=== PATIENT | male | born 1965 | race Caucasian/White ===

== ENCOUNTER 2017-11-21 13:17 | Emergency (ER) | payer MEDICAID ==
[~2017-11-21] VITALS: Ht 172.7 cm; Wt 70.0 kg
[2017-11-21] MEDS ORDERED: LEVE500T53 PO (13:32)
[2017-11-21 14:00] LABS: BASOPHILS # (AUTO) 0.04 x10^3/uL (0-0.1); BASOPHILS % (AUTO) 1 % (0-1); EOSINOPHILS # (AUTO) 0.15 x10^3/uL (0-0.4); EOSINOPHILS % (AUTO) 2 % (1-7); LYMPHOCYTES # (AUTO) 2.03 x10^3/uL (1-3.4); LYMPHOCYTES % (AUTO) 28 % (22-44); MD NO; MEAN CORPUSCULAR HEMOGLOBIN 29.8 pg (27.5-34.5); MEAN CORPUSCULAR HGB CONC 33.5 g/dL (33.2-36.2); MEAN CORPUSCULAR VOLUME 88.8 fL (81-97); MEAN PLATELET VOLUME 8.2 fL (7.4-10.4); MONOCYTES # (AUTO) 0.66 x10^3/uL (0.2-0.8); MONOCYTES % (AUTO) 9 % (2-9); NEUTROPHILS # (AUTO) 4.38 x10^3/uL (1.8-6.8); NEUTROPHILS % (AUTO) 60 % (42-75); PLATELET COUNT 237 x10^3/uL (130-400); RED BLOOD COUNT 5.08 x10^6/uL (4.38-5.82); RED CELL DISTRIBUTION WIDTH 14.9 % (9.4-14.8)
[2017-11-21 14:09] LABS: ALANINE AMINOTRANSFERASE 29 U/L (12-78); ALBUMIN 3.9 g/dL (3.4-5.0); ANION GAP 7 mmol/L (5-15); CHLORIDE 105 mmol/L (98-107)
[2017-11-21 14:12] LABS: ALKALINE PHOSPHATASE 79 U/L (45-117); BILIRUBIN,TOTAL 0.5 mg/dL (0.2-1.0); CREATININE 0.76 mg/dL (0.7-1.3)
[2017-11-21 15:12] VITALS: BP 113/60
[2017-11-21 16:01] LABS: AMPHETAMINE SCREEN, URINE Negative (Negative); BARBITURATE SCREEN, URINE Negative (Negative); BENZODIAZEPINE SCREEN, URINE Negative (Negative); CANNABINOID SCREEN, URINE Positive (Negative); COCAINE SCREEN, URINE Negative (Negative); METHADONE SCREEN, URINE Negative (Negative); OPIATE SCREEN, URINE Negative (Negative)
== END 2017-11-21 15:33 | disposition home or self-care (01) ==
LOC: ED 15:30
DX: R55 Syncope and collapse (principal); F17.200 Nicotine dependence, unspecified, uncomplicated; Z79.899 Other long term (current) drug therapy
CPT/HCPCS: 36415; 80053; 80307; 85025; 93005; 99285

== ENCOUNTER 2017-11-29 22:26 | Emergency (ER) | payer MEDICAID ==
[~2017-11-29] VITALS: Ht 170.2 cm; Wt 80.0 kg
[~2017-11-29 22:26] MED LIST: LEVE500T53 PO
[2017-11-29] MEDS ORDERED: AZITHROMYCIN 500 MG TABLET ONE (22:39)
[2017-11-29] MEDS ORDERED: KETOROLAC 30 MG/1 ML ONE (22:39)
[2017-11-29] MEDS ORDERED: methylPREDNISolone SOD SUCC 125 MG/2 ML ONE (22:40)
[2017-11-29] MEDS ORDERED: ALBU1.25 NEB (22:47)
[2017-11-29] MEDS ORDERED: methylPREDNISolone SOD SUCC 125 MG/2 ML IVP ONE (23:00)
[2017-11-29] MEDS ORDERED: SODIUM CHLORIDE 0.9% 1,000ML IVBOLUS ONE (23:00)
[2017-11-29] MEDS ORDERED: AZITHROMYCIN 500 MG TABLET PO ONE (23:00)
[2017-11-29] MEDS ORDERED: KETOROLAC 30 MG/1 ML IVPush ONE (23:00)
[2017-11-29 23:15] LABS: BASOPHILS # (AUTO) 0.05 x10^3/uL (0-0.1); BASOPHILS % (AUTO) 1 % (0-1); EOSINOPHILS # (AUTO) 0.12 x10^3/uL (0-0.4); EOSINOPHILS % (AUTO) 1 % (1-7); LYMPHOCYTES # (AUTO) 2.38 x10^3/uL (1-3.4); LYMPHOCYTES % (AUTO) 29 % (22-44); MD NO; MEAN CORPUSCULAR HEMOGLOBIN 29.8 pg (27.5-34.5); MEAN CORPUSCULAR HGB CONC 33.6 g/dL (33.2-36.2); MEAN CORPUSCULAR VOLUME 88.8 fL (81-97); MEAN PLATELET VOLUME 7.9 fL (7.4-10.4); MONOCYTES # (AUTO) 0.81 x10^3/uL (0.2-0.8); MONOCYTES % (AUTO) 10 % (2-9); NEUTROPHILS # (AUTO) 4.85 x10^3/uL (1.8-6.8); NEUTROPHILS % (AUTO) 59 % (42-75); PLATELET COUNT 206 x10^3/uL (130-400); RED BLOOD COUNT 4.62 x10^6/uL (4.38-5.82); RED CELL DISTRIBUTION WIDTH 15.4 % (9.4-14.8)
[2017-11-29 23:26] LABS: ALANINE AMINOTRANSFERASE 29 U/L (12-78); ALBUMIN 3.3 g/dL (3.4-5.0); ANION GAP 12 mmol/L (5-15); CALCIUM 8.4 mg/dL (8.5-10.1); CHLORIDE 108 mmol/L (98-107); CREATININE 0.75 mg/dL (0.7-1.3)
[2017-11-29 23:28] LABS: ALKALINE PHOSPHATASE 74 U/L (45-117); BILIRUBIN,TOTAL 0.3 mg/dL (0.2-1.0); TOTAL PROTEIN 6.9 g/dL (6.4-8.2)
[2017-11-29 23:43] VITALS: BP 114/70
== END 2017-11-29 23:53 | disposition home or self-care (01) ==
LOC: ED 23:47
DX: J06.9 Acute upper respiratory infection, unspecified (principal); J44.9 Chronic obstructive pulmonary disease, unspecified; E86.0 Dehydration; G40.909 Epilepsy, unspecified, not intractable, without status epilepticus
CPT/HCPCS: 36415; 71045; 80053; 85025; 96361; 96374; 96375; 99285; J1885; J2930; J7030

== ENCOUNTER 2018-01-02 13:57 | Emergency (ER) | payer MEDICAID ==
[~2018-01-02] VITALS: Ht 167.6 cm; Wt 82.0 kg
[~2018-01-02 13:57] MED LIST changes: +ALBU1.25 NEB
[2018-01-02] MEDS ORDERED: ASPIRIN 81 MG TABLET CHEW PO ONE (14:30)
[2018-01-02 14:55] LABS: BASOPHILS # (AUTO) 0.03 x10^3/uL (0-0.1); BASOPHILS % (AUTO) 0 % (0-1); EOSINOPHILS # (AUTO) 0.14 x10^3/uL (0-0.4); EOSINOPHILS % (AUTO) 2 % (1-7); LYMPHOCYTES # (AUTO) 1.84 x10^3/uL (1-3.4); LYMPHOCYTES % (AUTO) 20 % (22-44); MD NO; MEAN CORPUSCULAR HEMOGLOBIN 31.1 pg (27.5-34.5); MEAN CORPUSCULAR HGB CONC 33.6 g/dL (33.2-36.2); MEAN CORPUSCULAR VOLUME 92.6 fL (81-97); MONOCYTES # (AUTO) 0.67 x10^3/uL (0.2-0.8); MONOCYTES % (AUTO) 7 % (2-9); NEUTROPHILS # (AUTO) 6.47 x10^3/uL (1.8-6.8); NEUTROPHILS % (AUTO) 71 % (42-75); PLATELET COUNT 204 x10^3/uL (130-400); RED BLOOD COUNT 4.97 x10^6/uL (4.38-5.82); RED CELL DISTRIBUTION WIDTH 16.5 % (9.4-14.8)
[2018-01-02 15:05] LABS: ALBUMIN 3.9 g/dL (3.4-5.0); ANION GAP 5 mmol/L (5-15); CALCIUM 8.7 mg/dL (8.5-10.1); CHLORIDE 108 mmol/L (98-107); CREATININE 0.92 mg/dL (0.7-1.3)
[2018-01-02 15:09] LABS: TROPONIN I < 0.015 ng/mL (0.000-0.045)
[2018-01-02] MEDS ORDERED: ASPIRIN 81 MG TABLET EC ONE (15:55)
[2018-01-02 15:56] VITALS: BP 125/65
[2018-01-02] MEDS ORDERED: ASPIRIN 81 MG TABLET CHEW ONE (15:59)
== END 2018-01-02 16:30 | disposition home or self-care (01) ==
LOC: ED 16:25
DX: R07.89 Other chest pain (principal); F17.200 Nicotine dependence, unspecified, uncomplicated
CPT/HCPCS: 36415; 71046; 80048; 82040; 84484; 85025; 93005; 99285

== ENCOUNTER 2018-01-25 18:44 | Emergency (ER) | payer MEDICAID ==
[~2018-01-25] VITALS: Ht 170.2 cm; Wt 77.2 kg
[2018-01-25] MEDS ORDERED: FAMOTIDINE 20 MG/2 ML IVP ONE (19:00)
[2018-01-25] MEDS ORDERED: SODIUM CHLORIDE 0.9% 1,000ML IVBOLUS ONE (19:00)
[2018-01-25] MEDS ORDERED: SODIUM CHLORIDE FLUSH 10ML SYR IVF ONE (19:00)
[2018-01-25] MEDS ORDERED: ONDANSETRON ODT 4 MG PO ONE (19:00)
[2018-01-25] MEDS ORDERED: PANTOPRAZOLE 80 MG in SODIUM CHLORIDE 0.9% 50 ML IVPB ONE (19:26)
[2018-01-25] MEDS ORDERED: MORPHINE SULFATE 4 MG/ML, 1ML IVPush PRN (19:30)
[2018-01-25] MEDS ORDERED: OCTREOTIDE 100MCG/ML, 1ML (0.1MG/ML) IV ONE (19:30)
[2018-01-25 19:49] LABS: ALANINE AMINOTRANSFERASE 30 U/L (12-78); ALBUMIN 3.9 g/dL (3.4-5.0); ANION GAP 8 mmol/L (5-15); CALCIUM 9.9 mg/dL (8.5-10.1); CHLORIDE 106 mmol/L (98-107); CREATININE 0.82 mg/dL (0.7-1.3)
[2018-01-25] MEDS ORDERED: ONDANSETRON ODT 4 MG ONE (19:50)
[2018-01-25 19:51] LABS: ALKALINE PHOSPHATASE 84 U/L (45-117); BILIRUBIN,TOTAL 0.5 mg/dL (0.2-1.0); TOTAL PROTEIN 8.1 g/dL (6.4-8.2)
[2018-01-25 20:33] LABS: BASOPHILS # (AUTO) 0.09 x10^3/uL (0-0.1); BASOPHILS % (AUTO) 1 % (0-1); EOSINOPHILS # (AUTO) 0.14 x10^3/uL (0-0.4); EOSINOPHILS % (AUTO) 1 % (1-7); LYMPHOCYTES # (AUTO) 1.75 x10^3/uL (1-3.4); LYMPHOCYTES % (AUTO) 13 % (22-44); MD NO; MEAN CORPUSCULAR HEMOGLOBIN 30.9 pg (27.5-34.5); MEAN CORPUSCULAR HGB CONC 33.4 g/dL (33.2-36.2); MEAN CORPUSCULAR VOLUME 92.5 fL (81-97); MEAN PLATELET VOLUME 7.9 fL (7.4-10.4); MONOCYTES % (AUTO) 8 % (2-9); NEUTROPHILS # (AUTO) 10.34 x10^3/uL (1.8-6.8); NEUTROPHILS % (AUTO) 77 % (42-75); PLATELET COUNT 280 x10^3/uL (130-400); RED BLOOD COUNT 5.55 x10^6/uL (4.38-5.82); RED CELL DISTRIBUTION WIDTH 15.5 % (9.4-14.8)
[2018-01-25 20:41] LABS: INTERNATIONAL NORMALIZED RATIO 1.06 (0.93-1.1); PROTHROMBIN TIME 10.9 Seconds (9.6-11.5)
[2018-01-25 21:30] VITALS: BP 133/85
== END 2018-01-25 21:33 | disposition home or self-care (01) ==
LOC: ED 21:27
DX: R11.2 Nausea with vomiting, unspecified (principal); J44.9 Chronic obstructive pulmonary disease, unspecified
CPT/HCPCS: 36415; 74021; 80053; 83690; 85025; 85610; 85730; 86677; 86850; 86900; 96365; 99285; C9113; Q0162

== ENCOUNTER 2018-02-09 08:07 | Emergency (ER) | payer MEDICAID ==
[~2018-02-09] VITALS: Ht 167.6 cm; Wt 76.8 kg
[2018-02-09] MEDS ORDERED: CEFAZOLIN 1,000 MG ONE (08:54)
[2018-02-09] MEDS ORDERED: SULFAMETH./TRIMETHOPRIM DS 800MG/160MG TABLET ONE (08:54)
[2018-02-09] MEDS ORDERED: CEFAZOLIN 1,000 MG IM ONE (09:00)
[2018-02-09] MEDS ORDERED: SULFAMETH./TRIMETHOPRIM DS 800MG/160MG TABLET PO ONE (09:00)
[2018-02-09 09:37] VITALS: BP 111/69
== END 2018-02-09 09:50 | disposition home or self-care (01) ==
LOC: ED 08:45
DX: L03.90 Cellulitis, unspecified (principal); T63.301A Toxic effect of unspecified spider venom, accidental (unintentional), initial encounter; J44.9 Chronic obstructive pulmonary disease, unspecified; Y99.8 Other external cause status; Y93.89 Activity, other specified; Y92.89 Other specified places as the place of occurrence of the external cause
CPT/HCPCS: 96372; 99283; J0690

== ENCOUNTER 2018-02-10 08:48 | Emergency (ER) | payer MEDICAID ==
[~2018-02-10] VITALS: Ht 170.2 cm; Wt 78.2 kg
[2018-02-10 08:50] VITALS: BP 117/76
[2018-02-10] MEDS ORDERED: FLUCONAZOLE 100 MG TABLET ONE (09:25)
[2018-02-10] MEDS ORDERED: FLUCONAZOLE 100 MG TABLET PO ONE (09:30)
== END 2018-02-10 09:53 | disposition home or self-care (01) ==
LOC: ED 09:20
DX: B35.6 Tinea cruris (principal); J44.9 Chronic obstructive pulmonary disease, unspecified
CPT/HCPCS: 99283

== ENCOUNTER 2018-02-11 11:53 | Emergency (ER) | payer MEDICAID ==
[~2018-02-11] VITALS: Ht 170.2 cm; Wt 76.6 kg
[2018-02-11] MEDS ORDERED: BACITRACIN ZINC OINT 500U/GM, 0.9 GM ONE (12:37)
[2018-02-11 13:09] VITALS: BP 105/58
== END 2018-02-11 13:41 | disposition home or self-care (01) ==
LOC: ED 12:10
DX: L03.116 Cellulitis of left lower limb (principal); B35.6 Tinea cruris; Z76.0 Encounter for issue of repeat prescription
CPT/HCPCS: 99283

== ENCOUNTER 2018-02-22 19:17 | Emergency (ER) | payer MEDICAID ==
[2018-02-22 19:34] VITALS: BP 117/85
[2018-02-22] MEDS ORDERED: IBUPROFEN 200 MG TABLET ONE (19:53)
[2018-02-22] MEDS ORDERED: IBUPROFEN 200 MG TABLET PO ONE (20:00)
== END 2018-02-22 20:27 | disposition home or self-care (01) ==
LOC: ED 20:11
DX: M79.672 Pain in left foot (principal); M79.671 Pain in right foot; F17.200 Nicotine dependence, unspecified, uncomplicated; Z59.0 Homelessness; Z72.89 Other problems related to lifestyle; Z91.14 Patient's other noncompliance with medication regimen
CPT/HCPCS: 99282

== ENCOUNTER 2018-02-27 06:12 | Emergency (ER) | payer MEDICAID ==
[~2018-02-27] VITALS: Ht 170.2 cm; Wt 71.4 kg
[2018-02-27 06:16] VITALS: BP 136/85
[2018-02-27] MEDS ORDERED: LEVE100020 PO (06:45)
[2018-02-27 06:58] LABS: BASOPHILS # (AUTO) 0.02 x10^3/uL (0-0.1); BASOPHILS % (AUTO) 0 % (0-1); EOSINOPHILS # (AUTO) 0.08 x10^3/uL (0-0.4); EOSINOPHILS % (AUTO) 1 % (1-7); LYMPHOCYTES # (AUTO) 1.33 x10^3/uL (1-3.4); LYMPHOCYTES % (AUTO) 18 % (22-44); MD NO; MEAN CORPUSCULAR HEMOGLOBIN 31.3 pg (27.5-34.5); MEAN CORPUSCULAR HGB CONC 33.5 g/dL (33.2-36.2); MEAN CORPUSCULAR VOLUME 93.5 fL (81-97); MEAN PLATELET VOLUME 8.1 fL (7.4-10.4); MONOCYTES # (AUTO) 0.57 x10^3/uL (0.2-0.8); MONOCYTES % (AUTO) 8 % (2-9); NEUTROPHILS # (AUTO) 5.34 x10^3/uL (1.8-6.8); NEUTROPHILS % (AUTO) 73 % (42-75); PLATELET COUNT 196 x10^3/uL (130-400); RED BLOOD COUNT 4.82 x10^6/uL (4.38-5.82); RED CELL DISTRIBUTION WIDTH 14.8 % (9.4-14.8)
[2018-02-27] MEDS ORDERED: ACETAMINOPHEN 500 MG TABLET PO ONE (07:00)
[2018-02-27 07:11] LABS: ALANINE AMINOTRANSFERASE 23 U/L (12-78); ALBUMIN 3.2 g/dL (3.4-5.0); ANION GAP 9 mmol/L (5-15); CALCIUM 8.3 mg/dL (8.5-10.1); CHLORIDE 109 mmol/L (98-107); CREATININE 0.69 mg/dL (0.7-1.3)
[2018-02-27 07:13] LABS: ALKALINE PHOSPHATASE 73 U/L (45-117); BILIRUBIN,TOTAL 0.4 mg/dL (0.2-1.0); TOTAL PROTEIN 6.9 g/dL (6.4-8.2)
[2018-02-27] MEDS ORDERED: COLCHICINE 0.6 MG TABLET ONE (08:30)
[2018-02-27] MEDS ORDERED: COLCHICINE 0.6 MG TABLET PO ONE ×2 (08:30)
== END 2018-02-27 08:37 | disposition home or self-care (01) ==
LOC: ED 07:49
DX: G40.409 Other generalized epilepsy and epileptic syndromes, not intractable, without status epilepticus (principal); M10.071 Idiopathic gout, right ankle and foot; J44.9 Chronic obstructive pulmonary disease, unspecified; F17.200 Nicotine dependence, unspecified, uncomplicated; Z59.0 Homelessness
CPT/HCPCS: 36415; 70450; 80053; 85025; 99285

== ENCOUNTER 2018-03-26 15:16 | Emergency (ER) | payer MEDICAID ==
[~2018-03-26] VITALS: Ht 170.2 cm; Wt 76.0 kg
[~2018-03-26 15:16] MED LIST changes: +LEVE100020 PO
[2018-03-26 15:26] VITALS: BP 132/79
== END 2018-03-26 16:47 | disposition home or self-care (01) ==
LOC: ED 16:30
DX: F10.129 Alcohol abuse with intoxication, unspecified (principal); F32.9 Major depressive disorder, single episode, unspecified; Z72.9 Problem related to lifestyle, unspecified; M10.9 Gout, unspecified; J44.9 Chronic obstructive pulmonary disease, unspecified; F17.200 Nicotine dependence, unspecified, uncomplicated
CPT/HCPCS: 99284

== ENCOUNTER 2018-04-17 17:31 | Emergency (ER) | payer MEDICAID ==
[~2018-04-17] VITALS: Ht 172.7 cm; Wt 81.8 kg
[~2018-04-17 17:31] MED LIST changes: +ACID REFLUX MED; +LEVE750T37 PO; +OLAN10TA9 PO
[2018-04-17 17:39] VITALS: BP 100/67
[2018-04-17] MEDS ORDERED: BACITRACIN ZINC OINT 500U/GM, 0.9 GM ONE (18:47)
== END 2018-04-17 19:40 | disposition left against medical advice (07) ==
LOC: ED 19:34
DX: S00.81XA Abrasion of other part of head, initial encounter (principal); S09.90XA Unspecified injury of head, initial encounter; J44.9 Chronic obstructive pulmonary disease, unspecified; W22.8XXA Striking against or struck by other objects, initial encounter; Y93.89 Activity, other specified; Y92.098 Other place in other non-institutional residence as the place of occurrence of the external cause; Y99.8 Other external cause status; G40.909 Epilepsy, unspecified, not intractable, without status epilepticus
CPT/HCPCS: 93005; 99283

== ENCOUNTER 2018-04-23 19:34 | Emergency (ER) | payer MEDICAID ==
[~2018-04-23] VITALS: Ht 167.6 cm; Wt 60.0 kg
[2018-04-23] MEDS ORDERED: BACITRACIN ZINC OINT 500U/GM, 0.9 GM ONE (20:29)
[2018-04-23 20:46] LABS: BASOPHILS # (AUTO) 0.06 x10^3/uL (0-0.1); BASOPHILS % (AUTO) 1 % (0-1); EOSINOPHILS # (AUTO) 0.14 x10^3/uL (0-0.4); EOSINOPHILS % (AUTO) 2 % (1-7); LYMPHOCYTES # (AUTO) 1.92 x10^3/uL (1-3.4); LYMPHOCYTES % (AUTO) 23 % (22-44); MD NO; MEAN CORPUSCULAR HEMOGLOBIN 30.1 pg (27.5-34.5); MEAN CORPUSCULAR HGB CONC 33.1 g/dL (33.2-36.2); MEAN PLATELET VOLUME 7.6 fL (7.4-10.4); MONOCYTES # (AUTO) 0.67 x10^3/uL (0.2-0.8); MONOCYTES % (AUTO) 8 % (2-9); NEUTROPHILS # (AUTO) 5.44 x10^3/uL (1.8-6.8); NEUTROPHILS % (AUTO) 66 % (42-75); PLATELET COUNT 278 x10^3/uL (130-400); RED BLOOD COUNT 4.65 x10^6/uL (4.38-5.82); RED CELL DISTRIBUTION WIDTH 14.8 % (9.4-14.8)
[2018-04-23 20:57] LABS: ALBUMIN 3.2 g/dL (3.4-5.0); ANION GAP 9 mmol/L (5-15); CALCIUM 8.3 mg/dL (8.5-10.1); CHLORIDE 110 mmol/L (98-107); CREATININE 0.88 mg/dL (0.7-1.3)
[2018-04-23 21:52] VITALS: BP 119/60
== END 2018-04-23 22:16 | disposition home or self-care (01) ==
LOC: ED 22:10
DX: G43.C0 Periodic headache syndromes in child or adult, not intractable (principal); R05 Cough; F10.20 Alcohol dependence, uncomplicated; Z72.9 Problem related to lifestyle, unspecified; F17.200 Nicotine dependence, unspecified, uncomplicated; J44.9 Chronic obstructive pulmonary disease, unspecified
CPT/HCPCS: 36415; 70450; 71045; 80048; 80307; 82040; 85025; 93005; 99285

== ENCOUNTER 2018-04-25 08:11 | Emergency (ER) | payer MEDICAID ==
[~2018-04-25] VITALS: Ht 170.2 cm; Wt 83.0 kg
[2018-04-25 08:33] VITALS: BP 138/79
== END 2018-04-25 09:58 | disposition home or self-care (01) ==
LOC: ED 09:50
DX: S00.81XD Abrasion of other part of head, subsequent encounter (principal); J44.9 Chronic obstructive pulmonary disease, unspecified; M10.9 Gout, unspecified; X58.XXXD Exposure to other specified factors, subsequent encounter; Z59.0 Homelessness
CPT/HCPCS: 99281

== ENCOUNTER 2018-05-01 13:30 | Emergency (ER) | payer MEDICAID ==
[~2018-05-01] VITALS: Ht 170.2 cm; Wt 80.8 kg
[2018-05-01 13:46] VITALS: BP 121/86
== END 2018-05-01 13:55 | disposition home or self-care (01) ==
LOC: ED 13:45
DX: B86 Scabies (principal); Z72.9 Problem related to lifestyle, unspecified; Z59.0 Homelessness; J44.9 Chronic obstructive pulmonary disease, unspecified; F41.1 Generalized anxiety disorder
CPT/HCPCS: 99283

== ENCOUNTER 2018-05-16 13:38 | Emergency (ER) | payer MEDICAID ==
[~2018-05-16] VITALS: Ht 172.7 cm; Wt 79.0 kg
[2018-05-16 13:47] VITALS: BP 111/74
== END 2018-05-16 14:57 | disposition home or self-care (01) ==
LOC: ED 14:50
DX: B86 Scabies (principal); J20.8 Acute bronchitis due to other specified organisms; B87.89 Myiasis of other sites; F41.1 Generalized anxiety disorder; J44.9 Chronic obstructive pulmonary disease, unspecified
CPT/HCPCS: 99283

== ENCOUNTER 2018-05-21 08:01 | Inpatient (IN) | payer MEDICAID ==
[~2018-05-21] VITALS: Ht 172.7 cm; Wt 70.2 kg
[2018-05-21] MEDS ORDERED: CLINDAMYCIN PMX 900MG/50ML 50 ML IVPB ONE (08:30)
[2018-05-21] MEDS ORDERED: MORPHINE SULFATE 4 MG/ML, 1ML IV PRN (08:30)
[2018-05-21] MEDS ORDERED: SODIUM CHLORIDE FLUSH 10ML SYR IVF ONE (08:30)
[2018-05-21] MEDS ORDERED: LIDOCAINE-MPF 1%, 5ML INFIL ONE (08:30)
[2018-05-21] MEDS ORDERED: SODIUM CHLORIDE 0.9% 1,000ML IVBOLUS ONE (08:30)
[2018-05-21] MEDS ORDERED: ONDANSETRON 2MG/ML, 2ML IVPush ONE (08:30)
[2018-05-21] MEDS ORDERED: LIDOCAINE-MPF 1%, 5ML ONE (08:52)
[2018-05-21] MEDS ORDERED: ONDANSETRON 2MG/ML, 2ML ONE (08:52)
[2018-05-21] MEDS ORDERED: CLINDAMYCIN PMX 900MG/50ML 50 ML ONE (08:53)
[2018-05-21] MEDS ORDERED: MORPHINE SULFATE 4 MG/ML, 1ML ONE (08:53)
[2018-05-21 09:14] LABS: HCT (SEDRATE) 43.7 % (39.2-51.8)
[2018-05-21 09:15] LABS: MEAN CORPUSCULAR HEMOGLOBIN 30.4 pg (27.5-34.5); MEAN CORPUSCULAR HGB CONC 33.8 g/dL (33.2-36.2); MEAN CORPUSCULAR VOLUME 89.9 fL (81-97); PLATELET COUNT 187 x10^3/uL (130-400); RED BLOOD COUNT 4.88 x10^6/uL (4.38-5.82); RED CELL DISTRIBUTION WIDTH 15.3 % (9.4-14.8)
[2018-05-21 09:25] LABS: ANION GAP 8 mmol/L (5-15); CALCIUM 7.9 mg/dL (8.5-10.1); CHLORIDE 99 mmol/L (98-107); CREATININE 0.67 mg/dL (0.7-1.3)
[2018-05-21 09:26] LABS: ALBUMIN 3.2 g/dL (3.4-5.0)
[2018-05-21 09:42] LABS: BASOPHILS # (AUTO) 0.04 x10^3/uL (0-0.1); BASOPHILS % (AUTO) 0 % (0-1); EOSINOPHILS % (AUTO) 0 % (1-7); LYMPHOCYTES # (AUTO) 1.76 x10^3/uL (1-3.4); LYMPHOCYTES % (AUTO) 12 % (22-44); MD SCAN; MONOCYTES # (AUTO) 1.99 x10^3/uL (0.2-0.8); MONOCYTES % (AUTO) 14 % (2-9); NEUTROPHILS # (AUTO) 10.99 x10^3/uL (1.8-6.8); NEUTROPHILS % (AUTO) 74 % (42-75)
[2018-05-21] MEDS ORDERED: AMPICILLIN/SULBACTAM 3 GM in SODIUM CHLORIDE 0.9% 100 ML IV ONE (10:30)
[2018-05-21] MEDS ORDERED: VANCOMYCIN PER PHARMACY MC PRN ×2 (10:30→12:00)
[2018-05-21] MEDS ORDERED: PHARMACOKINETIC CONSULTATION MC ONE ×2 (11:00→13:30)
[2018-05-21] MEDS ORDERED: VANCOMYCIN 1,500 MG in SODIUM CHLORIDE 0.9% 250 ML IV ONE (11:00)
[2018-05-21] MEDS ORDERED: morphine SULFATE 10 MG/ML, 1ML IVPush PRN (12:00)
[2018-05-21] MEDS ORDERED: ONDANSETRON ODT 4 MG PO PRN (12:00)
[2018-05-21] MEDS ORDERED: BISACODYL 10 MG SUPP PR PRN (12:00)
[2018-05-21] MEDS ORDERED: LABETALOL 5MG/ML, 20ML IVPush PRN (12:00)
[2018-05-21] MEDS ORDERED: ENALAPRILAT 1.25 MG/ML, 2ML IVPush PRN (12:00)
[2018-05-21] MEDS ORDERED: ONDANSETRON 2MG/ML, 2ML IVPush PRN (12:00)
[2018-05-21] MEDS ORDERED: PHARMACOKINETIC MONITORING MC PRN (13:30)
[2018-05-21] MEDS: NICOTINE 21 MG/24 HR PATCH.TD24 TD SCH (13:45)
[2018-05-21] MEDS: SODIUM CHLORIDE 0.9% 1,000 ML IV SCH ×2 (13:45→22:17)
[2018-05-21 15:24] LABS: MICROSCOPIC NOT IND
[2018-05-21 15:32] LABS: AMPHETAMINE SCREEN, URINE Positive (Negative); BARBITURATE SCREEN, URINE Negative (Negative); BENZODIAZEPINE SCREEN, URINE Negative (Negative); CANNABINOID SCREEN, URINE Positive (Negative); COCAINE SCREEN, URINE Negative (Negative); METHADONE SCREEN, URINE Negative (Negative); OPIATE SCREEN, URINE Positive (Negative)
[2018-05-21 15:35] LABS: CULTURE INDICATED? NO
[2018-05-21] MEDS: AMPICILLIN/SULBACTAM 3 GM in SODIUM CHLORIDE 0.9% 100 ML IV SCH (18:30)
[2018-05-21] MEDS: ACETAMINOPHEN 325 MG TABLET PO PRN (18:30)
[2018-05-21 19:08] VITALS: BP 127/77
[2018-05-21] MEDS ORDERED: LEVETIRACETAM 100 MG/ML ORAL SOL PO SCH (21:00)
[2018-05-21] MEDS: DOCUSATE 100 MG CAPSULE PO SCH (22:17)
[2018-05-21] MEDS: VANCOMYCIN 1,500 MG in SODIUM CHLORIDE 0.9% 250 ML IV SCH (22:53)
[2018-05-21] MEDS ORDERED: PIPERONYL BUTOXIDE/PYRETHRINS SHAMPOO TP SCH (23:30)
[2018-05-22 01:38] VITALS: BP 112/72
[2018-05-22] MEDS: SODIUM CHLORIDE 0.9% 1,000 ML IV SCH ×2 (02:42→11:53)
[2018-05-22] MEDS: AMPICILLIN/SULBACTAM 3 GM in SODIUM CHLORIDE 0.9% 100 ML IV SCH ×4 (02:42→20:27)
[2018-05-22 06:05] LABS: BASOPHILS # (AUTO) 0.08 x10^3/uL (0-0.1); BASOPHILS % (AUTO) 1 % (0-1); EOSINOPHILS # (AUTO) 0.11 x10^3/uL (0-0.4); EOSINOPHILS % (AUTO) 1 % (1-7); LYMPHOCYTES # (AUTO) 1.66 x10^3/uL (1-3.4); LYMPHOCYTES % (AUTO) 15 % (22-44); MD NO; MEAN CORPUSCULAR HEMOGLOBIN 30.7 pg (27.5-34.5); MEAN CORPUSCULAR HGB CONC 34.1 g/dL (33.2-36.2); MEAN CORPUSCULAR VOLUME 90.1 fL (81-97); MEAN PLATELET VOLUME 8.2 fL (7.4-10.4); MONOCYTES # (AUTO) 1.36 x10^3/uL (0.2-0.8); MONOCYTES % (AUTO) 12 % (2-9); NEUTROPHILS # (AUTO) 7.85 x10^3/uL (1.8-6.8); NEUTROPHILS % (AUTO) 71 % (42-75); PLATELET COUNT 166 x10^3/uL (130-400); RED BLOOD COUNT 4.18 x10^6/uL (4.38-5.82)
[2018-05-22 06:16] LABS: ALBUMIN 2.6 g/dL (3.4-5.0); ANION GAP 6 mmol/L (5-15); CALCIUM 7.7 mg/dL (8.5-10.1); CHLORIDE 104 mmol/L (98-107)
[2018-05-22 06:19] LABS: ALANINE AMINOTRANSFERASE 143 U/L (12-78); ALKALINE PHOSPHATASE 115 U/L (45-117); BILIRUBIN,TOTAL 0.8 mg/dL (0.2-1.0); TOTAL PROTEIN 6.6 g/dL (6.4-8.2)
[2018-05-22 08:15] VITALS: BP 114/75
[2018-05-22] MEDS: POLYETHYLENE GLYCOL 17 GM PACKET PO SCH (08:59)
[2018-05-22] MEDS: ACETAMINOPHEN 325 MG TABLET PO PRN ×3 (08:59→19:09)
[2018-05-22] MEDS: LEVETIRACETAM 500 MG TABLET PO SCH ×2 (08:59→20:26)
[2018-05-22] MEDS: DOCUSATE 100 MG CAPSULE PO SCH ×2 (08:59→20:27)
[2018-05-22] MEDS: VANCOMYCIN 1,500 MG in SODIUM CHLORIDE 0.9% 250 ML IV SCH ×2 (11:13→22:37)
[2018-05-22] MEDS: NICOTINE 21 MG/24 HR PATCH.TD24 TD SCH (12:13)
[2018-05-22 13:46] VITALS: BP 113/70
[2018-05-22 20:06] VITALS: BP 118/75
[2018-05-22] MEDS: ENOXAPARIN 40 MG/0.4 ML SQ SCH (20:26)
[2018-05-22] MEDS: HYDROcodone/APAP 5/325 TABLET PO PRN (20:36)
[2018-05-23] MEDS: SODIUM CHLORIDE 0.9% 1,000 ML IV SCH (01:34)
[2018-05-23] MEDS: HYDROcodone/APAP 5/325 TABLET PO PRN ×4 (01:40→20:11)
[2018-05-23 01:45] VITALS: BP 104/64
[2018-05-23] MEDS: AMPICILLIN/SULBACTAM 3 GM in SODIUM CHLORIDE 0.9% 100 ML IV SCH ×4 (02:47→20:11)
[2018-05-23 05:41] LABS: ALANINE AMINOTRANSFERASE 135 U/L (12-78); ALBUMIN 2.6 g/dL (3.4-5.0); ANION GAP 5 mmol/L (5-15); CALCIUM 7.7 mg/dL (8.5-10.1); CHLORIDE 109 mmol/L (98-107); CREATININE 0.52 mg/dL (0.7-1.3)
[2018-05-23 05:41] LABS: BASOPHILS # (AUTO) 0.04 x10^3/uL (0-0.1); BASOPHILS % (AUTO) 1 % (0-1); EOSINOPHILS # (AUTO) 0.16 x10^3/uL (0-0.4); EOSINOPHILS % (AUTO) 2 % (1-7); LYMPHOCYTES # (AUTO) 1.59 x10^3/uL (1-3.4); LYMPHOCYTES % (AUTO) 21 % (22-44); MD NO; MEAN CORPUSCULAR HEMOGLOBIN 30.6 pg (27.5-34.5); MEAN CORPUSCULAR HGB CONC 33.4 g/dL (33.2-36.2); MEAN CORPUSCULAR VOLUME 91.6 fL (81-97); MEAN PLATELET VOLUME 8.7 fL (7.4-10.4); MONOCYTES # (AUTO) 0.79 x10^3/uL (0.2-0.8); MONOCYTES % (AUTO) 11 % (2-9); NEUTROPHILS # (AUTO) 4.94 x10^3/uL (1.8-6.8); NEUTROPHILS % (AUTO) 66 % (42-75); PLATELET COUNT 186 x10^3/uL (130-400); RED BLOOD COUNT 4.19 x10^6/uL (4.38-5.82); RED CELL DISTRIBUTION WIDTH 15.9 % (9.4-14.8)
[2018-05-23 05:43] LABS: ALKALINE PHOSPHATASE 121 U/L (45-117); BILIRUBIN,TOTAL 0.4 mg/dL (0.2-1.0); TOTAL PROTEIN 6.8 g/dL (6.4-8.2)
[2018-05-23 08:09] VITALS: BP 124/75
[2018-05-23] MEDS: LEVETIRACETAM 500 MG TABLET PO SCH ×2 (08:11→20:59)
[2018-05-23] MEDS: DOCUSATE 100 MG CAPSULE PO SCH ×2 (08:11→20:59)
[2018-05-23] MEDS: POLYETHYLENE GLYCOL 17 GM PACKET PO SCH (08:11)
[2018-05-23] MEDS: VANCOMYCIN 1,500 MG in SODIUM CHLORIDE 0.9% 250 ML IV SCH ×2 (11:12→22:51)
[2018-05-23] MEDS: NICOTINE 21 MG/24 HR PATCH.TD24 TD SCH (11:12)
[2018-05-23 13:40] LABS: ALBUMIN 2.6 g/dL (3.4-5.0); ANION GAP 5 mmol/L (5-15); CALCIUM 8.5 mg/dL (8.5-10.1); CHLORIDE 106 mmol/L (98-107)
[2018-05-23 13:42] VITALS: BP 106/63
[2018-05-23 13:45] LABS: ALANINE AMINOTRANSFERASE 136 U/L (12-78); ALKALINE PHOSPHATASE 122 U/L (45-117); BILIRUBIN,TOTAL 0.5 mg/dL (0.2-1.0); CREATININE 0.58 mg/dL (0.7-1.3); TOTAL PROTEIN 6.9 g/dL (6.4-8.2)
[2018-05-23 19:03] VITALS: BP 133/76
[2018-05-23] MEDS: ENOXAPARIN 40 MG/0.4 ML SQ SCH (20:59)
[2018-05-24] MEDS: AMPICILLIN/SULBACTAM 3 GM in SODIUM CHLORIDE 0.9% 100 ML IV SCH ×2 (02:19→08:01)
[2018-05-24 02:36] VITALS: BP 112/68
[2018-05-24 07:22] VITALS: BP 121/78
[2018-05-24] MEDS: DOCUSATE 100 MG CAPSULE PO SCH ×2 (08:01→21:10)
[2018-05-24] MEDS: LEVETIRACETAM 500 MG TABLET PO SCH ×2 (08:01→21:10)
[2018-05-24] MEDS: POLYETHYLENE GLYCOL 17 GM PACKET PO SCH (08:01)
[2018-05-24] MEDS: NICOTINE 21 MG/24 HR PATCH.TD24 TD SCH (12:36)
[2018-05-24] MEDS: VANCOMYCIN 1,500 MG in SODIUM CHLORIDE 0.9% 250 ML IV SCH ×2 (12:36→22:53)
[2018-05-24 13:29] VITALS: BP 114/77
[2018-05-24 20:02] VITALS: BP 117/74
[2018-05-24] MEDS: HYDROcodone/APAP 5/325 TABLET PO PRN (21:09)
[2018-05-24] MEDS: AMOXICILLIN/CLAV 875-125MG TABLET PO SCH (21:10)
[2018-05-24] MEDS: ENOXAPARIN 40 MG/0.4 ML SQ SCH (21:11)
[2018-05-25 01:43] VITALS: BP 104/65
[2018-05-25 06:44] VITALS: BP 102/70
[2018-05-25] MEDS: HYDROcodone/APAP 5/325 TABLET PO PRN ×4 (08:48→21:51)
[2018-05-25] MEDS: DOCUSATE 100 MG CAPSULE PO SCH ×2 (08:48→21:53)
[2018-05-25] MEDS: AMOXICILLIN/CLAV 875-125MG TABLET PO SCH ×2 (08:48→21:52)
[2018-05-25] MEDS: LEVETIRACETAM 500 MG TABLET PO SCH ×2 (08:48→21:52)
[2018-05-25] MEDS: POLYETHYLENE GLYCOL 17 GM PACKET PO SCH (08:49)
[2018-05-25] MEDS: NICOTINE 21 MG/24 HR PATCH.TD24 TD SCH (11:43)
[2018-05-25] MEDS: VANCOMYCIN 1,500 MG in SODIUM CHLORIDE 0.9% 250 ML IV SCH ×2 (11:43→23:04)
[2018-05-25 12:23] VITALS: BP 100/61
[2018-05-25 18:59] VITALS: BP 120/74
[2018-05-25] MEDS: ENOXAPARIN 40 MG/0.4 ML SQ SCH (21:53)
[2018-05-26 01:18] VITALS: BP 123/77
[2018-05-26] MEDS: HYDROcodone/APAP 5/325 TABLET PO PRN ×2 (02:03→15:29)
[2018-05-26] MEDS ORDERED: ACET325T14 PO (07:38)
[2018-05-26] MEDS ORDERED: AMOX1TAB12 PO (07:38)
[2018-05-26] MEDS ORDERED: SULF-169 PO (07:38)
[2018-05-26] MEDS: POLYETHYLENE GLYCOL 17 GM PACKET PO SCH (09:00)
[2018-05-26] MEDS: DOCUSATE 100 MG CAPSULE PO SCH (09:00)
[2018-05-26] MEDS: AMOXICILLIN/CLAV 875-125MG TABLET PO SCH (09:00)
[2018-05-26 09:40] VITALS: BP 115/73
[2018-05-26] MEDS: LEVETIRACETAM 500 MG TABLET PO SCH (10:07)
[2018-05-26] MEDS: VANCOMYCIN 1,500 MG in SODIUM CHLORIDE 0.9% 250 ML IV SCH (11:00)
[2018-05-26] MEDS: NICOTINE 21 MG/24 HR PATCH.TD24 TD SCH (12:00)
== END 2018-05-26 16:00 | disposition home or self-care (01) | DRG 872 ==
LOC: ED 08:46 → EDIP 10:55 → 3NE 11:49 → 4NOR 05-22 01:52
PROVIDERS: ADMIT Hospitalist; ATTEND Hospitalist
DX: A41.9 Sepsis, unspecified organism (principal); L03.114 Cellulitis of left upper limb; S62.391B Other fracture of second metacarpal bone, left hand, initial encounter for open fracture; E87.1 Hypo-osmolality and hyponatremia; W20.8XXA Other cause of strike by thrown, projected or falling object, initial encounter; Y93.89 Activity, other specified; Y92.89 Other specified places as the place of occurrence of the external cause; Y99.8 Other external cause status; F12.10 Cannabis abuse, uncomplicated; F15.10 Other stimulant abuse, uncomplicated; F17.210 Nicotine dependence, cigarettes, uncomplicated; G40.909 Epilepsy, unspecified, not intractable, without status epilepticus; G89.29 Other chronic pain; Z59.0 Homelessness; Z91.19 Patient's noncompliance with other medical treatment and regimen; Z87.820 Personal history of traumatic brain injury; J44.9 Chronic obstructive pulmonary disease, unspecified; B95.0 Streptococcus, group A, as the cause of diseases classified elsewhere; Z79.899 Other long term (current) drug therapy
CPT/HCPCS: 36415; 80048; 80053; 80202; 80307; 81003; 82040; 83605; 85025; 85651; 86140; 87040; 87070; 87077; 87147; 87186; 87205; 96365; 96368; 96375; 99285; G0378; J0295; J1650; J2405; J3370; J2270; J7030; J7050

== ENCOUNTER 2018-05-28 12:23 | Emergency (ER) | payer MEDICAID ==
[~2018-05-28] VITALS: Ht 172.7 cm; Wt 81.0 kg
[~2018-05-28 12:23] MED LIST changes: +ACET325T14 PO; +AMOX1TAB12 PO; +SULF-169 PO
[2018-05-28 12:36] VITALS: BP 133/87
== END 2018-05-28 13:17 | disposition home or self-care (01) ==
LOC: ED 12:56
DX: L03.114 Cellulitis of left upper limb (principal); J44.9 Chronic obstructive pulmonary disease, unspecified; G40.909 Epilepsy, unspecified, not intractable, without status epilepticus; M10.9 Gout, unspecified
CPT/HCPCS: 99283

== ENCOUNTER 2018-06-14 13:45 | Emergency (ER) | payer MEDICAID ==
[~2018-06-14] VITALS: Ht 172.7 cm; Wt 79.3 kg
[2018-06-14 13:46] VITALS: BP 113/76
[2018-06-14] MEDS ORDERED: LEVE500T53 PO (14:40)
== END 2018-06-14 15:43 | disposition home or self-care (01) ==
LOC: ED 15:20
DX: S62.311A Displaced fracture of base of second metacarpal bone, left hand, initial encounter for closed fracture (principal); F12.10 Cannabis abuse, uncomplicated; W31.89XA Contact with other specified machinery, initial encounter; Y93.89 Activity, other specified; Y92.89 Other specified places as the place of occurrence of the external cause; Y99.8 Other external cause status
CPT/HCPCS: 29125; 99284

== ENCOUNTER 2018-06-16 07:40 | Emergency (ER) | payer MEDICAID ==
[~2018-06-16] VITALS: Ht 172.7 cm; Wt 77.4 kg
[2018-06-16 07:43] VITALS: BP 135/82
[2018-06-16] MEDS ORDERED: ACETAMINOPHEN 500 MG TABLET ONE (08:09)
[2018-06-16] MEDS ORDERED: NAPR-685 PO (08:23)
[2018-06-16] MEDS ORDERED: ACETAMINOPHEN 500 MG TABLET PO ONE (09:00)
== END 2018-06-16 08:38 | disposition home or self-care (01) ==
LOC: ED 08:07
DX: S62.311A Displaced fracture of base of second metacarpal bone, left hand, initial encounter for closed fracture (principal); J44.9 Chronic obstructive pulmonary disease, unspecified; G40.909 Epilepsy, unspecified, not intractable, without status epilepticus; X58.XXXA Exposure to other specified factors, initial encounter; Y93.89 Activity, other specified; Y92.89 Other specified places as the place of occurrence of the external cause; Y99.8 Other external cause status
CPT/HCPCS: 29260; 99283

== ENCOUNTER 2018-06-22 15:26 | Emergency (ER) | payer MEDICAID ==
[~2018-06-22] VITALS: Ht 172.7 cm; Wt 75.0 kg
[~2018-06-22 15:26] MED LIST changes: +NAPR-685 PO
[2018-06-22 15:30] VITALS: BP 118/68
[2018-06-22 16:04] LABS: BASOPHILS # (AUTO) 0.04 x10^3/uL (0-0.1); BASOPHILS % (AUTO) 1 % (0-1); EOSINOPHILS # (AUTO) 0.12 x10^3/uL (0-0.4); EOSINOPHILS % (AUTO) 2 % (1-7); LYMPHOCYTES # (AUTO) 1.25 x10^3/uL (1-3.4); LYMPHOCYTES % (AUTO) 18 % (22-44); MD NO; MEAN CORPUSCULAR HEMOGLOBIN 30.6 pg (27.5-34.5); MEAN CORPUSCULAR HGB CONC 34.2 g/dL (33.2-36.2); MEAN CORPUSCULAR VOLUME 89.6 fL (81-97); MONOCYTES # (AUTO) 0.73 x10^3/uL (0.2-0.8); MONOCYTES % (AUTO) 11 % (2-9); NEUTROPHILS # (AUTO) 4.71 x10^3/uL (1.8-6.8); NEUTROPHILS % (AUTO) 69 % (42-75); PLATELET COUNT 248 x10^3/uL (130-400); RED CELL DISTRIBUTION WIDTH 16.1 % (9.4-14.8)
[2018-06-22 16:15] LABS: ALBUMIN 3.4 g/dL (3.4-5.0); ANION GAP 5 mmol/L (5-15); CHLORIDE 105 mmol/L (98-107); CREATININE 0.72 mg/dL (0.7-1.3)
[2018-06-22] MEDS ORDERED: LEVETIRACETAM 500 MG TABLET ONE (16:39)
[2018-06-22] MEDS ORDERED: LEVETIRACETAM 500 MG TABLET PO ONE (17:00)
== END 2018-06-22 17:25 | disposition home or self-care (01) ==
LOC: ED 17:06
DX: G40.319 Generalized idiopathic epilepsy and epileptic syndromes, intractable, without status epilepticus (principal); J44.9 Chronic obstructive pulmonary disease, unspecified; F10.10 Alcohol abuse, uncomplicated
CPT/HCPCS: 36415; 80048; 82040; 85025; 99284

== ENCOUNTER 2018-06-28 08:15 | Emergency (ER) | payer MEDICAID ==
[~2018-06-28] VITALS: Ht 172.7 cm; Wt 79.4 kg
[2018-06-28 09:08] LABS: BASOPHILS # (AUTO) 0.01 x10^3/uL (0-0.1); BASOPHILS % (AUTO) 0 % (0-1); EOSINOPHILS % (AUTO) 1 % (1-7); LYMPHOCYTES # (AUTO) 1.13 x10^3/uL (1-3.4); LYMPHOCYTES % (AUTO) 13 % (22-44); MD NO; MEAN CORPUSCULAR HGB CONC 33.6 g/dL (33.2-36.2); MEAN CORPUSCULAR VOLUME 89.2 fL (81-97); MEAN PLATELET VOLUME 7.8 fL (7.4-10.4); MONOCYTES # (AUTO) 0.83 x10^3/uL (0.2-0.8); MONOCYTES % (AUTO) 10 % (2-9); NEUTROPHILS # (AUTO) 6.43 x10^3/uL (1.8-6.8); NEUTROPHILS % (AUTO) 76 % (42-75); PLATELET COUNT 222 x10^3/uL (130-400); RED BLOOD COUNT 4.44 x10^6/uL (4.38-5.82); RED CELL DISTRIBUTION WIDTH 16.3 % (9.4-14.8)
[2018-06-28 09:16] LABS: ALANINE AMINOTRANSFERASE 21 U/L (12-78); ALBUMIN 3.3 g/dL (3.4-5.0); ANION GAP 4 mmol/L (5-15); CALCIUM 8.7 mg/dL (8.5-10.1); CHLORIDE 106 mmol/L (98-107); CREATININE 0.64 mg/dL (0.7-1.3)
[2018-06-28 09:18] LABS: ALKALINE PHOSPHATASE 78 U/L (45-117); BILIRUBIN,TOTAL 0.2 mg/dL (0.2-1.0); TOTAL PROTEIN 7.3 g/dL (6.4-8.2)
[2018-06-28 10:07] VITALS: BP 104/56
[2018-06-28] MEDS ORDERED: IBUPROFEN 200 MG TABLET ONE (10:13)
[2018-06-28] MEDS ORDERED: IBUPROFEN 200 MG TABLET PO ONE (10:30)
== END 2018-06-28 10:28 | disposition home or self-care (01) ==
LOC: ED 10:13
DX: F10.239 Alcohol dependence with withdrawal, unspecified (principal); M79.642 Pain in left hand; G40.909 Epilepsy, unspecified, not intractable, without status epilepticus; F41.1 Generalized anxiety disorder; J44.9 Chronic obstructive pulmonary disease, unspecified; M10.9 Gout, unspecified
CPT/HCPCS: 36415; 80053; 80307; 85025; 99283

== ENCOUNTER 2018-06-28 17:38 | Emergency (ER) | payer MEDICAID ==
[~2018-06-28] VITALS: Ht 172.7 cm; Wt 81.3 kg
[2018-06-28] MEDS ORDERED: ALBUTEROL/IPRATROPIUM 2.5MG/0.5MG, 3 ML NPPB ONE (18:30)
[2018-06-28] MEDS ORDERED: ALBUTEROL/IPRATROPIUM 2.5MG/0.5MG, 3 ML ONE (18:35)
[2018-06-28 18:47] VITALS: BP 90/50
== END 2018-06-28 19:00 | disposition home or self-care (01) ==
LOC: ED 17:48
DX: J44.1 Chronic obstructive pulmonary disease with (acute) exacerbation (principal); Z72.9 Problem related to lifestyle, unspecified; F17.200 Nicotine dependence, unspecified, uncomplicated; F20.9 Schizophrenia, unspecified; F41.1 Generalized anxiety disorder; G40.909 Epilepsy, unspecified, not intractable, without status epilepticus; J44.9 Chronic obstructive pulmonary disease, unspecified; M10.9 Gout, unspecified
CPT/HCPCS: 71046; 93005; 94640; 99283; J7512; J7620

== ENCOUNTER 2018-07-03 06:06 | Emergency (ER) | payer MEDICAID ==
[~2018-07-03] VITALS: Ht 172.7 cm; Wt 81.1 kg
[2018-07-03 06:09] VITALS: BP 115/71
[2018-07-03] MEDS ORDERED: IBUPROFEN 200 MG TABLET PO ONE (06:30)
[2018-07-03] MEDS ORDERED: IBUPROFEN 600 MG TABLET ONE (06:37)
== END 2018-07-03 06:51 | disposition home or self-care (01) ==
LOC: ED 06:45
DX: M79.642 Pain in left hand (principal); B85.1 Pediculosis due to Pediculus humanus corporis; F17.200 Nicotine dependence, unspecified, uncomplicated
CPT/HCPCS: 29125; 99283

== ENCOUNTER 2018-07-03 13:04 | Emergency (ER) | payer MEDICAID ==
[~2018-07-03] VITALS: Ht 172.7 cm; Wt 81.7 kg
[2018-07-03 14:10] LABS: BASOPHILS # (AUTO) 0.06 x10^3/uL (0-0.1); BASOPHILS % (AUTO) 1 % (0-1); EOSINOPHILS # (AUTO) 0.14 x10^3/uL (0-0.4); EOSINOPHILS % (AUTO) 2 % (1-7); LYMPHOCYTES # (AUTO) 1.39 x10^3/uL (1-3.4); LYMPHOCYTES % (AUTO) 14 % (22-44); MD NO; MEAN CORPUSCULAR HEMOGLOBIN 29.4 pg (27.5-34.5); MEAN CORPUSCULAR HGB CONC 32.8 g/dL (33.2-36.2); MEAN CORPUSCULAR VOLUME 89.8 fL (81-97); MEAN PLATELET VOLUME 7.9 fL (7.4-10.4); MONOCYTES # (AUTO) 0.65 x10^3/uL (0.2-0.8); MONOCYTES % (AUTO) 7 % (2-9); NEUTROPHILS # (AUTO) 7.62 x10^3/uL (1.8-6.8); NEUTROPHILS % (AUTO) 77 % (42-75); PLATELET COUNT 243 x10^3/uL (130-400); RED BLOOD COUNT 4.51 x10^6/uL (4.38-5.82); RED CELL DISTRIBUTION WIDTH 16.3 % (9.4-14.8)
[2018-07-03 14:21] LABS: ALBUMIN 3.1 g/dL (3.4-5.0); ANION GAP 9 mmol/L (5-15); CALCIUM 8.5 mg/dL (8.5-10.1); CHLORIDE 105 mmol/L (98-107)
[2018-07-03 14:25] LABS: ALANINE AMINOTRANSFERASE 23 U/L (12-78); ALKALINE PHOSPHATASE 95 U/L (45-117); BILIRUBIN,TOTAL 0.3 mg/dL (0.2-1.0); CREATININE 0.81 mg/dL (0.7-1.3); TOTAL PROTEIN 7.3 g/dL (6.4-8.2)
[2018-07-03 17:09] VITALS: BP 127/77
== END 2018-07-03 18:42 ==
LOC: ED 18:39
DX: B85.1 Pediculosis due to Pediculus humanus corporis (principal); B85.3 Phthiriasis; R10.84 Generalized abdominal pain; F41.1 Generalized anxiety disorder; J44.9 Chronic obstructive pulmonary disease, unspecified; G40.909 Epilepsy, unspecified, not intractable, without status epilepticus; Z72.9 Problem related to lifestyle, unspecified; Z75.9 Unspecified problem related to medical facilities and other health care; Z91.14 Patient's other noncompliance with medication regimen; Z63.8 Other specified problems related to primary support group; Z87.820 Personal history of traumatic brain injury
CPT/HCPCS: 36415; 80053; 85025; 99283

== ENCOUNTER 2018-07-05 00:31 | Emergency (ER) | payer MEDICAID ==
[~2018-07-05] VITALS: Ht 172.7 cm; Wt 78.0 kg
[2018-07-05 00:33] VITALS: BP 141/85
[2018-07-05 00:56] LABS: BASOPHILS % (AUTO) 1 % (0-1); EOSINOPHILS # (AUTO) 0.14 x10^3/uL (0-0.4); EOSINOPHILS % (AUTO) 1 % (1-7); LYMPHOCYTES # (AUTO) 2.01 x10^3/uL (1-3.4); LYMPHOCYTES % (AUTO) 19 % (22-44); MD NO; MEAN CORPUSCULAR HEMOGLOBIN 30.1 pg (27.5-34.5); MEAN CORPUSCULAR HGB CONC 33.7 g/dL (33.2-36.2); MEAN CORPUSCULAR VOLUME 89.3 fL (81-97); MEAN PLATELET VOLUME 7.5 fL (7.4-10.4); MONOCYTES % (AUTO) 9 % (2-9); NEUTROPHILS # (AUTO) 7.54 x10^3/uL (1.8-6.8); NEUTROPHILS % (AUTO) 70 % (42-75); PLATELET COUNT 318 x10^3/uL (130-400); RED BLOOD COUNT 4.95 x10^6/uL (4.38-5.82); RED CELL DISTRIBUTION WIDTH 16.1 % (9.4-14.8)
[2018-07-05 01:08] LABS: ALANINE AMINOTRANSFERASE 30 U/L (12-78); ALBUMIN 3.5 g/dL (3.4-5.0); ANION GAP 7 mmol/L (5-15); CALCIUM 8.7 mg/dL (8.5-10.1); CHLORIDE 103 mmol/L (98-107)
[2018-07-05 01:10] LABS: ALKALINE PHOSPHATASE 104 U/L (45-117); BILIRUBIN,TOTAL 0.2 mg/dL (0.2-1.0); TOTAL PROTEIN 8.2 g/dL (6.4-8.2)
== END 2018-07-05 01:47 | disposition home or self-care (01) ==
LOC: ED 00:40
DX: F10.20 Alcohol dependence, uncomplicated (principal); Z72.9 Problem related to lifestyle, unspecified; J44.9 Chronic obstructive pulmonary disease, unspecified; F17.210 Nicotine dependence, cigarettes, uncomplicated; G40.909 Epilepsy, unspecified, not intractable, without status epilepticus
CPT/HCPCS: 36415; 80053; 80307; 85025; 99283

== ENCOUNTER 2018-07-08 00:37 | Emergency (ER) | payer MEDICAID ==
[~2018-07-08] VITALS: Ht 172.7 cm; Wt 74.0 kg
[2018-07-08 00:39] VITALS: BP 130/80
== END 2018-07-08 01:33 | disposition home or self-care (01) ==
LOC: ED 01:13
DX: F99 Mental disorder, not otherwise specified (principal); Z00.00 Encounter for general adult medical examination without abnormal findings; G40.909 Epilepsy, unspecified, not intractable, without status epilepticus; F41.1 Generalized anxiety disorder; J44.9 Chronic obstructive pulmonary disease, unspecified
CPT/HCPCS: 99281

== ENCOUNTER 2018-08-14 16:53 | Emergency (ER) | payer MEDICAID ==
[~2018-08-14] VITALS: Ht 172.7 cm; Wt 78.4 kg
[2018-08-14 16:56] VITALS: BP 127/81
== END 2018-08-14 18:23 | disposition home or self-care (01) ==
LOC: ED 17:21
DX: S83.91XA Sprain of unspecified site of right knee, initial encounter (principal); J44.9 Chronic obstructive pulmonary disease, unspecified; G40.909 Epilepsy, unspecified, not intractable, without status epilepticus; F17.200 Nicotine dependence, unspecified, uncomplicated; V09.9XXA Pedestrian injured in unspecified transport accident, initial encounter; Y93.01 Activity, walking, marching and hiking; Y92.89 Other specified places as the place of occurrence of the external cause; Y99.8 Other external cause status
CPT/HCPCS: 99283

== ENCOUNTER 2018-09-07 17:48 | Emergency (ER) | payer MEDICAID ==
[~2018-09-07] VITALS: Ht 172.7 cm; Wt 79.9 kg
[2018-09-07 17:58] VITALS: BP 99/64
[2018-09-07 18:28] LABS: BASOPHILS # (AUTO) 0.06 x10^3/uL (0-0.1); BASOPHILS % (AUTO) 1 % (0-1); EOSINOPHILS # (AUTO) 0.23 x10^3/uL (0-0.4); EOSINOPHILS % (AUTO) 2 % (1-7); LYMPHOCYTES # (AUTO) 3.37 x10^3/uL (1-3.4); LYMPHOCYTES % (AUTO) 34 % (22-44); MD NO; MEAN CORPUSCULAR HEMOGLOBIN 31.2 pg (27.5-34.5); MEAN CORPUSCULAR VOLUME 89.1 fL (81-97); MEAN PLATELET VOLUME 7.4 fL (7.4-10.4); MONOCYTES # (AUTO) 0.57 x10^3/uL (0.2-0.8); MONOCYTES % (AUTO) 6 % (2-9); NEUTROPHILS # (AUTO) 5.72 x10^3/uL (1.8-6.8); NEUTROPHILS % (AUTO) 58 % (42-75); PLATELET COUNT 300 x10^3/uL (130-400); RED CELL DISTRIBUTION WIDTH 14.3 % (9.4-14.8)
--- NOTE | 2018-09-07 18:29 | NUR ---
PT TO XRAY AT THIS TIME.
[2018-09-07 18:38] LABS: MICROSCOPIC NOT IND
[2018-09-07 18:40] LABS: ALBUMIN 3.6 g/dL (3.4-5.0); ANION GAP 10 mmol/L (5-15); CALCIUM 8.5 mg/dL (8.5-10.1); CHLORIDE 107 mmol/L (98-107); CREATININE 0.73 mg/dL (0.7-1.3)
[2018-09-07 18:44] LABS: ALKALINE PHOSPHATASE 83 U/L (45-117); BILIRUBIN,TOTAL 0.3 mg/dL (0.2-1.0)
[2018-09-07 18:50] LABS: CULTURE INDICATED? NO
[2018-09-07 18:51] LABS: AMPHETAMINE SCREEN, URINE Negative (Negative); BARBITURATE SCREEN, URINE Negative (Negative); BENZODIAZEPINE SCREEN, URINE Negative (Negative); CANNABINOID SCREEN, URINE Negative (Negative); COCAINE SCREEN, URINE Negative (Negative); METHADONE SCREEN, URINE Negative (Negative); OPIATE SCREEN, URINE Negative (Negative)
--- NOTE | 2018-09-07 18:54 | NUR ---
SBAR HAND-OFF REPORT TO TAMIE WONG.
[2018-09-07] MEDS ORDERED: NICOTINE 14MG/24 HR PATCH.TD24 ONE (18:56)
[2018-09-07] MEDS ORDERED: NICOTINE 14MG/24 HR PATCH.TD24 TD ONE (19:00)
--- NOTE | 2018-09-07 19:02 | NUR ---
PT DEMANDING TO GO OUTSIDE TO SMOKE. POC DISCUSSED. PT INFORMED HE CANNOT LEAVE TO HAVE A SMOKE AT THIS TIME AND IF HE DOES HE WILL NEED TO SIGN OUT AMA. PT WAS AGREEABLE TO NICOTINE PATCH INSTEAD. PA CONSULTED. PT MEDICATED WITH NICOTINE PATCH. SZ PRECAUTIONS IN PLACE. BED RAILS UPX2. CALL LIGHT ON LAP.
--- NOTE | 2018-09-07 19:49 | NUR ---
PT IN ROOM AND HAS REMOVED ALL OF HIS MONITORING. PT ASSISTED WITH URINAL. PT NOW SCREAMING DUE TO WAIT TIME. PT WAS EXPLAINED AWAITING LAB RESULTS. PT BEGAN THROWING OBJECTS AROUND ROOM. CALMING MEASURES UNSUCCESSFUL. PT REQUESTING TO SPEAK TO MD. MENDIETA TO BE INFORMED.
[2018-09-07 20:31] LABS: ALANINE AMINOTRANSFERASE 42 U/L (12-78)
== END 2018-09-07 20:50 | disposition home or self-care (01) ==
LOC: ED 19:07
DX: M25.561 Pain in right knee (principal); Z72.9 Problem related to lifestyle, unspecified; F10.10 Alcohol abuse, uncomplicated; J44.9 Chronic obstructive pulmonary disease, unspecified
CPT/HCPCS: 36415; 80053; 80307; 81003; 85025; 93005; 99284

== ENCOUNTER 2018-09-30 20:25 | Emergency (ER) | payer MEDICAID ==
[~2018-09-30] VITALS: Ht 172.7 cm; Wt 76.6 kg
[2018-09-30 20:37] VITALS: BP 113/70
--- NOTE | 2018-09-30 21:19 | NUR ---
PT HERE FOR NECK PAIN, PT WAS WALKING THEN TURNED HIS NECK AND IT CAUSED A SPRAIN PER PT.
== END 2018-09-30 21:40 | disposition home or self-care (01) ==
LOC: ED 20:44
DX: G40.909 Epilepsy, unspecified, not intractable, without status epilepticus (principal); J44.9 Chronic obstructive pulmonary disease, unspecified; F17.200 Nicotine dependence, unspecified, uncomplicated; Z72.9 Problem related to lifestyle, unspecified; Z76.0 Encounter for issue of repeat prescription
CPT/HCPCS: 99283

== ENCOUNTER 2018-10-13 18:24 | Emergency (ER) | payer MEDICAID ==
[~2018-10-13] VITALS: Ht 167.6 cm; Wt 65.9 kg
[2018-10-13 18:49] VITALS: BP 93/52
[2018-10-13 18:54] LABS: BASOPHILS # (AUTO) 0.04 x10^3/uL (0-0.1); BASOPHILS % (AUTO) 0 % (0-1); EOSINOPHILS # (AUTO) 0.22 x10^3/uL (0-0.4); EOSINOPHILS % (AUTO) 2 % (1-7); LYMPHOCYTES # (AUTO) 2.35 x10^3/uL (1-3.4); LYMPHOCYTES % (AUTO) 24 % (22-44); MD NO; MEAN CORPUSCULAR HEMOGLOBIN 30.9 pg (27.5-34.5); MEAN CORPUSCULAR HGB CONC 34.5 g/dL (33.2-36.2); MEAN CORPUSCULAR VOLUME 89.5 fL (81-97); MEAN PLATELET VOLUME 7.7 fL (7.4-10.4); MONOCYTES # (AUTO) 0.53 x10^3/uL (0.2-0.8); MONOCYTES % (AUTO) 6 % (2-9); NEUTROPHILS # (AUTO) 6.49 x10^3/uL (1.8-6.8); NEUTROPHILS % (AUTO) 67 % (42-75); PLATELET COUNT 284 x10^3/uL (130-400); RED CELL DISTRIBUTION WIDTH 14.1 % (9.4-14.8)
--- NOTE | 2018-10-13 18:59 | NUR ---
Pt brought in by EMS with c/o sob beginning 45 min ago. NADN. Pt resting on gurney connected to all monitors. EKG done at bedside by ED RN. All safety measures in place. Call light within reach. No needs expressed at this time.
[2018-10-13] MEDS ORDERED: ASPIRIN 81 MG TABLET CHEW PO ONE (19:00)
--- NOTE | 2018-10-13 19:00 | NUR ---
Provided report to TAMIE Sharma. All questions answered.
[2018-10-13 19:01] LABS: ALANINE AMINOTRANSFERASE 65 U/L (12-78); ALBUMIN 3.8 g/dL (3.4-5.0); ANION GAP 8 mmol/L (5-15); CALCIUM 8.7 mg/dL (8.5-10.1); CHLORIDE 108 mmol/L (98-107); CREATININE 0.76 mg/dL (0.7-1.3)
[2018-10-13 19:06] LABS: ALKALINE PHOSPHATASE 96 U/L (45-117); BILIRUBIN,TOTAL 0.4 mg/dL (0.2-1.0); TOTAL PROTEIN 7.9 g/dL (6.4-8.2); TROPONIN I < 0.015 ng/mL (0.000-0.045)
[2018-10-13] MEDS ORDERED: ASPIRIN 81 MG TABLET CHEW ONE (19:10)
== END 2018-10-13 19:38 | disposition home or self-care (01) ==
LOC: ED 19:18
DX: R07.2 Precordial pain (principal); G40.909 Epilepsy, unspecified, not intractable, without status epilepticus; J44.9 Chronic obstructive pulmonary disease, unspecified; Z72.9 Problem related to lifestyle, unspecified; F17.200 Nicotine dependence, unspecified, uncomplicated
CPT/HCPCS: 36415; 71046; 80053; 83690; 84484; 85025; 93005; 99284

== ENCOUNTER 2018-10-15 15:20 | Emergency (ER) | payer MEDICAID ==
[~2018-10-15] VITALS: Ht 170.2 cm; Wt 82.0 kg
--- NOTE | 2018-10-15 15:20 | NUR ---
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
[2018-10-15] MEDS ORDERED: depression med (15:53)
--- NOTE | 2018-10-15 16:01 | NUR ---
pt upright on gurney awake, calm & cooperative, responds approp to staff, NAD, comfort measures provided, sitter in view. seen by ERP.
[2018-10-15 16:09] LABS: BASOPHILS # (AUTO) 0.06 x10^3/uL (0-0.1); BASOPHILS % (AUTO) 1 % (0-1); EOSINOPHILS # (AUTO) 0.19 x10^3/uL (0-0.4); EOSINOPHILS % (AUTO) 3 % (1-7); LYMPHOCYTES # (AUTO) 1.87 x10^3/uL (1-3.4); LYMPHOCYTES % (AUTO) 26 % (22-44); MD NO; MEAN CORPUSCULAR HEMOGLOBIN 30.5 pg (27.5-34.5); MEAN CORPUSCULAR HGB CONC 33.9 g/dL (33.2-36.2); MEAN CORPUSCULAR VOLUME 89.8 fL (81-97); MONOCYTES # (AUTO) 0.59 x10^3/uL (0.2-0.8); MONOCYTES % (AUTO) 8 % (2-9); NEUTROPHILS # (AUTO) 4.37 x10^3/uL (1.8-6.8); NEUTROPHILS % (AUTO) 62 % (42-75); PLATELET COUNT 239 x10^3/uL (130-400); RED BLOOD COUNT 4.82 x10^6/uL (4.38-5.82); RED CELL DISTRIBUTION WIDTH 14.3 % (9.4-14.8)
[2018-10-15 16:15] LABS: ALBUMIN 3.7 g/dL (3.4-5.0); ANION GAP 5 mmol/L (5-15); CALCIUM 8.6 mg/dL (8.5-10.1); CHLORIDE 107 mmol/L (98-107); CREATININE 0.88 mg/dL (0.7-1.3)
[2018-10-15 16:17] LABS: ACETAMINOPHEN < 2 mcg/mL (10-30); SALICYLATE LEVEL < 1.7 mg/dL (2.8-20.0)
[2018-10-15 16:27] LABS: AMPHETAMINE SCREEN, URINE Positive (Negative); BARBITURATE SCREEN, URINE Negative (Negative); BENZODIAZEPINE SCREEN, URINE Negative (Negative); CANNABINOID SCREEN, URINE Positive (Negative); COCAINE SCREEN, URINE Negative (Negative); METHADONE SCREEN, URINE Negative (Negative); OPIATE SCREEN, URINE Negative (Negative)
--- NOTE | 2018-10-15 17:02 | NUR ---
pt upright on gurney with eyes closed, calm & cooperative, responds approp to staff, NAD, comfort measures provided, dinner tray given, sitter in view.
--- NOTE | 2018-10-15 18:14 | NUR ---
pt remains upright on gurney with eyes closed, calm & cooperative, responds approp to staff, NAD, comfort measures provided, awaiting 2nd dinner tray per pt request, sitter in view.
--- NOTE | 2018-10-15 18:52 | NUR ---
SOC given report- pt awaiting telepsych consult.
--- NOTE | 2018-10-15 19:01 | NUR ---
report given to Nahomy WILLETT
--- NOTE | 2018-10-15 19:02 | NUR ---
RECEIVED BS REPORT FROM TAMIE GARCIA TO ASSUME PT. CARE. TELEPSYCH EVAL IN PROCESS NOW.
--- NOTE | 2018-10-15 19:46 | NUR ---
PT. WAS PROVIDED WITH SANDWICH FROM [employer]EE [employer]ART AND MILK PER REQUEST. SITTER IS IN [place] FOR PT. SAFETY. PT. TO BE LEGAL HOLD PER TELEPSYCH.
--- NOTE | 2018-10-15 20:39 | NUR ---
PT. RESTING ON GURNEY WITH EYES CLOSED. NADN. AWAITING [facility] EVAL FOR ADMISSION. SAFETY MEASURES OBSERVED. SITTER IN [place].
--- NOTE | 2018-10-15 21:46 | NUR ---
assumed care of pt, received report from Mo WILLETT, martine, sitter in [facility], precautions observed, will continue to monitor.
--- NOTE | 2018-10-15 22:30 | NUR ---
patient sleeping in gurney, no other needs at this time, nad, sitter in hallway, SI precautions observed, will continue to monitor.
--- NOTE | 2018-10-15 22:44 | NUR ---
Homar quigley in ED - 10/15/18 at 2245 by RADHA patient now awake, asking when will he get his bed, explained that the whole hospital is full and it may take awhile for him to get a bed
--- NOTE | 2018-10-15 22:45 | NUR ---
patient now awake, asking when will he get his bed, explained that the whole hospital is full and it may take awhile for him to get a bed. Provided with snacks and fluids, no oter needs, sitter in hallway, SI precautions observed, will continue to monitor.
--- NOTE | 2018-10-15 22:52 | NUR ---
REPORT TO SMITHA AT [facility]
--- NOTE | 2018-10-15 23:06 | NUR ---
still waiting [facility] eval for admission
--- NOTE | 2018-10-15 23:10 | NUR ---
Darwin from [facility] said the pt didn't meet the criteria and will need reevaluation tomorrow
[2018-10-15] MEDS ORDERED: LEVETIRACETAM 500 MG TABLET ONE (23:24)
[2018-10-15] MEDS ORDERED: ACETAMINOPHEN 325 MG TABLET ONE (23:24)
[2018-10-15] MEDS ORDERED: ACETAMINOPHEN 325 MG TABLET PO PRN (23:30)
[2018-10-15] MEDS ORDERED: ENOXAPARIN 40 MG/0.4 ML SQ SCH (23:30)
--- NOTE | 2018-10-15 23:54 | NUR ---
Patient sleeping in [facility], given snacks and fluids earlier, sitter in the hallway, SI precautions observed, will continue to monitor.
--- NOTE | 2018-10-16 00:45 | NUR ---
patient sleeping in gurney, respirations even and unlabored, nad, sitter in view, SI precautions observed, will continue to monitor.
--- NOTE | 2018-10-16 02:35 | NUR ---
patien asleep in gurney, respirations even and unlabored, NAD, sitter in view, SI precautions observed, will continue to monitor.
--- NOTE | 2018-10-16 03:52 | NUR ---
patien asleep in gurney, respirations even and unlabored, NAD, sitter in view, SI precautions observed, will continue to monitor.
--- NOTE | 2018-10-16 05:21 | NUR ---
patient sleeping comfortably in gurney, respirations even and unlabored, NADN sitter in view, SI precautions observed, will continue to monitor.
--- NOTE | 2018-10-16 06:24 | NUR ---
patient asleep in gurney, respirations even and unlabored, NADN sitter in view, SI precautions observed, will continue to monitor.
--- NOTE | 2018-10-16 07:01 | NUR ---
Report given to Elsa WILLETT and Dutch WILLETT
--- NOTE | 2018-10-16 07:09 | NUR ---
BEDSIDE REPORT FROM ESTELA WILLETT, PT SLEEPING IN [facility], EQUAL CHEST RISE AND FALL, SITTER AT BEDSIDE.
--- NOTE | 2018-10-16 08:33 | NUR ---
SPOKE WITH ARPAN RN @ [facility] WHO IS DISCUSSING PT ADMISSION W/ DHARA MENDIETA. PT SHOULD BE ACCEPTED TO FASCILITY THIS AM. PT IN BED, BREAKFAST TRAY DELIVERED, NAD, NO NEEDS AT THIS TIME.
--- NOTE | 2018-10-16 08:43 | NUR ---
DR MOROCHO FROM [facility] ACCEPTING PT, SCHEDULED FOR 11AM.
[2018-10-16] MEDS ORDERED: LEVETIRACETAM 500 MG TABLET PO SCH (09:00)
[2018-10-16 09:13] VITALS: BP 113/73
--- NOTE | 2018-10-16 09:13 | NUR ---
PT PROVIDED SNACKS, REQUESTED NICOTINE PATCH, MD NOTIFIED, WILL ORDER.
--- NOTE | 2018-10-16 10:14 | NUR ---
SPOKE WITH MAI AT [facility]
--- NOTE | 2018-10-16 10:32 | NUR ---
SPOKE WITH REGARDING CIWA SCORE OF 7 AND NICOTINE PATCH, TO LOOK AT EKG AND PUT IN ORDER. PT TO GO TO [facility] AT 11AM
[2018-10-16] MEDS ORDERED: NICOTINE 21 MG/24 HR PATCH.TD24 ONE (10:46)
[2018-10-16] MEDS ORDERED: NICOTINE 21 MG/24 HR PATCH.TD24 TD ONE (11:00)
[2018-10-16] MEDS ORDERED: LORazepam 2 MG/ML, 1ML IVPush PRN (11:00)
--- NOTE | 2018-10-16 11:05 | NUR ---
NICOTINE PATCH PROVIDED, PT STATES HE "NEEDS A DRINK", INSTRUCTED PT WE CANNOT GIVE HIM ALCHOL BUT HAVE ATIVAN IF NEEDED. PT DECLINES AT THIS TIME. PT SCHEDULED TO GO TO [facility] AT 11AM WITH ALTHEA
== END 2018-10-16 12:05 ==
LOC: ED 16:40 → UNDOADMOB 19:58 → EDIP 19:58 → ED 10-16 12:05
DX: R45.851 Suicidal ideations (principal); G40.909 Epilepsy, unspecified, not intractable, without status epilepticus; J44.9 Chronic obstructive pulmonary disease, unspecified; F17.200 Nicotine dependence, unspecified, uncomplicated; Z72.9 Problem related to lifestyle, unspecified
CPT/HCPCS: 36415; 80048; 80177; 80307; 80329; 82040; 85025; 99285; G0480

== ENCOUNTER 2018-10-23 16:52 | Emergency (ER) | payer MEDICAID ==
[~2018-10-23] VITALS: Ht 172.7 cm; Wt 80.1 kg
[~2018-10-23 16:52] MED LIST changes: +depression med
--- NOTE | 2018-10-23 17:22 | NUR ---
CHASE RN: THIS IS A 53 YO MALE WHO PRESENTS TO THE ER C/O LLQ PAIN X WEEKS. PT HAS BEEN SEEN FOR SAME AT [facility]. PT AO X 4. SKIN PWD. RESP EVEN AND EQAUL. NAD NOTED. REPORT TO PRIMARY RN KARLO WHO ASSUMED CARE OF PT.
[2018-10-23 17:24] VITALS: BP 95/63
[2018-10-23] MEDS ORDERED: MAALOX/HYOSCYAMINE/LIDOCAINE 45 ML BTL ONE (17:30)
[2018-10-23] MEDS ORDERED: MAALOX/HYOSCYAMINE/LIDOCAINE 45 ML BTL PO ONE (17:30)
== END 2018-10-23 17:47 | disposition home or self-care (01) ==
LOC: ED 17:41
DX: K29.70 Gastritis, unspecified, without bleeding (principal); M79.672 Pain in left foot; M79.671 Pain in right foot; M25.562 Pain in left knee; M25.561 Pain in right knee; J44.9 Chronic obstructive pulmonary disease, unspecified; Z72.9 Problem related to lifestyle, unspecified
CPT/HCPCS: 99282

== ENCOUNTER 2018-10-24 05:12 | Emergency (ER) | payer MEDICAID ==
[~2018-10-24] VITALS: Ht 172.7 cm; Wt 80.5 kg
[2018-10-24] MEDS ORDERED: ACETAMINOPHEN 325 MG TABLET ONE (05:41)
--- NOTE | 2018-10-24 05:42 | NUR ---
COMPLAINTS OF PAIN TO LEFT HAND THAT IS NOT IMPROVING. PREVIOUS HISTORY TO LEFT HAND, PATIENT DID NOT FOLLOW UP WITH ORTHOPEDIC PHYSCIAN. UPDATED ON POC. VSS.
[2018-10-24] MEDS ORDERED: ACETAMINOPHEN 325 MG TABLET PO ONE (06:00)
[2018-10-24 06:44] VITALS: BP 146/80
== END 2018-10-24 06:46 | disposition home or self-care (01) ==
LOC: ED 06:43
DX: S60.222A Contusion of left hand, initial encounter (principal); J44.9 Chronic obstructive pulmonary disease, unspecified; G40.909 Epilepsy, unspecified, not intractable, without status epilepticus; W19.XXXA Unspecified fall, initial encounter; Y93.89 Activity, other specified; Y92.410 Unspecified street and highway as the place of occurrence of the external cause; Y99.8 Other external cause status
CPT/HCPCS: 99283

== ENCOUNTER 2018-10-25 03:57 | Emergency (ER) | payer MEDICAID ==
--- NOTE | 2018-10-25 04:03 | NUR ---
PT CALLED BACK FOR TRIAGE. BEING TAKEN TO PENITENTIARY VIA [facility], ACCORDING TO [facility] SECURITY.
== END 2018-10-25 04:05 | disposition left against medical advice (07) ==
LOC: ED 03:59
DX: J00 Acute nasopharyngitis [common cold] (principal); Z53.21 Procedure and treatment not carried out due to patient leaving prior to being seen by health care provider

== ENCOUNTER 2018-11-02 05:10 | Emergency (ER) | payer MEDICAID ==
[2018-11-02] MEDS ORDERED: LEVETIRACETAM 500 MG TABLET ONE (05:46)
== END 2018-11-03 08:22 ==
LOC: ED 05:10
DX: F10.129 Alcohol abuse with intoxication, unspecified (principal); Z53.21 Procedure and treatment not carried out due to patient leaving prior to being seen by health care provider

== ENCOUNTER 2018-11-03 08:22 | Emergency (ER) | payer MEDICAID ==
[~2018-11-03] VITALS: Ht 172.7 cm; Wt 76.9 kg
[2018-11-03 08:32] VITALS: BP 124/75
--- NOTE | 2018-11-03 10:28 | NUR ---
INPATIENT CODER: CALLED FOR ROOM, NO ANSWER
--- NOTE | 2018-11-03 11:17 | NUR ---
MANAGER STYLIST: PT TO ROOM FROM BRIAN KING
--- NOTE | 2018-11-03 11:31 | NUR ---
ASSUMED CARE OF PT FROM LOBBY AT THIS TIME.
--- NOTE | 2018-11-03 11:41 | NUR ---
PT DENIES ANY SEIZURES TODAY. PT REPORTS HAVING COUGH REASON FOR COMING TO ER. PT DENIES ANY OTHER SYMPTOMS.
== END 2018-11-03 11:58 | disposition home or self-care (01) ==
LOC: ED 11:25
DX: J00 Acute nasopharyngitis [common cold] (principal); F10.20 Alcohol dependence, uncomplicated; Z72.9 Problem related to lifestyle, unspecified; F17.200 Nicotine dependence, unspecified, uncomplicated; J44.9 Chronic obstructive pulmonary disease, unspecified
CPT/HCPCS: 99281

== ENCOUNTER 2018-11-09 01:07 | Emergency (ER) | payer MEDICAID ==
[~2018-11-09] VITALS: Ht 172.7 cm; Wt 85.0 kg
[2018-11-09 01:09] VITALS: BP 136/88
[2018-11-09] MEDS ORDERED: LEVETIRACETAM 500 MG TABLET ONE (01:15)
--- NOTE | 2018-11-09 01:25 | NUR ---
TASK RN: PT MEDICATED PER EMAR W/ HOME DOSE OF KEPPRA. DC EDUCATION PROVIDED, PT DEMONSTRATES UNDERSTANDING. PT AMBULATED STEADILY TO ROOM 36 WHERE FRIEND IS BEING TREATED.
[2018-11-09] MEDS ORDERED: LEVETIRACETAM 500 MG TABLET PO ONE (01:30)
== END 2018-11-09 01:27 | disposition home or self-care (01) ==
LOC: ED 01:15
DX: G40.909 Epilepsy, unspecified, not intractable, without status epilepticus (principal); Z76.0 Encounter for issue of repeat prescription; Z72.9 Problem related to lifestyle, unspecified; J44.9 Chronic obstructive pulmonary disease, unspecified
CPT/HCPCS: 99283

== ENCOUNTER 2018-12-08 07:44 | Emergency (ER) | payer MEDICAID ==
[~2018-12-08] VITALS: Ht 172.7 cm; Wt 80.0 kg
[2018-12-08 07:50] VITALS: BP 123/79
--- NOTE | 2018-12-08 08:05 | NUR ---
SARAH HAJI ASSESSED PT, PT STATES THAT HE IS HERE FOR A CAB VOUCHER TO GO GET HIS BELONGINGS. PA TO REFILL PT'S KEPPRA PRESCRIPTION & PTTO BE DISCHARGED
== END 2018-12-08 08:16 | disposition home or self-care (01) ==
LOC: ED 08:10
DX: G40.909 Epilepsy, unspecified, not intractable, without status epilepticus (principal); Z76.0 Encounter for issue of repeat prescription; J44.9 Chronic obstructive pulmonary disease, unspecified; Z72.9 Problem related to lifestyle, unspecified; Z59.0 Homelessness; F17.200 Nicotine dependence, unspecified, uncomplicated
CPT/HCPCS: 99283

== ENCOUNTER 2018-12-19 10:37 | Emergency (ER) | payer MEDICAID ==
[~2018-12-19] VITALS: Ht 172.7 cm; Wt 79.9 kg
[2018-12-19 10:42] VITALS: BP 127/80
--- NOTE | 2018-12-19 11:55 | NUR ---
FROM LOBBY TO ROOM AT THIS TIME
--- NOTE | 2018-12-19 12:08 | NUR ---
DR LENTZ AT BEDSIDE TO MEL[facility] PT
[2018-12-19] MEDS ORDERED: IBUPROFEN 600 MG TABLET PO ONE (12:30)
[2018-12-19] MEDS ORDERED: IBUPROFEN 600 MG TABLET ONE (12:35)
--- NOTE | 2018-12-19 12:51 | NUR ---
TASK RN: FIRST CONTACT WITH PT. Provided pt medication per EMAR. Pt connected to NIBP and continous pulse ox. NADN. Both bedrails up for safety measures. Call light within reach. No needs expressed at this time.
--- NOTE | 2018-12-19 14:29 | NUR ---
NO CHANGE IN PT CONDITION NOTED. PT IN BR, THEN TO BE DC'D.
--- NOTE | 2018-12-19 14:40 | NUR ---
NO IV TO DC. REVIEWED DC INSTRUCTIONS WITH PT, UNDERSTANDING VERBALIZED. PT LEFT AMB, GAIT STEADY.
== END 2018-12-19 14:42 | disposition home or self-care (01) ==
LOC: ED 12:55
DX: R51 Headache (principal); J44.9 Chronic obstructive pulmonary disease, unspecified
CPT/HCPCS: 71045; 99283

== ENCOUNTER 2018-12-27 15:00 | Emergency (ER) | payer MEDICAID ==
[~2018-12-27] VITALS: Ht 172.7 cm; Wt 78.2 kg
[2018-12-27 15:23] VITALS: BP 103/70
--- NOTE | 2018-12-27 17:06 | NUR ---
pt given dc instructions and script, educated regarding dc rx for naproxen. pt's ankle kimmie wrapped by edt per edpa's order, pt given socks and cane. pt a&o, resps even and unlabored, nadn. pt amb to dc desk with steady gait.
== END 2018-12-27 17:05 | disposition home or self-care (01) ==
LOC: ED 16:59
DX: S90.01XA Contusion of right ankle, initial encounter (principal); S90.31XA Contusion of right foot, initial encounter; G40.909 Epilepsy, unspecified, not intractable, without status epilepticus; F41.1 Generalized anxiety disorder; F17.200 Nicotine dependence, unspecified, uncomplicated; M10.9 Gout, unspecified; W04.XXXA Fall while being carried or supported by other persons, initial encounter; Y93.89 Activity, other specified; Y92.69 Other specified industrial and construction area as the place of occurrence of the external cause; Y99.0 Civilian activity done for income or pay
CPT/HCPCS: 99283

== ENCOUNTER 2019-01-16 14:15 | Emergency (ER) | payer MEDICAID ==
[~2019-01-16] VITALS: Ht 172.7 cm; Wt 81.1 kg
[2019-01-16 14:17] VITALS: BP 147/85
== END 2019-01-16 14:39 | disposition home or self-care (01) ==
LOC: ED 14:34
DX: G40.909 Epilepsy, unspecified, not intractable, without status epilepticus (principal); Z76.0 Encounter for issue of repeat prescription; Z72.9 Problem related to lifestyle, unspecified
CPT/HCPCS: 99283

== ENCOUNTER 2019-07-26 15:49 | Emergency (ER) | payer SELFPAY ==
[~2019-07-26] VITALS: Ht 172.7 cm; Wt 80.0 kg
--- NOTE | 2019-07-26 16:05 | NUR ---
THIS IS A 53 YO M W/ C/O COUGHX1 WEEK AND COUGHING UP BLOOD X2 DAYS AND INTERMITTEND CHEST PAIN WITH HISTORY OF DAILY SMOKING. PATIENT STATES THAT HE HAD A SEIZURE YESTERDAY AND FELL THIS MORNING. PATIENTS RESPIRATIONS ARE EVEN AND UNLABORED. PATIENT IS IN NO ACUTE DISTRESS. PATIENT IS HOOKED UP TO MONITORS AND RESTING ON GURNEY WITH CALL LIGHT IN REACH. WILL CONTINUE TO MONITOR.
[2019-07-26 16:35] LABS: BASOPHILS # (AUTO) 0.08 x10^3/uL (0-0.1); BASOPHILS % (AUTO) 1 % (0-1); EOSINOPHILS % (AUTO) 3 % (1-7); LYMPHOCYTES # (AUTO) 2.44 x10^3/uL (1-3.4); LYMPHOCYTES % (AUTO) 30 % (22-44); MD NO; MEAN CORPUSCULAR HEMOGLOBIN 32.6 pg (27.5-34.5); MEAN CORPUSCULAR HGB CONC 33.4 g/dL (33.2-36.2); MEAN CORPUSCULAR VOLUME 97.5 fL (81-97); MEAN PLATELET VOLUME 7.6 fL (7.4-10.4); MONOCYTES % (AUTO) 8 % (2-9); NEUTROPHILS # (AUTO) 4.73 x10^3/uL (1.8-6.8); NEUTROPHILS % (AUTO) 59 % (42-75); PLATELET COUNT 228 x10^3/uL (130-400); RED BLOOD COUNT 4.53 x10^6/uL (4.38-5.82); RED CELL DISTRIBUTION WIDTH 13.3 % (9.4-14.8)
--- NOTE | 2019-07-26 16:46 | NUR ---
PIV STARTED 2ND SET OF BLOOD CULTURES DRAWN.
[2019-07-26 16:47] LABS: ALANINE AMINOTRANSFERASE 64 U/L (12-78); ANION GAP 9 mmol/L (5-15); CHLORIDE 108 mmol/L (98-107); CREATININE 0.74 mg/dL (0.7-1.3)
[2019-07-26 16:48] LABS: D-DIMER 0.3 ug/mlFEU (0.00-0.52); INTERNATIONAL NORMALIZED RATIO 1.07 (0.93-1.1); PROTHROMBIN TIME 11.2 Seconds (9.6-11.5)
[2019-07-26 16:51] LABS: ALKALINE PHOSPHATASE 73 U/L (45-117); BILIRUBIN,TOTAL 0.9 mg/dL (0.2-1.0); TROPONIN I < 0.015 ng/mL (0.000-0.045)
[2019-07-26] MEDS ORDERED: OMNIPAQUE 350 MG/ML, 100ML BOTTLE ONE (17:29)
[2019-07-26 17:44] VITALS: BP 95/61
--- NOTE | 2019-07-26 17:44 | NUR ---
PATIENT SLEEPING ON GURNEY. CHEST RISE AND FALL NOTED.
--- NOTE | 2019-07-26 19:01 | NUR ---
report received from nel/jesús phillips.
--- NOTE | 2019-07-26 19:12 | NUR ---
Patient given discharge instructions and they have confirmed that they understand the instructions.
== END 2019-07-26 19:14 | disposition home or self-care (01) ==
LOC: ED 19:03
DX: J44.1 Chronic obstructive pulmonary disease with (acute) exacerbation (principal)
CPT/HCPCS: 36415; 71275; 80053; 83605; 84484; 85025; 85379; 85610; 85730; 87040; 93005; 99284; Q9967

== ENCOUNTER 2019-07-28 13:04 | Emergency (ER) | payer OTHER ==
[~2019-07-28] VITALS: Ht 167.6 cm; Wt 70.0 kg
--- NOTE | 2019-07-28 13:07 | NUR ---
PATIENT BROUGHT IN BY ALTHEA WITH CHIEF COMPLAINT OF SEIZURE AT 1100 THIS MORNING. PER PATIENT HE LOST HIS KEPPRA MEDICATION. THE PATIENT IS ALERT, ORIENTED, WARM & DRY.
[2019-07-28] MEDS ORDERED: LEVETIRACETAM 500 MG TABLET ONE ×2 (13:47→16:11)
[2019-07-28] MEDS ORDERED: SODIUM CHLORIDE FLUSH 10ML SYR IVF ONE (14:00)
--- NOTE | 2019-07-28 14:01 | NUR ---
ERMD AT BEDSIDE FOR EVALUATION
[2019-07-28 14:14] LABS: BASOPHILS # (AUTO) 0.06 x10^3/uL (0-0.1); BASOPHILS % (AUTO) 1 % (0-1); EOSINOPHILS # (AUTO) 0.07 x10^3/uL (0-0.4); EOSINOPHILS % (AUTO) 1 % (1-7); LYMPHOCYTES # (AUTO) 1.83 x10^3/uL (1-3.4); LYMPHOCYTES % (AUTO) 21 % (22-44); MD NO; MEAN CORPUSCULAR HEMOGLOBIN 32.5 pg (27.5-34.5); MEAN CORPUSCULAR HGB CONC 33.8 g/dL (33.2-36.2); MEAN CORPUSCULAR VOLUME 96.1 fL (81-97); MEAN PLATELET VOLUME 7.6 fL (7.4-10.4); MONOCYTES # (AUTO) 0.52 x10^3/uL (0.2-0.8); MONOCYTES % (AUTO) 6 % (2-9); NEUTROPHILS # (AUTO) 6.42 x10^3/uL (1.8-6.8); NEUTROPHILS % (AUTO) 72 % (42-75); PLATELET COUNT 231 x10^3/uL (130-400); RED BLOOD COUNT 4.66 x10^6/uL (4.38-5.82); RED CELL DISTRIBUTION WIDTH 13.6 % (9.4-14.8)
[2019-07-28 14:19] LABS: ALANINE AMINOTRANSFERASE 54 U/L (12-78); ALBUMIN 3.8 g/dL (3.4-5.0); ANION GAP 7 mmol/L (5-15); CALCIUM 8.8 mg/dL (8.5-10.1); CHLORIDE 109 mmol/L (98-107); CREATININE 0.74 mg/dL (0.7-1.3)
[2019-07-28 14:21] LABS: ALKALINE PHOSPHATASE 64 U/L (45-117); BILIRUBIN,TOTAL 0.6 mg/dL (0.2-1.0); TOTAL PROTEIN 8.1 g/dL (6.4-8.2)
[2019-07-28 14:26] VITALS: BP 118/74
--- NOTE | 2019-07-28 14:29 | NUR ---
PIV EST. PLACED ON MONITOR, NSR 70S. CALL MCDONALD IN REACH. GIVEN BLANKET AND WATER.
--- NOTE | 2019-07-28 14:53 | NUR ---
SNACK PROVIDED, PT RESTING IN BED.
--- NOTE | 2019-07-28 15:51 | NUR ---
PT RESTING IN BED.
--- NOTE | 2019-07-28 16:06 | NUR ---
ANNE ANGEL AT BEDSIDE TO DISCUSS POC
[2019-07-28] MEDS: LEVETIRACETAM 500 MG TABLET PO SCH (16:17)
== END 2019-07-28 16:41 | disposition home or self-care (01) ==
LOC: ED 15:15
DX: G40.319 Generalized idiopathic epilepsy and epileptic syndromes, intractable, without status epilepticus (principal); J44.9 Chronic obstructive pulmonary disease, unspecified
CPT/HCPCS: 36415; 80053; 80177; 85025; 99283

== ENCOUNTER 2019-08-21 16:27 | Emergency (ER) | payer MEDICAID, OTHER ==
[~2019-08-21] VITALS: Ht 172.7 cm; Wt 80.2 kg
[2019-08-21 17:07] VITALS: BP 147/81
--- NOTE | 2019-08-21 19:25 | NUR ---
NO ANSWER WHEN PT CALLED FOR REPEAT VITALS @ 1925.
--- NOTE | 2019-08-21 19:53 | NUR ---
NO ANSWER WHEN PT CALLED FOR REPEAT VITALS @ 1952.
--- NOTE | 2019-08-21 20:17 | NUR ---
NO ANSWER WHEN PT CALLED FOR REPEAT VITALS @ 2017.
== END 2019-08-21 20:36 | disposition left against medical advice (07) ==
LOC: ED 19:00
DX: R56.9 Unspecified convulsions (principal); Z53.21 Procedure and treatment not carried out due to patient leaving prior to being seen by health care provider
CPT/HCPCS: 93005

== ENCOUNTER 2019-08-22 10:18 | Emergency (ER) | payer OTHER ==
[~2019-08-22] VITALS: Ht 172.7 cm; Wt 77.0 kg
--- NOTE | 2019-08-22 10:52 | NUR ---
Pt to 41 from second triage room.
--- NOTE | 2019-08-22 11:00 | NUR ---
PT PLACED ON ROOM MONITORING. CALL LIGHT WITHIN REACH. PT WITHOUT ANY PHYSICAL TRAUMA D/T REPORTED SEIZURE. PT C/O MILD HIGHTOWER, URINARY INCONTINENCE, NO INJURY. PT A/O X 3. AMBULATES WITH STEADY GAIT.
[2019-08-22] MEDS ORDERED: LEVETIRACETAM 500 MG TABLET ONE (11:24)
[2019-08-22] MEDS ORDERED: LEVETIRACETAM 500 MG TABLET PO ONE (11:30)
[2019-08-22] MEDS ORDERED: LEVETIRACETAM 500 MG TABLET PO SCH (11:30)
[2019-08-22 11:39] VITALS: BP 124/86
== END 2019-08-22 12:00 | disposition home or self-care (01) ==
LOC: ED 11:58
DX: G40.909 Epilepsy, unspecified, not intractable, without status epilepticus (principal); J44.9 Chronic obstructive pulmonary disease, unspecified; K21.9 Gastro-esophageal reflux disease without esophagitis; Z76.0 Encounter for issue of repeat prescription
CPT/HCPCS: 93005; 99283

== ENCOUNTER 2019-08-25 14:32 | Emergency (ER) | payer SELFPAY ==
[~2019-08-25] VITALS: Ht 172.7 cm; Wt 81.1 kg
--- NOTE | 2019-08-25 15:18 | NUR ---
PATIENT IN WITH [facility] COMPLAINT OF Right foot pain "after walking" PATIENT ALSO States he had a seizure this morning, history of seizures, noncompliant with medication. CURRENTLY A&OX4, WARM AND DRY. STATES "HES HUNGRY"
--- NOTE | 2019-08-25 16:15 | NUR ---
PT RESTING IN BED. CALL LIGHT IN REACH
[2019-08-25 16:16] VITALS: BP 106/54
--- NOTE | 2019-08-25 16:59 | NUR ---
ANNE CARTER AT BEDSIDE TO DISCUSS POC
--- NOTE | 2019-08-25 17:06 | NUR ---
PT REFUSED SPLINT
== END 2019-08-25 17:08 | disposition home or self-care (01) ==
LOC: ED 17:05
DX: S93.491A Sprain of other ligament of right ankle, initial encounter (principal); I10 Essential (primary) hypertension; J44.0 Chronic obstructive pulmonary disease with (acute) lower respiratory infection; G40.909 Epilepsy, unspecified, not intractable, without status epilepticus; X58.XXXA Exposure to other specified factors, initial encounter; Y93.89 Activity, other specified; Y92.89 Other specified places as the place of occurrence of the external cause; Y99.8 Other external cause status
CPT/HCPCS: 99283

== ENCOUNTER 2019-09-28 12:35 | Emergency (ER) | payer MEDICAID, OTHER ==
[~2019-09-28] VITALS: Ht 172.7 cm; Wt 81.3 kg
--- NOTE | 2019-09-28 13:04 | NUR ---
Pt to room from lobby in wheelchair.
[2019-09-28 13:13] VITALS: BP 112/69
--- NOTE | 2019-09-28 13:26 | NUR ---
LATE NOTE ENTRY FOR 1310: SEIZURE PRECAUTIONS IN PLACE. PT CONNECTED TO NIBP CUFF, CONTINOUS PULSE OX MONITOR, AND DIRECTOR OF MATERNITY SERVICES. CALL LIGHT WITHIN REACH. BEDRAILS UP X 2 FOR SAFETY MEASURES. EKG DONE BY PLANT ETIOLOGIST AT BEDSIDE. ED MD AT BEDSIDE. STASN. NO NEEDS EXPRESSED AT THIS TIME.
[2019-09-28] MEDS ORDERED: LEVETIRACETAM 500 MG TABLET ONE (13:28)
[2019-09-28] MEDS ORDERED: LEVETIRACETAM 500 MG TABLET PO ONE (13:30)
[2019-09-28 13:32] LABS: BASOPHILS # (AUTO) 0.04 x10^3/uL (0-0.1); BASOPHILS % (AUTO) 0 % (0-1); EOSINOPHILS # (AUTO) 0.22 x10^3/uL (0-0.4); EOSINOPHILS % (AUTO) 2 % (1-7); LYMPHOCYTES % (AUTO) 20 % (22-44); MD NO; MEAN CORPUSCULAR HEMOGLOBIN 31.6 pg (27.5-34.5); MEAN CORPUSCULAR HGB CONC 33.9 g/dL (33.2-36.2); MEAN PLATELET VOLUME 7.7 fL (7.4-10.4); MONOCYTES # (AUTO) 1.11 x10^3/uL (0.2-0.8); MONOCYTES % (AUTO) 11 % (2-9); NEUTROPHILS # (AUTO) 6.49 x10^3/uL (1.8-6.8); NEUTROPHILS % (AUTO) 67 % (42-75); PLATELET COUNT 206 x10^3/uL (130-400); RED BLOOD COUNT 4.62 x10^6/uL (4.38-5.82); RED CELL DISTRIBUTION WIDTH 13.1 % (9.4-14.8)
--- NOTE | 2019-09-28 13:37 | NUR ---
Medications provided per EMAR. NADN. No other needs expressed. Pt pending lab results.
[2019-09-28 13:42] LABS: ALBUMIN 4.1 g/dL (3.4-5.0); ANION GAP 7 mmol/L (5-15); CALCIUM 8.6 mg/dL (8.5-10.1); CHLORIDE 104 mmol/L (98-107); CREATININE 0.74 mg/dL (0.7-1.3)
--- NOTE | 2019-09-28 14:35 | NUR ---
LUNCH RN: PT GIVEN HAM SANDWICH FROM [employer]FFEE [employer] UPON DC
== END 2019-09-28 14:36 | disposition home or self-care (01) ==
LOC: ED 13:35
DX: G40.309 Generalized idiopathic epilepsy and epileptic syndromes, not intractable, without status epilepticus (principal); R42 Dizziness and giddiness; F10.10 Alcohol abuse, uncomplicated; Z72.9 Problem related to lifestyle, unspecified; Y90.0 Blood alcohol level of less than 20 mg/100 ml
CPT/HCPCS: 36415; 80048; 82040; 85025; 93005; 99284

== ENCOUNTER 2019-09-30 10:36 | Emergency (ER) | payer MEDICAID ==
[~2019-09-30] VITALS: Ht 172.7 cm; Wt 83.5 kg
[2019-09-30] MEDS ORDERED: LEVETIRACETAM 500 MG TABLET PO ONE (11:00)
[2019-09-30] MEDS ORDERED: LEVETIRACETAM 500 MG TABLET ONE (11:22)
[2019-09-30 11:24] VITALS: BP 124/73
== END 2019-09-30 12:20 | disposition home or self-care (01) ==
LOC: ED 11:45
DX: G40.909 Epilepsy, unspecified, not intractable, without status epilepticus (principal); R42 Dizziness and giddiness; R51 Headache; I10 Essential (primary) hypertension; M10.9 Gout, unspecified; J44.9 Chronic obstructive pulmonary disease, unspecified; F17.200 Nicotine dependence, unspecified, uncomplicated
CPT/HCPCS: 99283

== ENCOUNTER 2019-10-03 14:41 | Emergency (ER) | payer MEDICAID ==
[~2019-10-03] VITALS: Ht 172.7 cm; Wt 81.2 kg
[2019-10-03] MEDS ORDERED: PROMETHAZINE 25 MG/ML, 1ML ONE (15:39)
[2019-10-03] MEDS ORDERED: KETOROLAC 60 MG/2 ML ONE (15:40)
[2019-10-03 15:53] LABS: ALBUMIN 3.7 g/dL (3.4-5.0); ANION GAP 6 mmol/L (5-15); CALCIUM 8.8 mg/dL (8.5-10.1); CHLORIDE 106 mmol/L (98-107); CREATININE 0.87 mg/dL (0.7-1.3)
[2019-10-03] MEDS ORDERED: PROMETHAZINE 25 MG/ML, 1ML IM ONE (16:00)
[2019-10-03] MEDS ORDERED: KETOROLAC 30 MG/1 ML IM ONE (16:00)
[2019-10-03 18:44] VITALS: BP 124/74
== END 2019-10-03 18:58 | disposition home or self-care (01) ==
LOC: ED 18:05
DX: G40.319 Generalized idiopathic epilepsy and epileptic syndromes, intractable, without status epilepticus (principal); R79.1 Abnormal coagulation profile; I10 Essential (primary) hypertension; J44.9 Chronic obstructive pulmonary disease, unspecified
CPT/HCPCS: 36415; 71045; 80048; 82040; 99284; J1885; J2550

== ENCOUNTER 2019-10-04 20:54 | Emergency (ER) | payer MEDICAID ==
[~2019-10-04] VITALS: Ht 172.7 cm; Wt 82.1 kg
[2019-10-04 20:58] VITALS: BP 138/88
[2019-10-04] MEDS ORDERED: IBUPROFEN 200 MG TABLET PO ONE (21:30)
[2019-10-04] MEDS ORDERED: IBUPROFEN 600 MG TABLET ONE (21:32)
[2019-10-04] MEDS ORDERED: ALBUTEROL SULFATE 2.5 MG/3 ML ONE (22:04)
--- NOTE | 2019-10-04 22:13 | NUR ---
pt d/c with d/c summary. all questions answered. pt ambulates to registration desk with steady gait for d/c home. pt denies any other needs pertaining to this visit.
== END 2019-10-04 22:31 | disposition home or self-care (01) ==
LOC: ED 21:55
DX: G89.11 Acute pain due to trauma (principal); M25.561 Pain in right knee; X58.XXXA Exposure to other specified factors, initial encounter; Y93.01 Activity, walking, marching and hiking; Y92.410 Unspecified street and highway as the place of occurrence of the external cause; Y99.8 Other external cause status
CPT/HCPCS: 99283

== ENCOUNTER 2019-10-06 18:32 | Emergency (ER) | payer MEDICAID ==
[~2019-10-06] VITALS: Ht 172.7 cm; Wt 83.0 kg
[2019-10-06 18:46] VITALS: BP 123/74
[2019-10-06] MEDS ORDERED: LORazepam 1MG TABLET ONE (18:50)
[2019-10-06 18:53] LABS: BASOPHILS # (AUTO) 0.07 x10^3/uL (0-0.1); BASOPHILS % (AUTO) 1 % (0-1); EOSINOPHILS # (AUTO) 0.15 x10^3/uL (0-0.4); EOSINOPHILS % (AUTO) 2 % (1-7); LYMPHOCYTES # (AUTO) 1.62 x10^3/uL (1-3.4); LYMPHOCYTES % (AUTO) 18 % (22-44); MD NO; MEAN CORPUSCULAR HEMOGLOBIN 31.6 pg (27.5-34.5); MEAN CORPUSCULAR HGB CONC 34.1 g/dL (33.2-36.2); MEAN CORPUSCULAR VOLUME 92.9 fL (81-97); MEAN PLATELET VOLUME 7.6 fL (7.4-10.4); MONOCYTES # (AUTO) 0.92 x10^3/uL (0.2-0.8); MONOCYTES % (AUTO) 10 % (2-9); NEUTROPHILS # (AUTO) 6.05 x10^3/uL (1.8-6.8); NEUTROPHILS % (AUTO) 69 % (42-75); PLATELET COUNT 210 x10^3/uL (130-400); RED BLOOD COUNT 4.51 x10^6/uL (4.38-5.82); RED CELL DISTRIBUTION WIDTH 13.2 % (9.4-14.8)
[2019-10-06] MEDS ORDERED: LEVETIRACETAM 500 MG in SODIUM CHLORIDE 0.9% 100 ML IV ONE (19:00)
[2019-10-06] MEDS ORDERED: LORazepam 1MG TABLET PO ONE (19:00)
[2019-10-06] MEDS ORDERED: SODIUM CHLORIDE FLUSH 10ML SYR IVF ONE (19:00)
[2019-10-06 19:01] LABS: ALBUMIN 3.7 g/dL (3.4-5.0); ANION GAP 6 mmol/L (5-15); CALCIUM 8.7 mg/dL (8.5-10.1); CHLORIDE 107 mmol/L (98-107); CREATININE 0.82 mg/dL (0.7-1.3)
--- NOTE | 2019-10-06 19:02 | NUR ---
PT BIB BY ALTHEA FOR A UNWITNESSED SZ. HE REPORTS HAVING ONE AT HIS HOUSE [facility]. HE THEN CALLED 911. HE WAS TREATED HERE A FEW DAYS AGO. WAS SENT HOME WITH NURIS. BLANKET PROVIDED. SEE MAR FOR INTERVENTIONS
== END 2019-10-06 19:59 | disposition home or self-care (01) ==
LOC: ED 18:43
DX: G40.309 Generalized idiopathic epilepsy and epileptic syndromes, not intractable, without status epilepticus (principal); I10 Essential (primary) hypertension; H44.9 Unspecified disorder of globe
CPT/HCPCS: 36415; 80048; 82040; 85025; 96365; 99284; J1953

== ENCOUNTER 2019-10-12 18:04 | Emergency (ER) | payer MEDICAID ==
[~2019-10-12] VITALS: Ht 172.7 cm; Wt 86.0 kg
[2019-10-12] MEDS ORDERED: ACETAMINOPHEN 500 MG TABLET ONE (18:23)
[2019-10-12] MEDS ORDERED: LEVETIRACETAM 500 MG TABLET ONE (18:23)
[2019-10-12 18:30] LABS: BASOPHILS # (AUTO) 0.05 x10^3/uL (0-0.1); BASOPHILS % (AUTO) 1 % (0-1); EOSINOPHILS # (AUTO) 0.17 x10^3/uL (0-0.4); EOSINOPHILS % (AUTO) 3 % (1-7); LYMPHOCYTES # (AUTO) 2.34 x10^3/uL (1-3.4); LYMPHOCYTES % (AUTO) 34 % (22-44); MD NO; MEAN CORPUSCULAR HEMOGLOBIN 31.9 pg (27.5-34.5); MEAN CORPUSCULAR HGB CONC 34.2 g/dL (33.2-36.2); MEAN CORPUSCULAR VOLUME 93.3 fL (81-97); MEAN PLATELET VOLUME 7.9 fL (7.4-10.4); MONOCYTES # (AUTO) 0.56 x10^3/uL (0.2-0.8); MONOCYTES % (AUTO) 8 % (2-9); NEUTROPHILS # (AUTO) 3.83 x10^3/uL (1.8-6.8); NEUTROPHILS % (AUTO) 55 % (42-75); PLATELET COUNT 256 x10^3/uL (130-400); RED BLOOD COUNT 4.58 x10^6/uL (4.38-5.82); RED CELL DISTRIBUTION WIDTH 13.2 % (9.4-14.8)
[2019-10-12] MEDS ORDERED: LEVETIRACETAM 500 MG TABLET PO ONE (18:30)
[2019-10-12] MEDS ORDERED: ACETAMINOPHEN 500 MG TABLET PO ONE (18:30)
[2019-10-12 18:34] LABS: ALBUMIN 3.2 g/dL (3.4-5.0); ANION GAP 7 mmol/L (5-15); CALCIUM 7.6 mg/dL (8.5-10.1); CHLORIDE 107 mmol/L (98-107); CREATININE 0.73 mg/dL (0.7-1.3)
[2019-10-12 18:51] VITALS: BP 113/67
== END 2019-10-12 19:18 | disposition home or self-care (01) ==
LOC: ED 19:07
DX: G40.409 Other generalized epilepsy and epileptic syndromes, not intractable, without status epilepticus (principal); I10 Essential (primary) hypertension; J45.909 Unspecified asthma, uncomplicated; F17.200 Nicotine dependence, unspecified, uncomplicated; I21.9 Acute myocardial infarction, unspecified
CPT/HCPCS: 36415; 80048; 80307; 82040; 85025; 93005; 99284

== ENCOUNTER 2019-10-24 08:06 | Emergency (ER) | payer MEDICAID ==
[~2019-10-24] VITALS: Ht 172.7 cm; Wt 80.1 kg
[2019-10-24 08:09] VITALS: BP 120/77
[2019-10-24] MEDS ORDERED: LEVETIRACETAM 500 MG TABLET ONE (08:30)
[2019-10-24] MEDS ORDERED: LEVETIRACETAM 500 MG TABLET PO SCH (08:30)
[2019-10-24] MEDS ORDERED: LEVE100020 PO (08:35)
== END 2019-10-24 09:06 ==
LOC: ED 08:41
DX: G40.419 Other generalized epilepsy and epileptic syndromes, intractable, without status epilepticus (principal); I10 Essential (primary) hypertension; J44.9 Chronic obstructive pulmonary disease, unspecified; F17.200 Nicotine dependence, unspecified, uncomplicated
CPT/HCPCS: 99283

== ENCOUNTER 2019-10-27 16:54 | Emergency (ER) | payer MEDICAID ==
[~2019-10-27] VITALS: Ht 172.7 cm; Wt 79.6 kg
--- NOTE | 2019-10-27 17:00 | NUR ---
PT AMBULATED TO ROOM W/ A STEADY GAIT.
--- NOTE | 2019-10-27 17:02 | NUR ---
THIS IS A 54 YO M W/ C/O X2 SEIZURES TODAY. PT REPORTS HE TAKES KEPPRA 1000MG BID. PT IS CONVERSING W/O DIFFICULTY. RESP EVEN AND UNLABORED. NADN. PT AMBULATED W/ A STEADY GAIT. PT DENIES CP/SOB. PT CONNECTED TO MONITORING. PT RESTING ON Cinario W/ CALL LIGHT IN REACH. AWAITING ED EVAL.
--- NOTE | 2019-10-27 17:26 | NUR ---
LAB IN ROOM.
--- NOTE | 2019-10-27 17:35 | NUR ---
SEIZURE PRECAUTIONS IN PLACE.
[2019-10-27 17:41] LABS: BASOPHILS # (AUTO) 0.13 x10^3/uL (0-0.1); BASOPHILS % (AUTO) 2 % (0-1); EOSINOPHILS # (AUTO) 0.21 x10^3/uL (0-0.4); EOSINOPHILS % (AUTO) 3 % (1-7); LYMPHOCYTES % (AUTO) 33 % (22-44); MD NO; MEAN CORPUSCULAR HEMOGLOBIN 32.5 pg (27.5-34.5); MEAN CORPUSCULAR HGB CONC 34.8 g/dL (33.2-36.2); MEAN CORPUSCULAR VOLUME 93.3 fL (81-97); MONOCYTES # (AUTO) 0.74 x10^3/uL (0.2-0.8); MONOCYTES % (AUTO) 9 % (2-9); NEUTROPHILS # (AUTO) 4.58 x10^3/uL (1.8-6.8); NEUTROPHILS % (AUTO) 54 % (42-75); PLATELET COUNT 240 x10^3/uL (130-400); RED BLOOD COUNT 4.61 x10^6/uL (4.38-5.82); RED CELL DISTRIBUTION WIDTH 13.5 % (9.4-14.8)
[2019-10-27 17:50] LABS: ALBUMIN 3.4 g/dL (3.4-5.0); ANION GAP 11 mmol/L (5-15); CALCIUM 8.2 mg/dL (8.5-10.1); CHLORIDE 106 mmol/L (98-107); CREATININE 0.77 mg/dL (0.7-1.3)
[2019-10-27 17:57] LABS: ALKALINE PHOSPHATASE 86 U/L (45-117); BILIRUBIN,TOTAL 0.5 mg/dL (0.2-1.0)
[2019-10-27 18:09] LABS: TOTAL PROTEIN 7.3 g/dL (6.4-8.2)
--- NOTE | 2019-10-27 18:16 | NUR ---
PT NOW REPORTING SI. STATES IF HE GOES HOME HE WILL HANG HIMESELF FROM A TREE, STATES HE ALREADY HAS NOOSE MADE. PT REPORTS HE HAS BEEN WALKING IN FRONT OF CARS RECENTLY, TRYING TO GET HIT. UPDATED. STATES SHE WILL GO SPEAK W/ PT.
[2019-10-27 18:26] LABS: ALANINE AMINOTRANSFERASE 59 U/L (12-78)
[2019-10-27 18:58] VITALS: BP 112/57
[2019-10-27 19:08] LABS: SALICYLATE LEVEL 2.4 mg/dL (2.8-20.0)
--- NOTE | 2019-10-27 19:08 | NUR ---
PERSONAL BELONGINGS REMOVED AND PLACED IN LOCKER. GARAGE DOORS PULLED DOWN, SITTER AT BEDSIDE.
--- NOTE | 2019-10-27 19:15 | NUR ---
ED DIET TRAY ORDERED.
--- NOTE | 2019-10-27 19:42 | NUR ---
4 BELONGINGS BAGS RETURNED TO PATIENT.
--- NOTE | 2019-10-27 19:49 | NUR ---
PT VERBALIZED UNDERSTANDING OF DC INSTRUCTIONS, PROVIDED BUS PASS. AMBULATED TO DC DESK W/ A STEADY GAIT.
== END 2019-10-27 20:09 | disposition home or self-care (01) ==
LOC: ED 17:16
DX: G40.309 Generalized idiopathic epilepsy and epileptic syndromes, not intractable, without status epilepticus (principal); I25.2 Old myocardial infarction; I10 Essential (primary) hypertension; J44.9 Chronic obstructive pulmonary disease, unspecified; M10.9 Gout, unspecified; F17.200 Nicotine dependence, unspecified, uncomplicated
CPT/HCPCS: 36415; 80053; 80177; 80307; 85025; 93005; 99284

== ENCOUNTER 2019-10-28 13:45 | Emergency (ER) | payer MEDICAID ==
[~2019-10-28] VITALS: Ht 172.7 cm; Wt 80.1 kg
[2019-10-28 14:38] LABS: BASOPHILS # (AUTO) 0.06 x10^3/uL (0-0.1); BASOPHILS % (AUTO) 1 % (0-1); EOSINOPHILS # (AUTO) 0.16 x10^3/uL (0-0.4); EOSINOPHILS % (AUTO) 2 % (1-7); LYMPHOCYTES # (AUTO) 2.31 x10^3/uL (1-3.4); LYMPHOCYTES % (AUTO) 32 % (22-44); MD NO; MEAN CORPUSCULAR HGB CONC 33.4 g/dL (33.2-36.2); MEAN CORPUSCULAR VOLUME 92.8 fL (81-97); MEAN PLATELET VOLUME 7.9 fL (7.4-10.4); MONOCYTES # (AUTO) 0.61 x10^3/uL (0.2-0.8); MONOCYTES % (AUTO) 8 % (2-9); NEUTROPHILS # (AUTO) 4.18 x10^3/uL (1.8-6.8); NEUTROPHILS % (AUTO) 57 % (42-75); PLATELET COUNT 227 x10^3/uL (130-400); RED BLOOD COUNT 4.77 x10^6/uL (4.38-5.82); RED CELL DISTRIBUTION WIDTH 13.7 % (9.4-14.8)
[2019-10-28 14:50] LABS: ALBUMIN 3.7 g/dL (3.4-5.0); ANION GAP 4 mmol/L (5-15); CHLORIDE 108 mmol/L (98-107); CREATININE 0.83 mg/dL (0.7-1.3)
[2019-10-28 14:53] LABS: TROPONIN I < 0.015 ng/mL (0.000-0.045)
--- NOTE | 2019-10-28 15:01 | NUR ---
LATE ENTRY FOR 1455 PT IN LOBBY YELLING AT THIS RN. I EXPLAINED TO PT THAT WE ARE TRYING TO GET ROOMS CLEANED. PT CONTINUES TO YELL AT STAFF
--- NOTE | 2019-10-28 15:02 | NUR ---
PT TAKEN TO ROOM AT THIS TIME.
--- NOTE | 2019-10-28 15:15 | NUR ---
FIRST CONTACT WITH PT. PT STATES "IM HERE PRIMARILY FOR MY SEIZURES, HAD ONE TODAY AND 2 YESTERDAY, I'M TAKING MY KEPPRA AND THEY'RE STILL HAPPENING. THEN FOR 35 YEARS I CAN'T BREATH, I SMOKE, I JUST LATELY CANNOT CATCH MY BREATH AND I GET PAINS IN MY CHEST." DENIES COUGH, FEVERS, TRAVEL, N/V/D. EKG COMPLETED IN TRIAGE. PT'S AOX4. RESPS EVEN AND UNLABORED. BP/SPO2 MONITORS IN PLACE. CALL LIGHT WITHIN REACH. SIEZURE PADS PLACED AT THIS TIME.
[2019-10-28 15:17] VITALS: BP 112/72
[2019-10-28] MEDS ORDERED: LORazepam 1MG TABLET ONE (16:00)
[2019-10-28] MEDS ORDERED: LORazepam 1MG TABLET PO ONE (16:00)
--- NOTE | 2019-10-28 16:03 | NUR ---
PT MEDICATED PER EMAR. PT TOLERATED WELL.
--- NOTE | 2019-10-28 16:11 | NUR ---
Patient given discharge instructions and they have confirmed that they understand the instructions. Patient ambulatory with steady gait. NO TERMINAL CLEAN PER EDMD. SLACK COOPER NOTIFIED.
== END 2019-10-28 16:10 | disposition home or self-care (01) ==
LOC: ED 15:30
DX: J44.9 Chronic obstructive pulmonary disease, unspecified (principal); I10 Essential (primary) hypertension; G40.909 Epilepsy, unspecified, not intractable, without status epilepticus
CPT/HCPCS: 36415; 71045; 80048; 80177; 82040; 84484; 85025; 93005; 99285

== ENCOUNTER 2019-11-06 20:20 | Emergency (ER) | payer MEDICAID ==
[~2019-11-06] VITALS: Ht 172.7 cm; Wt 83.0 kg
[2019-11-06 20:23] VITALS: BP 105/60
--- NOTE | 2019-11-06 20:28 | NUR ---
ELIJAHA PT CALLED TO REPORT HAVING 3 SEIZURES IN THE LAST 24HRS, NO WITNESSED SEIZURES, PT DENIES TRAUMA.
[2019-11-06] MEDS ORDERED: LEVETIRACETAM 500 MG TABLET PO ONE (20:30)
[2019-11-06] MEDS ORDERED: LEVETIRACETAM 500 MG TABLET ONE (20:47)
--- NOTE | 2019-11-06 20:49 | NUR ---
MEDICATED PER MAR, PT IN NO ACUTE DISTRESS. CALL LIGHT PLACED WITHIN REACH.
[2019-11-06 20:51] LABS: BASOPHILS # (AUTO) 0.04 x10^3/uL (0-0.1); BASOPHILS % (AUTO) 0 % (0-1); EOSINOPHILS # (AUTO) 0.25 x10^3/uL (0-0.4); EOSINOPHILS % (AUTO) 3 % (1-7); LYMPHOCYTES # (AUTO) 2.12 x10^3/uL (1-3.4); LYMPHOCYTES % (AUTO) 24 % (22-44); MD NO; MEAN CORPUSCULAR HEMOGLOBIN 31.3 pg (27.5-34.5); MEAN CORPUSCULAR HGB CONC 33.8 g/dL (33.2-36.2); MEAN CORPUSCULAR VOLUME 92.6 fL (81-97); MEAN PLATELET VOLUME 7.6 fL (7.4-10.4); MONOCYTES # (AUTO) 1.01 x10^3/uL (0.2-0.8); MONOCYTES % (AUTO) 11 % (2-9); NEUTROPHILS # (AUTO) 5.57 x10^3/uL (1.8-6.8); NEUTROPHILS % (AUTO) 62 % (42-75); PLATELET COUNT 249 x10^3/uL (130-400); RED BLOOD COUNT 4.38 x10^6/uL (4.38-5.82); RED CELL DISTRIBUTION WIDTH 13.6 % (9.4-14.8)
[2019-11-06] MEDS ORDERED: LEVE100020 PO (20:51)
[2019-11-06 21:02] LABS: ALBUMIN 3.7 g/dL (3.4-5.0); ANION GAP 6 mmol/L (5-15); CALCIUM 8.9 mg/dL (8.5-10.1); CHLORIDE 103 mmol/L (98-107); CREATININE 0.75 mg/dL (0.7-1.3)
== END 2019-11-06 21:37 | disposition home or self-care (01) ==
LOC: ED 20:39
DX: G40.909 Epilepsy, unspecified, not intractable, without status epilepticus (principal); F15.10 Other stimulant abuse, uncomplicated; R55 Syncope and collapse; J44.9 Chronic obstructive pulmonary disease, unspecified; I10 Essential (primary) hypertension; Z72.9 Problem related to lifestyle, unspecified
CPT/HCPCS: 36415; 80048; 82040; 85025; 93005; 99284

== ENCOUNTER 2019-11-17 14:53 | Emergency (ER) | payer MEDICAID ==
[~2019-11-17] VITALS: Ht 172.7 cm; Wt 81.0 kg
[2019-11-17 15:00] VITALS: BP 120/85
--- NOTE | 2019-11-17 15:11 | NUR ---
BIB [facility], PT WITH SEIZURE X3 TODAY. PT WITH HX OF SEIZURES, RECENT INCREASE IN KEPPRA DOSE, PER PT REPORT HAS NOT HELPED WITH SEIZURE ACTIVITY. PT REPORTS 1 SEIZURE YESTERDAY WELL ONE LAST WEEK PT CARD MONITOR, BP, CONT PULSE OX. ERMD IN TO EVAL PT
--- NOTE | 2019-11-17 17:07 | NUR ---
PT TOOK OFF ALL MONITORING EQUIPMENT. PT REFUSING TO REPLACE, PT WOULD LIKE TO LEAVE AMA
== END 2019-11-17 17:12 | disposition home or self-care (01) ==
LOC: ED 15:05
DX: G40.309 Generalized idiopathic epilepsy and epileptic syndromes, not intractable, without status epilepticus (principal); R51 Headache; J44.9 Chronic obstructive pulmonary disease, unspecified; F17.200 Nicotine dependence, unspecified, uncomplicated
CPT/HCPCS: 70450; 99284

== ENCOUNTER 2019-11-18 15:44 | Emergency (ER) | payer MEDICAID ==
[~2019-11-18] VITALS: Ht 172.7 cm; Wt 79.4 kg
[2019-11-18 15:50] VITALS: BP 123/86
--- NOTE | 2019-11-18 16:49 | NUR ---
SALES AND MARKETING DIRECTOR: PT LEFT AMA
[2019-11-19] MEDS ORDERED: OMEP20TA9 PO (14:49)
[2019-11-19] MEDS ORDERED: CARI3CAP PO (14:49)
[2019-11-19] MEDS ORDERED: TRAZ-175 PO (14:49)
[2019-11-19] MEDS ORDERED: keppra PO (14:49)
[2019-11-19] MEDS ORDERED: GABA-826 PO (14:49)
[2019-11-19] MEDS ORDERED: ALBUTEROL (14:49)
== END 2019-11-18 16:51 | disposition left against medical advice (07) ==
LOC: ED 16:45
DX: R56.9 Unspecified convulsions (principal); Z53.21 Procedure and treatment not carried out due to patient leaving prior to being seen by health care provider
CPT/HCPCS: 93005

== ENCOUNTER 2019-11-19 14:28 | Emergency (ER) | payer MEDICAID ==
[~2019-11-19] VITALS: Ht 172.7 cm; Wt 72.7 kg
[2019-11-19 14:34] VITALS: BP 119/82
[2019-11-19] MEDS ORDERED: TRAZ-175 PO (14:49)
[2019-11-19] MEDS ORDERED: keppra PO (14:49)
[2019-11-19] MEDS ORDERED: GABA-826 PO (14:49)
[2019-11-19] MEDS ORDERED: OMEP20TA9 PO (14:49)
[2019-11-19] MEDS ORDERED: ALBUTEROL (14:49)
[2019-11-19] MEDS ORDERED: CARI3CAP PO (14:49)
--- NOTE | 2019-11-19 14:49 | NUR ---
LATE NOTE ENTRY FOR 1443: Pt presents to ED from [facility] after pt walked to [facility] to use restroom, then asked the manager retail store to call 911 because the patient claims he had a seizure "one hour ago". Pt denies witness to seizure. Pt deines head trauma, oral trauma, or loss of bowel or bladder control. Pt amublates with EMS to room with steady gait and balance. Pt provided urine cup as pt requested to use restroom. Pt resting on gurney connected to monitoring specialist, NIBP cuff, and continous pulse ox monitor. Call light within reach. Seizure precautions in place. NADN, No needs expressed.
[2019-11-19] MEDS ORDERED: VALPROIC ACID 250 MG CAPSULE PO ONE (15:00)
--- NOTE | 2019-11-19 15:02 | NUR ---
Sent yellow slip to request medication per EMAR from pharmacy.
--- NOTE | 2019-11-19 15:24 | NUR ---
Called pharmacy to follow up on medication request. Per pharmacy, "the pharmacist is still working on it right now".
--- NOTE | 2019-11-19 15:40 | NUR ---
Patient given discharge instructions and they have confirmed that they understand the instructions. Patient ambulatory with steady gait. Pt left with d/c paperwork and all personal belongings.
== END 2019-11-19 15:43 | disposition home or self-care (01) ==
LOC: ED 15:11
DX: R56.9 Unspecified convulsions (principal); I10 Essential (primary) hypertension; J44.9 Chronic obstructive pulmonary disease, unspecified; F17.200 Nicotine dependence, unspecified, uncomplicated; M10.9 Gout, unspecified
CPT/HCPCS: 99283

== ENCOUNTER 2019-12-06 08:47 | Emergency (ER) | payer MEDICAID ==
[~2019-12-06] VITALS: Ht 172.7 cm; Wt 82.0 kg
[~2019-12-06 08:47] MED LIST changes: +ALBUTEROL; +CARI3CAP PO; +GABA-826 PO; +OMEP20TA9 PO; +TRAZ-175 PO; +keppra PO
--- NOTE | 2019-12-06 09:06 | NUR ---
PT BIB [facility] WITH C/O FEELING DIZZY S/P REPORTED SEIZURE PER PT, NO POST DICTAL NOTED. PT THEN STATES TO EMS HE HAS BEEN HAVING CP AND SOB. PT DENIES BOTH CP AND SOB TO THIS RN. PT TO ALL MONTIORS.
[2019-12-06 09:51] LABS: BASOPHILS # (AUTO) 0.04 x10^3/uL (0-0.1); BASOPHILS % (AUTO) 0 % (0-1); EOSINOPHILS # (AUTO) 0.18 x10^3/uL (0-0.4); EOSINOPHILS % (AUTO) 2 % (1-7); LYMPHOCYTES # (AUTO) 1.79 x10^3/uL (1-3.4); LYMPHOCYTES % (AUTO) 18 % (22-44); MD NO; MEAN CORPUSCULAR HEMOGLOBIN 30.8 pg (27.5-34.5); MEAN CORPUSCULAR VOLUME 93.3 fL (81-97); MEAN PLATELET VOLUME 7.8 fL (7.4-10.4); MONOCYTES # (AUTO) 0.65 x10^3/uL (0.2-0.8); MONOCYTES % (AUTO) 7 % (2-9); NEUTROPHILS # (AUTO) 7.39 x10^3/uL (1.8-6.8); NEUTROPHILS % (AUTO) 74 % (42-75); PLATELET COUNT 245 x10^3/uL (130-400); RED BLOOD COUNT 4.85 x10^6/uL (4.38-5.82)
--- NOTE | 2019-12-06 09:56 | NUR ---
ATTEMPTED TO OBTAIN UA FROM PT, PT STATES HE IS UNABLE TO VOID AT THIS TIME, WILL ATTEMPT AT LATER TIME
[2019-12-06 10:02] LABS: ALANINE AMINOTRANSFERASE 35 U/L (12-78); ALBUMIN 3.6 g/dL (3.4-5.0); ANION GAP 3 mmol/L (5-15); CALCIUM 8.8 mg/dL (8.5-10.1); CHLORIDE 106 mmol/L (98-107); CREATININE 0.73 mg/dL (0.7-1.3)
[2019-12-06 10:06] LABS: ALKALINE PHOSPHATASE 70 U/L (45-117); BILIRUBIN,TOTAL 0.9 mg/dL (0.2-1.0); TOTAL PROTEIN 7.9 g/dL (6.4-8.2); TROPONIN I < 0.015 ng/mL (0.000-0.045)
[2019-12-06 10:32] VITALS: BP 105/70
[2019-12-06] MEDS ORDERED: SODIUM CHLORIDE 0.9% 1,000ML IVBOLUS ONE (11:00)
--- NOTE | 2019-12-06 11:18 | NUR ---
ATTEMPT IV ACCESS X 5. UNABLE TO ACHIEVE ACCESS, ERPROVIDER UPDATED.
== END 2019-12-06 11:42 | disposition home or self-care (01) ==
LOC: ED 09:08
DX: H81.399 Other peripheral vertigo, unspecified ear (principal); R07.89 Other chest pain; G40.909 Epilepsy, unspecified, not intractable, without status epilepticus; E86.0 Dehydration; R94.31 Abnormal electrocardiogram [ECG] [EKG]; I25.2 Old myocardial infarction
CPT/HCPCS: 36415; 71045; 80053; 83690; 84484; 85025; 93005; 99285

== ENCOUNTER 2019-12-10 12:48 | Emergency (ER) | payer MEDICAID ==
[~2019-12-10] VITALS: Ht 172.7 cm; Wt 70.5 kg
[2019-12-10 12:53] VITALS: BP 103/63
--- NOTE | 2019-12-10 13:01 | NUR ---
THIS IS A 54 YO M W/ C/O SEIZURE TODAY IN WHICH HE LOC FOR 5 MINUTES. PT REPORTS NOT TAKING HIS PRESCRIBED KEPPRA TODAY BECAUSE HE IS OUT. PT A&OX4, CONVERSING IN FULL SENTENCES, NOT POSTICTAL AT THIS TIME. PT RESTING ON GURNEY W/ CALL LIGHT IN REACH, SIDE RAILS UPX2, SEIZURE PRECAUTIONS IN PLACE. AWAITING ED EVAL.
[2019-12-10] MEDS ORDERED: LEVETIRACETAM 500 MG TABLET ONE (13:38)
[2019-12-10] MEDS ORDERED: LEVETIRACETAM 500 MG TABLET PO ONE (14:00)
--- NOTE | 2019-12-10 14:32 | NUR ---
TASK RN: PT DC HOME IN A STABLE CONDITION. DC INSTRUCTIONS DISCUSSED WITH PT. PT VERBALIZED UNDERSTANDING. NO FURTHER QUESTIONS OR CONCERNS EXPRESSED AT THAT TIME. PT AMBULATED OUT OF ED WITH A STEADY GAIT.
== END 2019-12-10 14:34 | disposition home or self-care (01) ==
LOC: ED 13:00
DX: G40.309 Generalized idiopathic epilepsy and epileptic syndromes, not intractable, without status epilepticus (principal); F10.10 Alcohol abuse, uncomplicated; I10 Essential (primary) hypertension; J44.9 Chronic obstructive pulmonary disease, unspecified; Z72.9 Problem related to lifestyle, unspecified; Y90.0 Blood alcohol level of less than 20 mg/100 ml
CPT/HCPCS: 99283

== ENCOUNTER 2019-12-10 17:08 | Emergency (ER) | payer MEDICAID ==
[~2019-12-10] VITALS: Ht 172.7 cm; Wt 81.8 kg
--- NOTE | 2019-12-10 17:18 | NUR ---
Pt brought in by ALTHEA due to "pain with breathing". Pt was seen here earlier and DC'd. Pt denies any COVID symptoms. Placed Pt on monitor.
--- NOTE | 2019-12-10 17:30 | NUR ---
Bedside report received from Leah WILLETT. Pt resting in gurney, NAD, RESP WNL, call light on lap, denies additional needs at this time. FCS no SOB, MAEx4. P/W/D. AMARILIS.
[2019-12-10 17:55] LABS: BASOPHILS # (AUTO) 0.04 x10^3/uL (0-0.1); BASOPHILS % (AUTO) 1 % (0-1); EOSINOPHILS # (AUTO) 0.17 x10^3/uL (0-0.4); EOSINOPHILS % (AUTO) 3 % (1-7); LYMPHOCYTES # (AUTO) 2.07 x10^3/uL (1-3.4); LYMPHOCYTES % (AUTO) 31 % (22-44); MD NO; MEAN CORPUSCULAR HEMOGLOBIN 31.1 pg (27.5-34.5); MEAN CORPUSCULAR HGB CONC 33.5 g/dL (33.2-36.2); MEAN CORPUSCULAR VOLUME 92.8 fL (81-97); MEAN PLATELET VOLUME 7.7 fL (7.4-10.4); MONOCYTES % (AUTO) 7 % (2-9); NEUTROPHILS # (AUTO) 3.97 x10^3/uL (1.8-6.8); NEUTROPHILS % (AUTO) 59 % (42-75); PLATELET COUNT 248 x10^3/uL (130-400); RED BLOOD COUNT 4.62 x10^6/uL (4.38-5.82); RED CELL DISTRIBUTION WIDTH 13.6 % (9.4-14.8)
[2019-12-10 18:04] LABS: ALBUMIN 3.4 g/dL (3.4-5.0); ANION GAP 4 mmol/L (5-15); CALCIUM 8.7 mg/dL (8.5-10.1); CHLORIDE 110 mmol/L (98-107); CREATININE 0.89 mg/dL (0.7-1.3)
[2019-12-10 18:07] LABS: TROPONIN I < 0.015 ng/mL (0.000-0.045)
[2019-12-10 18:43] VITALS: BP 116/78
--- NOTE | 2019-12-10 18:44 | NUR ---
Patient/Caregiver given discharge instructions and they have confirmed that they understand the instructions. Patient ambulatory with steady gait. NAD, P/W/D, RESP WNL, VSS, Denies additional questions at this time.
== END 2019-12-10 18:46 | disposition home or self-care (01) ==
LOC: ED 17:40
DX: R07.89 Other chest pain (principal); F17.210 Nicotine dependence, cigarettes, uncomplicated; Z72.9 Problem related to lifestyle, unspecified; R00.0 Tachycardia, unspecified; I10 Essential (primary) hypertension; J44.9 Chronic obstructive pulmonary disease, unspecified; G40.909 Epilepsy, unspecified, not intractable, without status epilepticus
CPT/HCPCS: 36415; 71045; 80048; 82040; 84484; 85025; 93005; 99406

== ENCOUNTER 2020-01-04 07:12 | Emergency (ER) | payer MEDICAID ==
[~2020-01-04] VITALS: Ht 172.7 cm; Wt 77.2 kg
[2020-01-04 07:13] VITALS: BP 117/69
--- NOTE | 2020-01-04 07:23 | NUR ---
PT AMBULATED TO ROOM FROM TRIAGE W/ A STEADY GAIT.
[2020-01-04] MEDS ORDERED: NYSTATIN TOPICAL POWDER 15GM TP ONE (08:00)
--- NOTE | 2020-01-04 08:00 | NUR ---
PT HERE FOR BILAT FOOT BLISTERS AND MED REFILL
[2020-01-04] MEDS ORDERED: NEOSPORIN OINT. PKT 1 PACKET ONE (08:30)
== END 2020-01-04 09:55 | disposition home or self-care (01) ==
LOC: ED 07:34
DX: T69.022A Immersion foot, left foot, initial encounter (principal); T69.021A Immersion foot, right foot, initial encounter; R26.2 Difficulty in walking, not elsewhere classified; B35.3 Tinea pedis; I25.2 Old myocardial infarction; J44.9 Chronic obstructive pulmonary disease, unspecified; F17.200 Nicotine dependence, unspecified, uncomplicated; Z59.0 Homelessness; W93.8XXA Exposure to other excessive cold of man-made origin, initial encounter; Y93.89 Activity, other specified; Y92.488 Other paved roadways as the place of occurrence of the external cause; Y99.8 Other external cause status
CPT/HCPCS: 93005; 99283

== ENCOUNTER 2020-01-05 10:00 | Emergency (ER) | payer MEDICAID ==
[~2020-01-05] VITALS: Ht 172.7 cm; Wt 77.7 kg
[2020-01-05 10:05] VITALS: BP 127/82
--- NOTE | 2020-01-05 10:19 | NUR ---
FIRST CONTACT WITH PT. PT C/O BLISTERS ON BILAT FEET. PT'S AOX4. RESPS EVEN AND UNLABORED. PA AT BEDSIDE TO EVALUATE AT THIS TIME.
[2020-01-05] MEDS ORDERED: NEOSPORIN OINT. PKT 1 PACKET ONE (10:31)
--- NOTE | 2020-01-05 10:44 | NUR ---
EMT APPLIED DRESSING ON WOUND. PT TOLERATED WELL.
--- NOTE | 2020-01-05 10:53 | NUR ---
Patient given discharge instructions and they have confirmed that they understand the instructions. Patient ambulatory with steady gait.
== END 2020-01-05 10:54 | disposition home or self-care (01) ==
LOC: ED 10:11
DX: S90.822A Blister (nonthermal), left foot, initial encounter (principal); S90.821A Blister (nonthermal), right foot, initial encounter; X58.XXXA Exposure to other specified factors, initial encounter; Y93.89 Activity, other specified; Y92.89 Other specified places as the place of occurrence of the external cause; Y99.8 Other external cause status
CPT/HCPCS: 99282

== ENCOUNTER 2020-01-23 19:08 | Emergency (ER) | payer MEDICAID ==
[~2020-01-23] VITALS: Ht 172.7 cm; Wt 85.0 kg
[2020-01-23 19:16] VITALS: BP 132/87
[2020-01-23 19:48] LABS: ALBUMIN 3.8 g/dL (3.4-5.0); ANION GAP 8 mmol/L (5-15); CALCIUM 8.5 mg/dL (8.5-10.1); CHLORIDE 107 mmol/L (98-107)
[2020-01-23 19:51] LABS: ALANINE AMINOTRANSFERASE 55 U/L (12-78); ALKALINE PHOSPHATASE 83 U/L (45-117); BILIRUBIN,TOTAL 0.7 mg/dL (0.2-1.0); TOTAL PROTEIN 8.3 g/dL (6.4-8.2)
[2020-01-23 19:54] LABS: BASOPHILS # (AUTO) 0.04 x10^3/uL (0-0.1); BASOPHILS % (AUTO) 0 % (0-1); EOSINOPHILS # (AUTO) 0.18 x10^3/uL (0-0.4); EOSINOPHILS % (AUTO) 2 % (1-7); LYMPHOCYTES # (AUTO) 1.97 x10^3/uL (1-3.4); LYMPHOCYTES % (AUTO) 21 % (22-44); MD NO; MEAN CORPUSCULAR HEMOGLOBIN 31.1 pg (27.5-34.5); MEAN CORPUSCULAR VOLUME 91.7 fL (81-97); MEAN PLATELET VOLUME 8.3 fL (7.4-10.4); MONOCYTES % (AUTO) 11 % (2-9); NEUTROPHILS # (AUTO) 6.28 x10^3/uL (1.8-6.8); NEUTROPHILS % (AUTO) 66 % (42-75); PLATELET COUNT 217 x10^3/uL (130-400); RED BLOOD COUNT 4.47 x10^6/uL (4.38-5.82)
[2020-01-23] MEDS ORDERED: MECLIZINE CHEWABLE 25 MG TAB ONE (20:29)
[2020-01-23] MEDS ORDERED: MECLIZINE CHEWABLE 25 MG TAB PO ONE (20:30)
--- NOTE | 2020-01-23 20:31 | NUR ---
pt states that he feels dizzy, medicated and given water on request, no other complaints at this time.
--- NOTE | 2020-01-23 20:34 | NUR ---
pt negative for ETOH, states he took a "shot of something" then felt dizzy
--- NOTE | 2020-01-23 20:41 | NUR ---
pt ambulated to br with steady gait, no complaints at this time
--- NOTE | 2020-01-23 20:56 | NUR ---
pt states he feels better and wishes to leave, ambulates to dc desk with steady gait.
== END 2020-01-23 20:59 | disposition home or self-care (01) ==
LOC: ED 20:50
DX: R10.33 Periumbilical pain (principal); R10.32 Left lower quadrant pain; R50.9 Fever, unspecified; J44.9 Chronic obstructive pulmonary disease, unspecified; G40.909 Epilepsy, unspecified, not intractable, without status epilepticus
CPT/HCPCS: 36415; 80053; 80307; 83690; 85025; 99283

== ENCOUNTER 2020-01-25 18:54 | Emergency (ER) | payer MEDICAID ==
[~2020-01-25] VITALS: Ht 172.7 cm; Wt 80.4 kg
[2020-01-25 18:57] VITALS: BP 134/92
--- NOTE | 2020-01-25 19:03 | NUR ---
PT AMBULATES WELL TO ROOM FROM TRIAGE.
--- NOTE | 2020-01-25 19:14 | NUR ---
PT C/O FEELING LIKE HE'S HAVING HARD TIME BREATHING. PT SPEAKING IN FULL SENTANCES, NO RESP DISTRESS NOTED. PT STATES HIS MEDS WERE STOLLEN THE OTHER DAY. PT CONNECTED TO MONITORING. CALL LIGHT IN REACH.
== END 2020-01-25 20:04 | disposition home or self-care (01) ==
LOC: ED 19:49
DX: R42 Dizziness and giddiness (principal); R00.0 Tachycardia, unspecified; I10 Essential (primary) hypertension; J44.9 Chronic obstructive pulmonary disease, unspecified; G40.909 Epilepsy, unspecified, not intractable, without status epilepticus; M10.9 Gout, unspecified; F17.200 Nicotine dependence, unspecified, uncomplicated
CPT/HCPCS: 93005; 99283

== ENCOUNTER 2020-01-30 19:07 | Emergency (ER) | payer MEDICAID ==
[~2020-01-30] VITALS: Ht 172.7 cm; Wt 73.0 kg
--- NOTE | 2020-01-30 19:54 | NUR ---
assessment made. chart up for MD to see. patient c/o Seizure. no seizure like activity at this time. alert and oriented.
--- NOTE | 2020-01-30 20:25 | NUR ---
EKG done. X ray at bedside.
[2020-01-30 20:41] LABS: BASOPHILS # (AUTO) 0.05 x10^3/uL (0-0.1); BASOPHILS % (AUTO) 1 % (0-1); EOSINOPHILS % (AUTO) 1 % (1-7); LYMPHOCYTES # (AUTO) 1.88 x10^3/uL (1-3.4); LYMPHOCYTES % (AUTO) 25 % (22-44); MD NO; MEAN CORPUSCULAR HGB CONC 33.7 g/dL (33.2-36.2); MEAN CORPUSCULAR VOLUME 92.1 fL (81-97); MEAN PLATELET VOLUME 7.9 fL (7.4-10.4); MONOCYTES # (AUTO) 0.29 x10^3/uL (0.2-0.8); MONOCYTES % (AUTO) 4 % (2-9); NEUTROPHILS # (AUTO) 5.27 x10^3/uL (1.8-6.8); NEUTROPHILS % (AUTO) 69 % (42-75); PLATELET COUNT 270 x10^3/uL (130-400); RED BLOOD COUNT 4.72 x10^6/uL (4.38-5.82); RED CELL DISTRIBUTION WIDTH 14.4 % (9.4-14.8)
[2020-01-30 20:52] LABS: ALANINE AMINOTRANSFERASE 49 U/L (12-78); ALBUMIN 3.6 g/dL (3.4-5.0); ANION GAP 8 mmol/L (5-15); CALCIUM 8.9 mg/dL (8.5-10.1); CHLORIDE 113 mmol/L (98-107); CREATININE 1.03 mg/dL (0.7-1.3)
[2020-01-30 20:54] LABS: ALKALINE PHOSPHATASE 77 U/L (45-117); BILIRUBIN,TOTAL 0.3 mg/dL (0.2-1.0); TOTAL PROTEIN 8.2 g/dL (6.4-8.2)
--- NOTE | 2020-01-30 21:50 | NUR ---
all labs and X ray resulted. chart up for MD to re-eval.
[2020-01-30] MEDS ORDERED: AZITHROMYCIN 250 MG TABLET ONE (21:56)
[2020-01-30] MEDS ORDERED: THIAMINE 100MG TABLET ONE (21:56)
[2020-01-30] MEDS ORDERED: THIAMINE 100MG TABLET PO ONE (22:00)
[2020-01-30] MEDS ORDERED: AZITHROMYCIN 500 MG TABLET PO ONE (22:00)
--- NOTE | 2020-01-30 22:07 | NUR ---
re-evaluation done. patient discharged with prescription and instruction. verbalized understanding.
[2020-01-30 22:08] VITALS: BP 119/67
== END 2020-01-30 22:10 | disposition home or self-care (01) ==
LOC: ED 21:22
DX: G40.309 Generalized idiopathic epilepsy and epileptic syndromes, not intractable, without status epilepticus (principal); J15.9 Unspecified bacterial pneumonia; F10.220 Alcohol dependence with intoxication, uncomplicated; Z72.9 Problem related to lifestyle, unspecified; F17.210 Nicotine dependence, cigarettes, uncomplicated; I10 Essential (primary) hypertension; J44.9 Chronic obstructive pulmonary disease, unspecified; Y90.9 Presence of alcohol in blood, level not specified
CPT/HCPCS: 36415; 70450; 71045; 80053; 80307; 85025; 93005; 99285; 99406

== ENCOUNTER 2020-02-01 07:20 | Emergency (ER) | payer MEDICAID ==
[~2020-02-01] VITALS: Ht 172.7 cm; Wt 80.1 kg
[2020-02-01 07:24] VITALS: BP 129/87
[2020-02-01] MEDS ORDERED: LEVETIRACETAM 500 MG TABLET ONE (07:40)
--- NOTE | 2020-02-01 07:53 | NUR ---
PT MEDICATED PER MAR, GIVEN DC INTRUCTIONS WITH RX REFILL. PT THEN STATES TO THIS RN, "I NEED TO SPEAK TO THE DOCTOR, IM SUICIDAL" ASKED PT FOR MORE DETAILS REGARDING SITUATION. PT STATES "I LOST 150 DOLLARS, I HAVE NOTHING NOW, SOMETIMES ITS JUST EASIER TO END IT" "IF YOU DISCHARGE ME iM JUST GOING TO STEP IN FRONT OF A CAR" ERMD UPDATE ON PT STATUS, PT WITH KNOWN HX OF SI STATEMENTS. ADDITIONAL ORDERS RECIEVED
[2020-02-01] MEDS ORDERED: LEVETIRACETAM 500 MG TABLET PO ONE (08:00)
[2020-02-01] MEDS ORDERED: LORazepam 1MG TABLET PO ONE (08:00)
[2020-02-01 08:17] LABS: BASOPHILS % (AUTO) 1 % (0-1); EOSINOPHILS # (AUTO) 0.16 x10^3/uL (0-0.4); EOSINOPHILS % (AUTO) 2 % (1-7); LYMPHOCYTES # (AUTO) 2.43 x10^3/uL (1-3.4); LYMPHOCYTES % (AUTO) 33 % (22-44); MD NO; MEAN CORPUSCULAR HEMOGLOBIN 30.8 pg (27.5-34.5); MEAN CORPUSCULAR HGB CONC 33.1 g/dL (33.2-36.2); MEAN CORPUSCULAR VOLUME 93.3 fL (81-97); MEAN PLATELET VOLUME 7.3 fL (7.4-10.4); MONOCYTES # (AUTO) 0.65 x10^3/uL (0.2-0.8); MONOCYTES % (AUTO) 9 % (2-9); NEUTROPHILS # (AUTO) 4.08 x10^3/uL (1.8-6.8); NEUTROPHILS % (AUTO) 55 % (42-75); PLATELET COUNT 247 x10^3/uL (130-400); RED BLOOD COUNT 4.79 x10^6/uL (4.38-5.82); RED CELL DISTRIBUTION WIDTH 14.4 % (9.4-14.8)
[2020-02-01 08:26] LABS: ALBUMIN 3.6 g/dL (3.4-5.0); ANION GAP 8 mmol/L (5-15); CALCIUM 8.6 mg/dL (8.5-10.1); CHLORIDE 110 mmol/L (98-107); SALICYLATE LEVEL 3.3 mg/dL (2.8-20.0)
[2020-02-01 08:29] LABS: ALANINE AMINOTRANSFERASE 48 U/L (12-78); ALKALINE PHOSPHATASE 77 U/L (45-117); BILIRUBIN,TOTAL 0.3 mg/dL (0.2-1.0); CREATININE 0.71 mg/dL (0.7-1.3); TOTAL PROTEIN 7.9 g/dL (6.4-8.2)
--- NOTE | 2020-02-01 10:05 | NUR ---
UDS COLLECTED AND SENT TO LAB. PT RESTING COMFORTABLY AT THIS TIME ON THE GURNEY, STAS NOTED.
--- NOTE | 2020-02-01 10:10 | NUR ---
AWAITING PSYCH EVAL AT THIS TIME
[2020-02-01 10:23] LABS: MICROSCOPIC NOT IND
[2020-02-01 10:29] LABS: AMPHETAMINE SCREEN, URINE Negative (Negative); BARBITURATE SCREEN, URINE Negative (Negative); BENZODIAZEPINE SCREEN, URINE Negative (Negative); CANNABINOID SCREEN, URINE Positive (Negative); COCAINE SCREEN, URINE Negative (Negative); METHADONE SCREEN, URINE Negative (Negative); OPIATE SCREEN, URINE Negative (Negative)
--- NOTE | 2020-02-01 11:56 | NUR ---
REGINE SALGUERO IN TO [facility] PT
--- NOTE | 2020-02-01 12:24 | NUR ---
PLAN TO DC PT, PT WILL BE PROVIDED WITH CAB VOUCHER TO FACILITY FOR ETOH TREATMENT. PT DENIES SI AT THIS TIME. PT GIVEN MEAL TRAY, WILL UPDATE ERMD
== END 2020-02-01 13:01 | disposition home or self-care (01) ==
LOC: ED 07:55
DX: G40.509 Epileptic seizures related to external causes, not intractable, without status epilepticus (principal); T42.75XA Adverse effect of unspecified antiepileptic and sedative-hypnotic drugs, initial encounter; Y92.89 Other specified places as the place of occurrence of the external cause
CPT/HCPCS: 36415; 80053; 80307; 81003; 85025; 99283

== ENCOUNTER 2020-02-15 07:20 | Emergency (ER) | payer MEDICAID ==
[~2020-02-15] VITALS: Ht 172.7 cm; Wt 79.8 kg
--- NOTE | 2020-02-15 07:23 | NUR ---
NO ANSWER FROM TRIAGE
[2020-02-15 07:24] VITALS: BP 145/94
== END 2020-02-15 08:32 | disposition home or self-care (01) ==
LOC: ED 07:50
DX: G40.909 Epilepsy, unspecified, not intractable, without status epilepticus (principal); Z76.0 Encounter for issue of repeat prescription
CPT/HCPCS: 99283

== ENCOUNTER 2020-02-16 22:55 | Emergency (ER) | payer MEDICAID ==
[~2020-02-16] VITALS: Ht 177.8 cm; Wt 74.0 kg
[2020-02-16] MEDS ORDERED: ACETAMINOPHEN 500 MG TABLET ONE (23:18)
--- NOTE | 2020-02-16 23:27 | NUR ---
THIS PT WAS BIB [facility] AFTER A PASSER BY CALLED BECAUSE HE WAS SLEEPING ON THE SIDEWALK. PT IS AWAKE, CONVERSING WITH THIS RN. KNOW WHO HE IS, WHERE HE IS AND WHO THE PRESIDENT IS. PT CONTINUALLY MAKING STATEMENTS ABOUT WANTING TO HAVE A CIGERETTE AND A DRINK. PT TOLD THIS RN THAT HE'S HAD 8 24OZ BEERS TODAY. PT MAKING STATEMENTS THAT HE WANTS TO GO HOME. PT STATING "MY HEAD HURTS" GIVEN TYLENOL FOR THIS. PT PROVIDED WITH URINAL, ABLE TO USE WITHOUT HELP. SIDE RAILS UP X2, SEIZURE PADS IN PLACE. PT GIVEN WATER WHICH HE DRANK. LIGHTS OFF TO PROMOTE REST AND PT TOLD HE COULD SLEEP, PT EXCITED ABOUT THIS.
[2020-02-16] MEDS ORDERED: ACETAMINOPHEN 500 MG TABLET PO ONE (23:30)
--- NOTE | 2020-02-16 23:30 | NUR ---
PT CONNECTED TO 02 MONITOR.
--- NOTE | 2020-02-17 01:12 | NUR ---
PT SLEEPING. AROUSED TO VERBAL.
[2020-02-17 01:16] VITALS: BP 120/78
== END 2020-02-17 07:03 | disposition home or self-care (01) ==
LOC: ED 02-17 06:58
DX: F10.120 Alcohol abuse with intoxication, uncomplicated (principal); F12.10 Cannabis abuse, uncomplicated; F17.210 Nicotine dependence, cigarettes, uncomplicated; I10 Essential (primary) hypertension; J44.9 Chronic obstructive pulmonary disease, unspecified; Y90.9 Presence of alcohol in blood, level not specified
CPT/HCPCS: 99283; 99406

== ENCOUNTER 2020-02-24 19:09 | Emergency (ER) | payer MEDICAID ==
--- NOTE | 2020-02-24 19:18 | NUR ---
ASSISTING PRIMARY RN WITH TRIAGE. PT WAS ASKED TO PLACE FACEMASK ON AND BECAME QUITE AGITATED STATING IT'S HARD FOR HIM TO BREATHE. PT EDUCATED ON [facility] POLICY AND INPORTANCE OF MASK. PT REFUSED AND STATES HE WANTED TO LEAVE. PT A&O4. SARAH MARTINEZ AT BEDSIDE. PT TAKEN TO DC EXIT. AMBULATED INDEPENDENTLY WITH A STEADY GAIT.
== END 2020-02-24 19:25 | disposition left against medical advice (07) ==
LOC: ED 19:19
DX: G40.409 Other generalized epilepsy and epileptic syndromes, not intractable, without status epilepticus (principal); J44.9 Chronic obstructive pulmonary disease, unspecified; M19.90 Unspecified osteoarthritis, unspecified site; M10.9 Gout, unspecified; G40.909 Epilepsy, unspecified, not intractable, without status epilepticus; I10 Essential (primary) hypertension
CPT/HCPCS: 99283

== ENCOUNTER 2020-02-26 15:32 | Emergency (ER) | payer MEDICAID ==
[~2020-02-26] VITALS: Ht 172.7 cm; Wt 80.1 kg
[2020-02-26 15:35] VITALS: BP 106/75
--- NOTE | 2020-02-26 15:56 | NUR ---
THIS IS A 54 YO MALE COMING IN FOR A SEIZURE, UNCLEAR OF WHETHER IT WAS TODAY OR YESTERDAY, PATIENT HAD STATED IN TRIAGE THAT HE HAD TWO SEIZURES TODAY, HE TOLD THIS RN HE HAD ONE SEIZURE YESTERDAY. PATIENT IS A&OX4, RECALLS EVENT YESTERDAY, SMELLS OF ETOH, STATES HE DRANK "MORE THAN A FEW 24OZ BEERS". SPEAKING IN FULL SENTENCES, DENIES ANY PAIN OR TRAUMA FROM SEIZURES. STATES HE TAKES KEPPRA, LAST TAKEN THIS AM. ALL MONITORING IN PLACE. CALL LIGHT IN REACH
--- NOTE | 2020-02-26 16:00 | NUR ---
PATIENT YELLING FROM ROOM, STATES "GET ME THE FUCK OUT OF THIS PLACE, I JUST NEED WATER AND I'M LEAVING". PATIENT PROVIDED WITH WATER. MD GURPREET IN [facility] STATES "HE CAN LEAVE IF THAT IS WHAT HE WANTS".
--- NOTE | 2020-02-26 16:02 | NUR ---
PATIENT AMBULATORY, LEFT WITHOUT BEING SEEN BY ERP/ER PA
== END 2020-02-26 16:25 | disposition left against medical advice (07) ==
LOC: ED 15:45
DX: R56.9 Unspecified convulsions (principal)
CPT/HCPCS: 99281

== ENCOUNTER 2020-02-27 12:37 | Emergency (ER) | payer MEDICAID ==
[~2020-02-27] VITALS: Ht 172.7 cm; Wt 79.3 kg
[2020-02-27 12:44] VITALS: BP 112/75
== END 2020-02-27 13:03 ==
LOC: ED 12:50
DX: R56.9 Unspecified convulsions (principal); F10.20 Alcohol dependence, uncomplicated; I10 Essential (primary) hypertension; J44.9 Chronic obstructive pulmonary disease, unspecified; Y90.0 Blood alcohol level of less than 20 mg/100 ml
CPT/HCPCS: 99281

== ENCOUNTER 2020-03-03 07:51 | Emergency (ER) | payer MEDICAID ==
[~2020-03-03] VITALS: Ht 172.7 cm; Wt 78.9 kg
--- NOTE | 2020-03-03 08:52 | NUR ---
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
[2020-03-03] MEDS ORDERED: LEVE100020 PO (09:01)
--- NOTE | 2020-03-03 09:02 | NUR ---
TASK RN: PT W/ HX OF SEIZURES STATES HE FELT FUNNY AND SAT DOWN AND THE NEXT THING HE REMEMBERS IS WAKING UP WITH HIS HEAD IN "SOME LADIES LAP" SHE TOLD ME I SHOULD COME TO HOSPITAL. PT DENIES ANY TRUAMA A RESULT OF THE SEIZURE AND NO LOSS OF BOWEL OR BLADDER. PT RPTS THAT HE HAS BEEN COMPLIANT WITH HIS KEPPRA BUT CONTINUES TO HAVE SEIZURES. PT ALSO RPTS THAT HIS BAG WITH HIS OTHER MEDS WAS STOLLEN. PT GETS HIS RX FILLED [facility]. I OFFERED HIM A BUS PASS SO THAT HE CAN TAKE THE BUS TO THE [facility]. ER PA AT BEDSIDE, ASSESSMENT REVIEWED AND POC DISCUSSED.
[2020-03-03 09:06] VITALS: BP 152/84
--- NOTE | 2020-03-03 09:06 | NUR ---
SEIZURE PADS IN PLACE
[2020-03-03] MEDS ORDERED: THIAMINE 100MG TABLET ONE (09:22)
[2020-03-03] MEDS ORDERED: THIAMINE 100MG TABLET PO ONE (09:30)
--- NOTE | 2020-03-03 09:38 | NUR ---
TASK RN: BUS PASS GIVEN TO PT.
== END 2020-03-03 09:42 | disposition home or self-care (01) ==
LOC: ED 09:03
DX: G40.309 Generalized idiopathic epilepsy and epileptic syndromes, not intractable, without status epilepticus (principal); F10.129 Alcohol abuse with intoxication, unspecified; R47.81 Slurred speech; J44.9 Chronic obstructive pulmonary disease, unspecified; I10 Essential (primary) hypertension; Y90.9 Presence of alcohol in blood, level not specified
CPT/HCPCS: 99282

== ENCOUNTER 2020-03-04 13:51 | Emergency (ER) | payer MEDICAID ==
[~2020-03-04] VITALS: Ht 172.7 cm; Wt 78.7 kg
[2020-03-04 14:15] VITALS: BP 141/91
--- NOTE | 2020-03-04 15:40 | NUR ---
CAR VARNISHER: CALLED FOR PT. PT NOT IN LOBBY AT THIS TIME.
--- NOTE | 2020-03-04 15:55 | NUR ---
COOPERATIVE EDUCATION DIRECTOR: CALLED FOR PT. PT NOT IN LOBBY AT THIS TIME.
--- NOTE | 2020-03-04 16:21 | NUR ---
TRUCK BODY BUILDER APPRENTICE: CALLED FOR PT. PT NOT IN LOBBY. LWBS. DID NOT NOTIFY STAFF.
== END 2020-03-04 16:23 | disposition left against medical advice (07) ==
LOC: ED 16:17
DX: R56.9 Unspecified convulsions (principal)
CPT/HCPCS: 99281

== ENCOUNTER 2020-03-16 12:10 | Emergency (ER) | payer MEDICAID ==
[~2020-03-16] VITALS: Ht 172.7 cm; Wt 77.0 kg
--- NOTE | 2020-03-16 13:13 | NUR ---
CANDY FEEDER: PT AMBULATORY WITH STEADY GAIT TO ROOM AT THIS TIME. JIHAN
--- NOTE | 2020-03-16 13:20 | NUR ---
FIRST CONTACT WITH PT. PT HAD A SZ THIS MORNING AND HAD GLF. AT 0930. "KEATON BEEN TAKING MY MEDS LIKE IM SUPPOSED TOO" PT CP/ R KNEE PAIN AND HIGHTOWER AT THIS TIME. PT'S AOX4. RESPS EVEN AND UNLABORED. BP/SPO2 MONITORS IN PLACE. CALL LIGHT WITHIN REACH. SZ PADS PLACED.
[2020-03-16] MEDS ORDERED: LORazepam 1MG TABLET PO ONE (13:30)
[2020-03-16] MEDS ORDERED: ACETAMINOPHEN 500 MG TABLET PO ONE (13:30)
[2020-03-16] MEDS ORDERED: ACETAMINOPHEN 500 MG TABLET ONE (13:34)
[2020-03-16] MEDS ORDERED: LORazepam 1MG TABLET ONE (13:34)
--- NOTE | 2020-03-16 13:53 | NUR ---
PT MEDICATED PER EMAR. PT TOLERATED WELL.
[2020-03-16 13:57] LABS: BASOPHILS # (AUTO) 0.08 x10^3/uL (0-0.1); BASOPHILS % (AUTO) 1 % (0-1); EOSINOPHILS # (AUTO) 0.11 x10^3/uL (0-0.4); EOSINOPHILS % (AUTO) 1 % (1-7); LYMPHOCYTES # (AUTO) 1.92 x10^3/uL (1-3.4); LYMPHOCYTES % (AUTO) 21 % (22-44); MD NO; MEAN CORPUSCULAR HEMOGLOBIN 31.6 pg (27.5-34.5); MEAN CORPUSCULAR HGB CONC 33.3 g/dL (33.2-36.2); MEAN CORPUSCULAR VOLUME 94.7 fL (81-97); MEAN PLATELET VOLUME 8.1 fL (7.4-10.4); MONOCYTES # (AUTO) 0.71 x10^3/uL (0.2-0.8); MONOCYTES % (AUTO) 8 % (2-9); NEUTROPHILS # (AUTO) 6.14 x10^3/uL (1.8-6.8); NEUTROPHILS % (AUTO) 69 % (42-75); PLATELET COUNT 209 x10^3/uL (130-400); RED BLOOD COUNT 4.81 x10^6/uL (4.38-5.82); RED CELL DISTRIBUTION WIDTH 14.9 % (9.4-14.8)
[2020-03-16 14:04] VITALS: BP 117/67
[2020-03-16 14:09] LABS: ALBUMIN 4.2 g/dL (3.4-5.0); ANION GAP 5 mmol/L (5-15); CALCIUM 8.9 mg/dL (8.5-10.1); CHLORIDE 107 mmol/L (98-107); CREATININE 0.93 mg/dL (0.7-1.3)
== END 2020-03-16 15:00 | disposition home or self-care (01) ==
LOC: ED 13:20
DX: G40.309 Generalized idiopathic epilepsy and epileptic syndromes, not intractable, without status epilepticus (principal); R55 Syncope and collapse; J44.9 Chronic obstructive pulmonary disease, unspecified; I10 Essential (primary) hypertension; Z91.14 Patient's other noncompliance with medication regimen
CPT/HCPCS: 36415; 80048; 82040; 85025; 99283

== ENCOUNTER 2020-03-20 16:41 | Emergency (ER) | payer MEDICAID ==
[~2020-03-20] VITALS: Ht 172.7 cm; Wt 83.0 kg
[2020-03-20] MEDS ORDERED: LORazepam 1MG TABLET ONE (17:13)
--- NOTE | 2020-03-20 17:15 | NUR ---
DIP BRAZIER PER MAR
[2020-03-20 17:24] VITALS: BP 116/72
[2020-03-20] MEDS ORDERED: LORazepam 1MG TABLET PO ONE (17:30)
== END 2020-03-20 17:57 | disposition home or self-care (01) ==
LOC: ED 16:45
DX: R56.9 Unspecified convulsions (principal); I10 Essential (primary) hypertension; M10.9 Gout, unspecified
CPT/HCPCS: 99283

== ENCOUNTER 2020-03-22 17:58 | Emergency (ER) | payer MEDICAID ==
[~2020-03-22] VITALS: Ht 172.7 cm; Wt 83.0 kg
--- NOTE | 2020-03-22 18:02 | NUR ---
PT ARRIVED VIA EMS, PER REPORT PT WALKED TO [facility], HAD AND UNWITNESSED SEIZURE, NO POSTICTAL STATE NOTED. PT ABLE TO STAND ON BED SCALE. PT YELLING OUT AT TIMES, "I'M IN THE HOSPITAL AND I CANT GET ANY HELP" NO SEIZURE ACTIVITY NOTED.
[2020-03-22 18:11] VITALS: BP 102/70
--- NOTE | 2020-03-22 18:36 | NUR ---
PT STANDING UP, YELLING "I CANT GET ANY HELP, I HAVE BEEN HERE FOR 45 FUCKING MINUTES, WHY CANT I LEAVE" WAS DISCUSSED WITH PT THAT HE COULD HAVE A SEAT OR HE COULD LEAVE. PT LEFT, AMB, GAIT STEADY.
== END 2020-03-22 18:38 ==
LOC: ED 18:00
DX: R56.9 Unspecified convulsions (principal); Z53.21 Procedure and treatment not carried out due to patient leaving prior to being seen by health care provider

== ENCOUNTER 2020-03-26 04:26 | Emergency (ER) | payer MEDICAID ==
[~2020-03-26] VITALS: Ht 172.7 cm; Wt 79.1 kg
--- NOTE | 2020-03-26 04:36 | NUR ---
PT AMBULATORY TO ROOM, STEADY GAIT.
--- NOTE | 2020-03-26 04:43 | NUR ---
ERP TO BEDSIDE.
[2020-03-26] MEDS ORDERED: ACETAMINOPHEN 325 MG TABLET ONE (04:50)
--- NOTE | 2020-03-26 04:54 | NUR ---
PT LAYING IN BED, BOTH HANDS BEHIND HIS HEAD, RESTING HEAD IN HANDS IN POSITION OF COMFORT. NO SIGNS OF DISTRESS, RESPIRATIONS EVEN AND UNLABORED. SIDE RAILS UP X2. PT TO IMAGING AT THIS TIME.
[2020-03-26] MEDS ORDERED: ACETAMINOPHEN 325 MG TABLET PO ONE (05:00)
--- NOTE | 2020-03-26 05:12 | NUR ---
PT SLEEPING, EYES CLOSED, RESPIRATIONS EVEN AND UNLABORED.
[2020-03-26 06:11] VITALS: BP 131/80
== END 2020-03-26 06:14 | disposition home or self-care (01) ==
LOC: ED 05:00
DX: G40.409 Other generalized epilepsy and epileptic syndromes, not intractable, without status epilepticus (principal); R55 Syncope and collapse; J44.9 Chronic obstructive pulmonary disease, unspecified; I10 Essential (primary) hypertension
CPT/HCPCS: 70450; 99284

== ENCOUNTER 2020-03-28 07:04 | Emergency (ER) | payer MEDICAID ==
[~2020-03-28] VITALS: Ht 172.7 cm; Wt 77.2 kg
[2020-03-28 07:08] VITALS: BP 116/73
--- NOTE | 2020-03-28 08:53 | NUR ---
Patient given discharge instructions and they have confirmed that they understand the instructions. Patient ambulatory with steady gait.
== END 2020-03-28 08:54 | disposition home or self-care (01) ==
LOC: ED 08:41
DX: B86 Scabies (principal); B85.1 Pediculosis due to Pediculus humanus corporis; I10 Essential (primary) hypertension; J44.9 Chronic obstructive pulmonary disease, unspecified; F17.200 Nicotine dependence, unspecified, uncomplicated
CPT/HCPCS: 99283

== ENCOUNTER 2020-04-05 23:39 | Emergency (ER) | payer MEDICAID ==
[2020-04-06] MEDS ORDERED: SODIUM CHLORIDE 0.9% 1,000ML IVBOLUS ONE
[2020-04-06 00:07] LABS: BASOPHILS # (AUTO) 0.03 x10^3/uL (0-0.1); BASOPHILS % (AUTO) 0 % (0-1); EOSINOPHILS # (AUTO) 0.08 x10^3/uL (0-0.4); EOSINOPHILS % (AUTO) 1 % (1-7); LYMPHOCYTES # (AUTO) 0.87 x10^3/uL (1-3.4); LYMPHOCYTES % (AUTO) 10 % (22-44); MD NO; MEAN CORPUSCULAR HEMOGLOBIN 31.8 pg (27.5-34.5); MEAN CORPUSCULAR HGB CONC 33.3 g/dL (33.2-36.2); MEAN CORPUSCULAR VOLUME 95.5 fL (81-97); MEAN PLATELET VOLUME 8.1 fL (7.4-10.4); MONOCYTES # (AUTO) 0.49 x10^3/uL (0.2-0.8); MONOCYTES % (AUTO) 6 % (2-9); NEUTROPHILS # (AUTO) 7.41 x10^3/uL (1.8-6.8); NEUTROPHILS % (AUTO) 84 % (42-75); PLATELET COUNT 180 x10^3/uL (130-400); RED BLOOD COUNT 4.99 x10^6/uL (4.38-5.82); RED CELL DISTRIBUTION WIDTH 15.9 % (9.4-14.8)
[2020-04-06 00:14] LABS: ANION GAP 9 mmol/L (5-15); CALCIUM 9.2 mg/dL (8.5-10.1); CHLORIDE 108 mmol/L (98-107); CREATININE 1.07 mg/dL (0.7-1.3)
--- NOTE | 2020-04-06 00:22 | NUR ---
LATE ENTRY DUE TO PT CARE: THIS PT PRESENTS TO THE ER WITH A GCS OF 7 SCORED BY [facility]. PER EMS, PT HAD TONIC CLONIC SZ WITNESSED BY BART RAMIREZ AND WAS GIVEN 5MG VERSED IN THE LEFT DELTOID ON SCENE. PT HAS A HX OF SZ, ON PREVIOUS VISITS HAS ALWAYS STATED HE TAKES HIS PRESCRIBED MEDICATION AND TOLD THIS RN HE DOES TAKE HIS MEDS HIS GCS SCORE IMPROVED. ERP IMMEDIATELY TO BEDSIDE. EKG DONE. PT IMMEDIATELY PLACED ON CARDIAC, BP, O2 AND ETCO2 MONITORS. PT SATING WELL ON 3L NC, PER [facility] RA SAT IN THE 80S. SZ PRECAUTIONS IN PLACE. PT TO IMAGING NOW.
--- NOTE | 2020-04-06 01:05 | NUR ---
ERP BACK TO BEDSIDE. PT ABLE TO ANSWER QUESTIONS APPORPRIATELY.
--- NOTE | 2020-04-06 01:12 | NUR ---
PT UP OUT OF BED, DISCONNECTED SELF FROM MONITORS. STATING HE NEEDED TO URINATE. PT PROVIDED WITH URINAL. PT UNCOOPERATIVE WITH GETTING BACK TO BED. SECUIRITY CALLED. PT SAT ON EDGE OF BED TO URINATE. PT PUT BACK ON ALL MONITORS, VSS, GIVEN A CUP OF WATER AT PT REQUEST AND ERP OKAY.
[2020-04-06 01:20] VITALS: BP 145/86
[2020-04-06] MEDS ORDERED: LEVETIRACETAM 1,000 MG in SODIUM CHLORIDE 0.9% 100 ML IV ONE (01:30)
--- NOTE | 2020-04-06 01:52 | NUR ---
BREAK RN: PT FOUND STANDING AT THE SINK GETTING WATER. PT ASKED TO GET BACK ONTO GURNEY. STILL ATTACHED TO MONITORING EQUIPMENT. PT FOLLOWED COMMANDS AND GOT BACK ONTO GURNEY. PT PROVIDED WITH MORE WATER AND A URINAL. PROVIDED WITH CALL LIGHT AND INSTRUCTED ON HOW TO CALL FOR ASSISTANCE.
== END 2020-04-06 02:41 | disposition home or self-care (01) ==
LOC: ED 04-06 00:08
DX: G40.409 Other generalized epilepsy and epileptic syndromes, not intractable, without status epilepticus (principal); R00.0 Tachycardia, unspecified; R55 Syncope and collapse; I10 Essential (primary) hypertension; J44.9 Chronic obstructive pulmonary disease, unspecified; Z72.89 Other problems related to lifestyle
CPT/HCPCS: 36415; 70450; 71045; 80048; 80307; 82040; 82962; 83605; 85025; 93005; 96361; 96365; 99285; J1953; J7030

== ENCOUNTER 2020-04-06 05:13 | Emergency (ER) | payer MEDICAID | END 2020-04-06 05:31 | LOC: ED 05:14 | DX: M79.671 Pain in right foot (principal); Z72.9 Problem related to lifestyle, unspecified; I10 Essential (primary) hypertension; F17.200 Nicotine dependence, unspecified, uncomplicated | CPT/HCPCS: 99281 ==

== ENCOUNTER 2020-04-07 18:19 | Emergency (ER) | payer MEDICAID ==
[~2020-04-07] VITALS: Ht 172.7 cm; Wt 80.0 kg
--- NOTE | 2020-04-07 18:25 | NUR ---
PT BIB EMS FOR KEPPRA REFILL.
[2020-04-07] MEDS ORDERED: ACETAMINOPHEN 500 MG TABLET PO ONE (18:30)
[2020-04-07] MEDS ORDERED: LEVETIRACETAM 500 MG TABLET PO SCH (18:30)
[2020-04-07] MEDS ORDERED: LEVETIRACETAM 500 MG TABLET ONE (18:30)
[2020-04-07] MEDS ORDERED: ACETAMINOPHEN 500 MG TABLET ONE (18:31)
--- NOTE | 2020-04-07 18:59 | NUR ---
REPORT RECEIVED FROM TANYA WILLETT.
--- NOTE | 2020-04-07 19:04 | NUR ---
Report to Marla WILLETT
[2020-04-07 19:15] VITALS: BP 100/56
== END 2020-04-07 19:18 | disposition home or self-care (01) ==
LOC: ED 19:12
DX: G40.409 Other generalized epilepsy and epileptic syndromes, not intractable, without status epilepticus (principal); F10.10 Alcohol abuse, uncomplicated; I10 Essential (primary) hypertension; J44.9 Chronic obstructive pulmonary disease, unspecified; F17.200 Nicotine dependence, unspecified, uncomplicated; Y90.9 Presence of alcohol in blood, level not specified
CPT/HCPCS: 99283

== ENCOUNTER 2020-04-08 16:52 | Emergency (ER) | payer MEDICAID ==
[~2020-04-08] VITALS: Ht 172.7 cm; Wt 77.4 kg
[2020-04-08 17:06] VITALS: BP 113/71
--- NOTE | 2020-04-08 17:54 | NUR ---
PIPELINE INSPECTOR: PT TO ROOM FROM BRIAN KING
--- NOTE | 2020-04-08 18:05 | NUR ---
PT WASHING HIS FEET, SOCKS GIVEN
[2020-04-08] MEDS ORDERED: IBUPROFEN 600 MG TABLET PO ONE (18:30)
--- NOTE | 2020-04-08 18:38 | NUR ---
PT NOT IN ROOM
== END 2020-04-08 18:40 | disposition home or self-care (01) ==
LOC: ED 18:00
DX: M79.672 Pain in left foot (principal); M79.671 Pain in right foot; B35.3 Tinea pedis; J44.9 Chronic obstructive pulmonary disease, unspecified
CPT/HCPCS: 99282

== ENCOUNTER 2020-04-17 23:45 | Emergency (ER) | payer MEDICAID ==
[~2020-04-17] VITALS: Ht 172.7 cm; Wt 82.0 kg
--- NOTE | 2020-04-18 00:07 | NUR ---
PT IS A/0X4, SLURRED SPEACH, UNSTEADY GAIT ADMITS TO DRINKING ETOH TONIGHT. VSS, RR EQUAL AND UNLABORED. NO S/S TRAUMA, NO SEIZURE ACTIVITY. PT IN RNEY SIDE RAILS UP, CALL LIGHT IN REACH. AIDET PROVIDED. WILL CONTINUE TO MONITOR.
--- NOTE | 2020-04-18 00:12 | NUR ---
PT SLEEPING, RR EQUAL AND UNLABORED. SIDE RAILS UP, ON CONT PULSE OX, CALL MCDONALD IN REACH. WILL CONTINUE TO MONITOR.
--- NOTE | 2020-04-18 02:58 | NUR ---
PT SLEEPING, RR EQUAL AND UNLABORED. VSS. WILL CONTINUE TO MONITOR.
[2020-04-18 03:22] VITALS: BP 135/78
--- NOTE | 2020-04-18 04:02 | NUR ---
SLEEPING, RR EQUAL AND UNLABORED. VSS. WILL CONTINUE TO MONITOR.
--- NOTE | 2020-04-18 04:15 | NUR ---
PT AWAKE, AMBULATES WITH STEADY GAIT, A/OX4, RR EQUAL AND UNLABORED. PT DRINKING WATER WITH NO N/V. Addendum: 04/18/20 at 0446 by [email or web address] PT GIVEN DC PAPERS, VSS, PT AGREES WITH DISPO. NAD. PT APPROP DRESSED. 440: PT BECAME AGITATED, SWEARING, REFUSING TO LEAVE THROUGH APPROPRIATE DOOR. SECURITY CALLED TO ESCORT. ALL BELONGINGS RETURNED TO PT UPON DISCHARGE.
== END 2020-04-18 04:55 | disposition home or self-care (01) ==
LOC: ED 04-18 00:07
DX: F10.120 Alcohol abuse with intoxication, uncomplicated (principal); J44.9 Chronic obstructive pulmonary disease, unspecified; I10 Essential (primary) hypertension; F17.210 Nicotine dependence, cigarettes, uncomplicated; Z72.9 Problem related to lifestyle, unspecified; Y90.9 Presence of alcohol in blood, level not specified
CPT/HCPCS: 99283; 99406

== ENCOUNTER 2020-05-02 02:20 | Emergency (ER) | payer MEDICAID ==
[~2020-05-02] VITALS: Ht 172.7 cm; Wt 78.8 kg
[2020-05-02 02:27] VITALS: BP 162/97
[2020-05-02] MEDS ORDERED: IBUPROFEN 600 MG TABLET ONE (02:57)
[2020-05-02] MEDS ORDERED: IBUPROFEN 600 MG TABLET PO ONE (03:00)
== END 2020-05-02 03:01 | disposition home or self-care (01) ==
LOC: ED 02:50
DX: R56.9 Unspecified convulsions (principal); R51 Headache; J44.9 Chronic obstructive pulmonary disease, unspecified; I10 Essential (primary) hypertension; Z76.0 Encounter for issue of repeat prescription
CPT/HCPCS: 99283

== ENCOUNTER 2020-05-03 16:03 | Emergency (ER) | payer MEDICAID ==
[~2020-05-03] VITALS: Ht 172.7 cm; Wt 81.2 kg
[2020-05-03 16:08] VITALS: BP 116/63
--- NOTE | 2020-05-03 16:13 | NUR ---
AMBULATORY TO ROOM 16
--- NOTE | 2020-05-03 16:21 | NUR ---
Pt brought back from triage with chief complaint of reported unwitnessed seizure.
[2020-05-03] MEDS ORDERED: ACETAMINOPHEN 500 MG TABLET PO ONE (17:00)
[2020-05-03] MEDS ORDERED: LEVETIRACETAM 500 MG TABLET PO ONE (17:00)
--- NOTE | 2020-05-03 17:04 | NUR ---
TASK RN: CARE FOR DC ONLY PROVIDED. PT SITTING UP ON GURNEY. NO ACUTE DISTRESS NOTED. NO SEIZURE ACTIVITY. NO IV TO DC. REVIEWED DC INSTRUCTIONS WITH PT, UNDERSTANDING VERBALIZED. PT LEFT AMB, GAIT STEADY.
== END 2020-05-03 17:07 | disposition home or self-care (01) ==
LOC: ED 16:53
DX: G40.409 Other generalized epilepsy and epileptic syndromes, not intractable, without status epilepticus (principal); R79.1 Abnormal coagulation profile; Z76.0 Encounter for issue of repeat prescription; I10 Essential (primary) hypertension; J44.9 Chronic obstructive pulmonary disease, unspecified; M10.9 Gout, unspecified; F17.200 Nicotine dependence, unspecified, uncomplicated
CPT/HCPCS: 99281

== ENCOUNTER 2020-05-17 14:51 | Emergency (ER) | payer MEDICAID ==
[~2020-05-17] VITALS: Ht 172.7 cm; Wt 81.0 kg
[2020-05-17 14:53] VITALS: BP 115/81
--- NOTE | 2020-05-17 15:29 | NUR ---
DATA INTEGRITY ANALYST: PT TO ROOM FROM BRIAN KING
--- NOTE | 2020-05-17 16:36 | NUR ---
Pt provided with dc instructions, verbalizes understanding. Pt ambulatory to bathroom and back to bed without difficulty.
== END 2020-05-17 16:47 | disposition home or self-care (01) ==
LOC: ED 15:56
DX: M25.511 Pain in right shoulder (principal); I10 Essential (primary) hypertension; J44.9 Chronic obstructive pulmonary disease, unspecified; M10.9 Gout, unspecified; F17.200 Nicotine dependence, unspecified, uncomplicated
CPT/HCPCS: 99282

== ENCOUNTER 2020-05-18 17:23 | Emergency (ER) | payer MEDICAID ==
[~2020-05-18] VITALS: Ht 172.7 cm; Wt 83.9 kg
[2020-05-18 17:25] VITALS: BP 124/86
--- NOTE | 2020-05-18 18:13 | NUR ---
BREAK RN: PT TO ROOM FROM LOBBY
--- NOTE | 2020-05-18 18:19 | NUR ---
BREAK RN: THIS IS A 54 YEAR OLD MALE WHO STATES, "THEY TOLD ME TO COME BACK IF I WAS STILL HAVING PAIN IN RIGHT KNEE AND RIGHT ANKLE. THERE IS STILL PAIN"
== END 2020-05-18 18:37 | disposition home or self-care (01) ==
LOC: ED 18:00
DX: R56.9 Unspecified convulsions (principal)
CPT/HCPCS: 99281

== ENCOUNTER 2020-05-20 06:16 | Emergency (ER) | payer MEDICAID ==
[~2020-05-20] VITALS: Ht 172.7 cm; Wt 78.8 kg
[2020-05-20 06:19] VITALS: BP 113/70
[2020-05-20] MEDS ORDERED: IBUPROFEN 200 MG TABLET ONE (06:39)
--- NOTE | 2020-05-20 06:56 | NUR ---
REPORT RECIEVED FROM TAMIE LOWE
--- NOTE | 2020-05-20 06:57 | NUR ---
PT REC'VD DISCHARGE INSTRUCTIONS AND EDUCATION. PT HAD NO FURTHER QUESTIONS. PT AMBULATED TO DC DESK, STEADY GAIT.
[2020-05-20] MEDS ORDERED: IBUPROFEN 200 MG TABLET PO ONE (07:00)
== END 2020-05-20 07:00 | disposition home or self-care (01) ==
LOC: ED 06:35
DX: G89.29 Other chronic pain (principal); M25.561 Pain in right knee
CPT/HCPCS: 99282

== ENCOUNTER 2020-05-23 08:03 | Emergency (ER) | payer MEDICAID ==
[~2020-05-23] VITALS: Ht 172.7 cm; Wt 80.9 kg
[2020-05-23 08:06] VITALS: BP 120/75
== END 2020-05-23 10:22 | disposition home or self-care (01) ==
LOC: ED 09:00
DX: S62.665A Nondisplaced fracture of distal phalanx of left ring finger, initial encounter for closed fracture (principal); M79.89 Other specified soft tissue disorders; F17.200 Nicotine dependence, unspecified, uncomplicated; X50.1XXA Overexertion from prolonged static or awkward postures, initial encounter; Y93.89 Activity, other specified; Y92.89 Other specified places as the place of occurrence of the external cause; Y99.8 Other external cause status
CPT/HCPCS: 29130; 99283

== ENCOUNTER 2020-05-24 06:59 | Emergency (ER) | payer MEDICAID ==
[~2020-05-24] VITALS: Ht 172.7 cm; Wt 81.1 kg
[2020-05-24] MEDS ORDERED: LEVETIRACETAM 500 MG TABLET PO ONE (07:30)
[2020-05-24] MEDS ORDERED: LEVETIRACETAM 500 MG TABLET ONE (07:32)
[2020-05-24 07:43] VITALS: BP 118/84
--- NOTE | 2020-05-24 07:45 | NUR ---
Patient given discharge instructions and they have confirmed that they understand the instructions. Patient ambulatory with steady gait. bus pass given at [place].
== END 2020-05-24 07:46 | disposition home or self-care (01) ==
LOC: ED 07:20
DX: R56.9 Unspecified convulsions (principal); Z76.0 Encounter for issue of repeat prescription; F17.210 Nicotine dependence, cigarettes, uncomplicated; I10 Essential (primary) hypertension; J44.9 Chronic obstructive pulmonary disease, unspecified
CPT/HCPCS: 99281; 99406

== ENCOUNTER 2020-06-05 07:03 | Emergency (ER) | payer MEDICAID ==
[~2020-06-05] VITALS: Ht 172.7 cm; Wt 85.3 kg
[2020-06-05 07:08] VITALS: BP 116/71
[2020-06-05] MEDS ORDERED: LEVETIRACETAM 500 MG TABLET PO ONE (07:30)
[2020-06-05] MEDS ORDERED: LEVETIRACETAM 500 MG TABLET ONE (07:34)
== END 2020-06-05 07:50 | disposition home or self-care (01) ==
LOC: ED 07:35
DX: G40.409 Other generalized epilepsy and epileptic syndromes, not intractable, without status epilepticus (principal); J44.9 Chronic obstructive pulmonary disease, unspecified; I10 Essential (primary) hypertension
CPT/HCPCS: 99283

== ENCOUNTER 2020-06-06 07:37 | Emergency (ER) | payer MEDICAID ==
[~2020-06-06] VITALS: Ht 172.7 cm; Wt 81.2 kg
[2020-06-06 07:41] VITALS: BP 108/72
--- NOTE | 2020-06-06 09:13 | NUR ---
attempt to room patient from lobby. patient in bathroom at this time
--- NOTE | 2020-06-06 09:19 | NUR ---
PATIENT TO ROOM FROM LOBBY
== END 2020-06-06 09:35 | disposition home or self-care (01) ==
LOC: ED 09:29
DX: G40.309 Generalized idiopathic epilepsy and epileptic syndromes, not intractable, without status epilepticus (principal); I10 Essential (primary) hypertension; J44.9 Chronic obstructive pulmonary disease, unspecified
CPT/HCPCS: 99281

== ENCOUNTER 2020-06-13 07:46 | Emergency (ER) | payer MEDICAID ==
[~2020-06-13] VITALS: Ht 172.7 cm; Wt 82.8 kg
[2020-06-13 07:56] VITALS: BP 145/94
[2020-06-13] MEDS ORDERED: IBUPROFEN 600 MG TABLET ONE (08:52)
--- NOTE | 2020-06-13 08:53 | NUR ---
pt sitting up, no distress, admin meds for headach.
[2020-06-13] MEDS ORDERED: IBUPROFEN 600 MG TABLET PO ONE (09:00)
== END 2020-06-13 09:08 | disposition home or self-care (01) ==
LOC: ED 08:23
DX: G40.309 Generalized idiopathic epilepsy and epileptic syndromes, not intractable, without status epilepticus (principal); R55 Syncope and collapse
CPT/HCPCS: 99283

== ENCOUNTER 2020-06-14 07:43 | Emergency (ER) | payer MEDICAID ==
[~2020-06-14] VITALS: Ht 172.7 cm; Wt 82.1 kg
[2020-06-14 07:44] VITALS: BP 132/88
[2020-06-14] MEDS ORDERED: LEVETIRACETAM 500 MG TABLET ONE (08:21)
[2020-06-14] MEDS ORDERED: LEVETIRACETAM 500 MG TABLET PO ONE (08:30)
== END 2020-06-14 08:33 | disposition home or self-care (01) ==
LOC: ED 07:57
DX: R56.9 Unspecified convulsions (principal); J44.9 Chronic obstructive pulmonary disease, unspecified; I10 Essential (primary) hypertension; M10.9 Gout, unspecified; Z91.14 Patient's other noncompliance with medication regimen
CPT/HCPCS: 93005; 99283

== ENCOUNTER 2020-06-16 08:05 | Emergency (ER) | payer MEDICAID ==
[~2020-06-16] VITALS: Ht 172.7 cm; Wt 82.6 kg
--- NOTE | 2020-06-16 08:18 | NUR ---
PT AMBULATORY TO TRIAGE
[2020-06-16] MEDS ORDERED: LEVETIRACETAM 500 MG TABLET PO SCH (08:30)
[2020-06-16] MEDS ORDERED: LEVETIRACETAM 500 MG TABLET ONE (08:39)
--- NOTE | 2020-06-16 08:40 | NUR ---
EKG PERFORMED. NSR. GIVEN TO
[2020-06-16 08:58] LABS: BASOPHILS % (AUTO) 1 % (0-1); EOSINOPHILS % (AUTO) 2 % (1-7); LYMPHOCYTES % (AUTO) 20 % (22-44); MEAN CORPUSCULAR HEMOGLOBIN 31.6 pg (27.5-34.5); MEAN CORPUSCULAR HGB CONC 33.6 g/dL (33.2-36.2); MONOCYTES % (AUTO) 7 % (2-9); NEUTROPHILS % (AUTO) 71 % (42-75); PLATELET COUNT 211 x10^3/uL (130-400); RED BLOOD COUNT 5.24 x10^6/uL (4.38-5.82); RED CELL DISTRIBUTION WIDTH 14.3 % (9.4-14.8)
[2020-06-16 09:00] LABS: MD NO
[2020-06-16 09:01] LABS: ALANINE AMINOTRANSFERASE 36 U/L (12-78); ALBUMIN 4.1 g/dL (3.4-5.0); ANION GAP 3 mmol/L (5-15); CALCIUM 9.2 mg/dL (8.5-10.1); CHLORIDE 106 mmol/L (98-107); CREATININE 0.77 mg/dL (0.7-1.3)
[2020-06-16 09:03] LABS: ALKALINE PHOSPHATASE 75 U/L (45-117); BILIRUBIN,TOTAL 0.4 mg/dL (0.2-1.0); TOTAL PROTEIN 8.4 g/dL (6.4-8.2)
[2020-06-16 09:39] VITALS: BP 121/84
--- NOTE | 2020-06-16 09:39 | NUR ---
ambulatory at discharge. no seizure activity. vss. verbalized understanding of discharge instructions.
== END 2020-06-16 09:41 | disposition home or self-care (01) ==
LOC: ED 09:08
DX: R56.9 Unspecified convulsions (principal); I21.9 Acute myocardial infarction, unspecified; J44.9 Chronic obstructive pulmonary disease, unspecified; I10 Essential (primary) hypertension; Z79.899 Other long term (current) drug therapy
CPT/HCPCS: 36415; 80053; 85025; 93005; 99284; 99285

== ENCOUNTER 2020-06-22 06:22 | Emergency (ER) | payer MEDICAID ==
[~2020-06-22] VITALS: Ht 172.7 cm; Wt 84.3 kg
[2020-06-22 06:26] VITALS: BP 146/80
--- NOTE | 2020-06-22 06:57 | NUR ---
Pt presents to ed following reported sz activity. Pt walked to ED. Reports his decrease in Keppra has resulted in SZ frequency. No noted trauma. Denies blood thinner use. Awaiting ANNE briscoeal.
[2020-06-22] MEDS ORDERED: LEVETIRACETAM 500 MG TABLET ONE (06:59)
[2020-06-22] MEDS ORDERED: LEVETIRACETAM 500 MG TABLET PO ONE (07:00)
== END 2020-06-22 07:21 | disposition home or self-care (01) ==
LOC: ED 07:15
DX: R56.9 Unspecified convulsions (principal); I25.2 Old myocardial infarction; F17.290 Nicotine dependence, other tobacco product, uncomplicated; Z91.14 Patient's other noncompliance with medication regimen; Z72.9 Problem related to lifestyle, unspecified
CPT/HCPCS: 93005; 99283

== ENCOUNTER 2020-06-24 08:49 | Emergency (ER) | payer MEDICAID ==
[~2020-06-24] VITALS: Ht 172.7 cm; Wt 82.6 kg
--- NOTE | 2020-06-24 09:10 | NUR ---
assumed care of pt. 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 pt has hx of sz and reports that he is out of his keppra. pt reports that he has been compliant with his meds, but that he took hs last dose of keppra yesterday and it was only a half dose. pt reports that he has a Dr. appointment to see his MD today for a new Rx. pt is A&O x4. ambulatory and WIGGINS. no injuries. no wounds. pt answers all questions and follows all commands appropriatley
[2020-06-24 09:24] VITALS: BP 139/85
== END 2020-06-24 09:27 | disposition home or self-care (01) ==
LOC: ED 08:54
DX: R56.9 Unspecified convulsions (principal); R55 Syncope and collapse; J44.9 Chronic obstructive pulmonary disease, unspecified; I10 Essential (primary) hypertension; E87.6 Hypokalemia
CPT/HCPCS: 99281

== ENCOUNTER 2020-07-02 10:10 | Emergency (ER) | payer MEDICAID ==
[~2020-07-02] VITALS: Ht 172.7 cm; Wt 80.2 kg
[2020-07-02 10:19] VITALS: BP 135/89
== END 2020-07-02 12:51 | disposition left against medical advice (07) ==
LOC: ED 11:54
DX: R56.9 Unspecified convulsions (principal); Z53.21 Procedure and treatment not carried out due to patient leaving prior to being seen by health care provider

== ENCOUNTER 2020-07-12 07:46 | Emergency (ER) | payer MEDICAID ==
[~2020-07-12] VITALS: Ht 167.6 cm; Wt 70.0 kg
[2020-07-12 07:54] VITALS: BP 138/56
--- NOTE | 2020-07-12 09:07 | NUR ---
TO SEE PT. NOT IN [place].
== END 2020-07-12 09:31 ==
LOC: ED 08:00
DX: L50.8 Other urticaria (principal); Z59.0 Homelessness
CPT/HCPCS: 99281

== ENCOUNTER 2020-07-27 09:12 | Emergency (ER) | payer MEDICAID ==
[~2020-07-27] VITALS: Ht 172.7 cm; Wt 77.3 kg
[2020-07-27 09:36] VITALS: BP 115/73
== END 2020-07-27 10:06 | disposition home or self-care (01) ==
LOC: ED 09:55
DX: R56.9 Unspecified convulsions (principal)
CPT/HCPCS: 99281

== ENCOUNTER 2020-08-25 22:45 | Emergency (ER) | payer MEDICAID ==
[~2020-08-25] VITALS: Ht 172.7 cm; Wt 69.5 kg
[2020-08-25] MEDS ORDERED: LEVETIRACETAM 500 MG TABLET PO ONE (23:00)
[2020-08-25] MEDS ORDERED: LEVETIRACETAM 500 MG TABLET ONE (23:07)
--- NOTE | 2020-08-25 23:12 | NUR ---
First contact pt wakes up with verbal comm, seizure pads placed. Lab here drawing blood.
--- NOTE | 2020-08-25 23:18 | NUR ---
Medicated with keppra per order. Pt may or may not have bugs, white sheet outside door. CN informed.
[2020-08-25 23:24] LABS: BASOPHILS % (AUTO) 1 % (0-1); EOSINOPHILS % (AUTO) 3 % (1-7); LYMPHOCYTES % (AUTO) 46 % (22-44); MEAN CORPUSCULAR HEMOGLOBIN 32.8 pg (27.5-34.5); MEAN PLATELET VOLUME 7.7 fL (7.4-10.4); MONOCYTES % (AUTO) 7 % (2-9); NEUTROPHILS % (AUTO) 43 % (42-75); PLATELET COUNT 236 x10^3/uL (130-400); RED BLOOD COUNT 4.74 x10^6/uL (4.38-5.82); RED CELL DISTRIBUTION WIDTH 14.4 % (9.4-14.8)
[2020-08-25 23:32] LABS: ALBUMIN 3.7 g/dL (3.4-5.0); ANION GAP 10 mmol/L (5-15); CALCIUM 8.2 mg/dL (8.5-10.1); CHLORIDE 110 mmol/L (98-107); CREATININE 0.81 mg/dL (0.7-1.3)
[2020-08-25 23:34] LABS: ALANINE AMINOTRANSFERASE 36 U/L (12-78); ALKALINE PHOSPHATASE 68 U/L (45-117); BILIRUBIN,TOTAL 0.3 mg/dL (0.2-1.0); TOTAL PROTEIN 7.4 g/dL (6.4-8.2)
[2020-08-25 23:50] VITALS: BP 135/74
--- NOTE | 2020-08-25 23:50 | NUR ---
Pt in NAD, ambulates with steady gait able to safely navigate community and resources. VSS. Dc papers given, arm band cut off.
[2020-08-25 23:53] LABS: MD SCAN
--- NOTE | 2020-08-25 23:55 | NUR ---
Upon discharge pt refusing to leave, swearing throwing things. Security called for assistance.
--- NOTE | 2020-08-25 23:58 | NUR ---
SAUNDRA called by security.
--- NOTE | 2020-08-26 00:36 | NUR ---
RPSanjeev here taking pt out of ER, pt has all his belongings.
== END 2020-08-26 00:38 ==
LOC: ED 22:52
DX: F10.120 Alcohol abuse with intoxication, uncomplicated (principal); R56.9 Unspecified convulsions; I10 Essential (primary) hypertension; J44.9 Chronic obstructive pulmonary disease, unspecified; M10.9 Gout, unspecified; F17.200 Nicotine dependence, unspecified, uncomplicated; Z72.9 Problem related to lifestyle, unspecified; Y90.0 Blood alcohol level of less than 20 mg/100 ml
CPT/HCPCS: 36415; 80053; 80320; 85025; 93005; 99284; G0480

== ENCOUNTER 2020-08-30 14:52 | Emergency (ER) | payer MEDICAID ==
[~2020-08-30] VITALS: Ht 172.7 cm; Wt 79.1 kg
[2020-08-30 14:55] VITALS: BP 102/68
--- NOTE | 2020-08-30 15:20 | NUR ---
PT STATES HE TOOK 2 EXTRA KEPPRA SINCE YESTERDAY TO CONTOL HIS SEIZURES- HAS HAD 3 IN 24 HOURS- aOX4 ANSWERS QUESTIONS APPROPRIATLEY. ETOH ON BREATH
[2020-08-30] MEDS ORDERED: LEVETIRACETAM 500 MG TABLET PO ONE (15:21)
[2020-08-30] MEDS ORDERED: LEVETIRACETAM 500 MG TABLET ONE (15:33)
--- NOTE | 2020-08-30 16:42 | NUR ---
pt d/cd with instruction, prescriptions and can voucher to [facility]
== END 2020-08-30 16:45 | disposition home or self-care (01) ==
LOC: ED 15:25
DX: G40.409 Other generalized epilepsy and epileptic syndromes, not intractable, without status epilepticus (principal); R05 Cough; I10 Essential (primary) hypertension; J44.9 Chronic obstructive pulmonary disease, unspecified; F17.200 Nicotine dependence, unspecified, uncomplicated; Z91.19 Patient's noncompliance with other medical treatment and regimen
CPT/HCPCS: 99283

== ENCOUNTER 2020-08-31 16:14 | Emergency (ER) | payer MEDICAID ==
[~2020-08-31] VITALS: Ht 172.7 cm; Wt 79.1 kg
--- NOTE | 2020-08-31 16:14 | NUR ---
CHRISTIANE FROM [facility] AFTER CALLED BY BART POLLARD C/O ETOH ("I'VE HAD 3 X24OZ BEERS & 1/2 GAL VODKA TODAY"); NO INTERVENTIONS HELPER [employer] PER EMS; PT SLURRING WORDS & CALM BUT MOSTLY UNCOOPERATIVE ON ARRIVAL, NAD, NO NEEDS AT THIS TIME, CALL LIGHT & BSU WITHIN REACH.
[2020-08-31 17:04] VITALS: BP 97/54
--- NOTE | 2020-08-31 17:04 | NUR ---
PT SLEEPING ON GURNEY CALMLY, NAD, NO NEEDS AT THIS TIME, CALL LIGHT & BSU WITHIN REACH.
--- NOTE | 2020-08-31 18:02 | NUR ---
PT SLEEPING ON GURNEY CALMLY, REFUSED VS, NAD WITH EQUAL CHEST RISE/FALL, NO NEEDS AT THIS TIME, CALL LIGHT WITHIN REACH.
[2020-08-31 18:31] LABS: ALBUMIN 4.1 g/dL (3.4-5.0); ANION GAP 10 mmol/L (5-15); CALCIUM 8.8 mg/dL (8.5-10.1); CHLORIDE 106 mmol/L (98-107); CREATININE 0.64 mg/dL (0.7-1.3)
--- NOTE | 2020-08-31 18:48 | NUR ---
REPORT GIVEN TO SHERYL
--- NOTE | 2020-08-31 18:50 | NUR ---
REPORT RECIEVED FROM TAMIE GARCIA. ASSUMED CARE
== END 2020-08-31 21:11 | disposition home or self-care (01) ==
LOC: ED 17:59
DX: F10.120 Alcohol abuse with intoxication, uncomplicated (principal); I10 Essential (primary) hypertension; J44.9 Chronic obstructive pulmonary disease, unspecified; Y90.9 Presence of alcohol in blood, level not specified
CPT/HCPCS: 36415; 80048; 80320; 82040; 99283; G0480

== ENCOUNTER 2020-09-02 19:02 | Emergency (ER) | payer MEDICAID ==
[~2020-09-02] VITALS: Ht 172.7 cm; Wt 81.8 kg
--- NOTE | 2020-09-02 19:49 | NUR ---
LABS DRAWN, EKG IN PROCESS.
[2020-09-02 19:55] LABS: BASOPHILS % (AUTO) 1 % (0-1); EOSINOPHILS % (AUTO) 2 % (1-7); LYMPHOCYTES % (AUTO) 32 % (22-44); MEAN CORPUSCULAR HEMOGLOBIN 32.5 pg (27.5-34.5); MEAN CORPUSCULAR HGB CONC 34.1 g/dL (33.2-36.2); MEAN PLATELET VOLUME 7.7 fL (7.4-10.4); MONOCYTES % (AUTO) 8 % (2-9); NEUTROPHILS % (AUTO) 58 % (42-75); PLATELET COUNT 246 x10^3/uL (130-400); RED BLOOD COUNT 4.92 x10^6/uL (4.38-5.82); RED CELL DISTRIBUTION WIDTH 14.4 % (9.4-14.8)
[2020-09-02 19:58] LABS: MD NO
[2020-09-02 20:07] LABS: ANION GAP 8 mmol/L (5-15); CALCIUM 8.5 mg/dL (8.5-10.1); CHLORIDE 108 mmol/L (98-107); CREATININE 0.74 mg/dL (0.7-1.3)
--- NOTE | 2020-09-02 20:27 | NUR ---
SARAH ROSA IN TO DISCUSS D/C PLAN WITH PT. PT. PROVIDED CAB VOUCHER FOR SAFE D/C BACK TO [facility]. PT. CONTINUES TO DENY ANY SI/HI.
[2020-09-02 20:29] VITALS: BP 114/68
== END 2020-09-02 20:28 | disposition home or self-care (01) ==
LOC: ED 19:43
DX: F10.229 Alcohol dependence with intoxication, unspecified (principal); R56.9 Unspecified convulsions; F17.210 Nicotine dependence, cigarettes, uncomplicated; M10.9 Gout, unspecified; J44.9 Chronic obstructive pulmonary disease, unspecified; Z72.9 Problem related to lifestyle, unspecified; Y90.0 Blood alcohol level of less than 20 mg/100 ml
CPT/HCPCS: 36415; 80048; 85025; 93005; 99284; 99406

== ENCOUNTER 2020-09-05 17:59 | Emergency (ER) | payer MEDICAID ==
[~2020-09-05] VITALS: Ht 172.7 cm; Wt 81.1 kg
--- NOTE | 2020-09-05 18:57 | NUR ---
leasing agent note: Pt to room from lobby.
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
--- NOTE | 2020-09-05 20:15 | NUR ---
discharge instructions reviewed with patient. he states "i dont know why they decreased my medication when i was still having seizures on 1000mg". RN encouraged patient to follow up monday with his provider to discuss this change. patient continues to deny SI/HI at time of dc. he states "i dont want to end it. i dont want to ". Resource pamphlets reviewed and provided to patient for reference and reference. opioid abuse, substance addicition and behavior resources provided. Also, a list of shelters. patient gladly accepted these resources. all personal belongings with patient. steady gait to lobby. [facility]
[2020-09-05 20:21] VITALS: BP 127/74
== END 2020-09-05 20:24 | disposition home or self-care (01) ==
LOC: ED 20:18
DX: G40.409 Other generalized epilepsy and epileptic syndromes, not intractable, without status epilepticus (principal); R55 Syncope and collapse; N39.498 Other specified urinary incontinence; J44.9 Chronic obstructive pulmonary disease, unspecified; I10 Essential (primary) hypertension
CPT/HCPCS: 99281

== ENCOUNTER 2020-09-20 13:22 | Emergency (ER) | payer MEDICAID ==
[~2020-09-20] VITALS: Ht 172.7 cm; Wt 82.0 kg
--- NOTE | 2020-09-20 13:32 | NUR ---
PT BIB EMS FOR SZ. PT DENIES HAVING A SX BUT SAYS "I WAS GETTING SHAKY AND SOMETIMES I GET SHAKY RIGHT BEFORE I HAVE A SZ". PT RESTING IN RBERWIND. CONNECTED TO ALL MONITORING EQUIPMENT. SZ PRECAUTIONS IN PLACE. MD IS BEDSIDE FOR ASSESSMENT
[2020-09-20] MEDS ORDERED: LEVETIRACETAM 500 MG TABLET ONE (13:42)
[2020-09-20] MEDS ORDERED: LEVETIRACETAM 500 MG TABLET PO ONE (14:00)
[2020-09-20 14:17] VITALS: BP 114/80
--- NOTE | 2020-09-20 14:32 | NUR ---
PT AMBULATED OUT WITH STEADY GATE. PT REFUSED A TAXI VOUCHER OR A BUS PASS. "I WANT TO WALK"
== END 2020-09-20 14:19 | disposition home or self-care (01) ==
LOC: ED 14:10
DX: R42 Dizziness and giddiness (principal); R56.9 Unspecified convulsions; R09.81 Nasal congestion; I10 Essential (primary) hypertension; J44.9 Chronic obstructive pulmonary disease, unspecified; F17.200 Nicotine dependence, unspecified, uncomplicated; M10.9 Gout, unspecified
CPT/HCPCS: 99283

== ENCOUNTER 2020-09-22 21:09 | Emergency (ER) | payer MEDICAID ==
[~2020-09-22] VITALS: Ht 172.7 cm; Wt 75.0 kg
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
[2020-09-22 22:47] VITALS: BP 92/51
--- NOTE | 2020-09-22 23:54 | NUR ---
pt steady ambulating, joking with this rn, given d/c instructions and bus pass home.
== END 2020-09-22 23:57 | disposition home or self-care (01) ==
LOC: ED 21:26
DX: F10.229 Alcohol dependence with intoxication, unspecified (principal); F17.210 Nicotine dependence, cigarettes, uncomplicated; Z72.9 Problem related to lifestyle, unspecified; I10 Essential (primary) hypertension; J44.9 Chronic obstructive pulmonary disease, unspecified; G40.909 Epilepsy, unspecified, not intractable, without status epilepticus; M19.90 Unspecified osteoarthritis, unspecified site; Y90.0 Blood alcohol level of less than 20 mg/100 ml
CPT/HCPCS: 99283; 99406

== ENCOUNTER 2020-10-28 16:23 | Emergency (ER) | payer MEDICAID, OTHER ==
[~2020-10-28] VITALS: Ht 172.7 cm; Wt 84.0 kg
--- NOTE | 2020-10-28 16:39 | NUR ---
PT BIB EMS FROM [facility] AFTER EXPERIENCING MULTIPLE SEIZURES. PT HAS A HX OF SEIZURES PER EMS. PER EMS PT HAS NOT FULLY RECOVERED FROM THE POSTICTAL STATE. PY GAVE 5 MG VERSED IM PROTECTION MANAGER. EMS ESTABLISHED IV RIGHT AC, 20 GA. PT HAS ABRASION TO CHIN, UNK WHAT HAPPENED.
[2020-10-28] MEDS ORDERED: LORazepam 2 MG/ML, 1ML IVPush ONE (17:30)
[2020-10-28] MEDS ORDERED: LORazepam 2 MG/ML, 1ML ONE (17:36)
[2020-10-28 17:44] LABS: BASOPHILS % (AUTO) 1 % (0-1); EOSINOPHILS % (AUTO) 0 % (1-7); LYMPHOCYTES % (AUTO) 9 % (22-44); MEAN CORPUSCULAR HEMOGLOBIN 31.6 pg (27.5-34.5); MEAN CORPUSCULAR HGB CONC 34.1 g/dL (33.2-36.2); MEAN PLATELET VOLUME 7.6 fL (7.4-10.4); MONOCYTES % (AUTO) 7 % (2-9); NEUTROPHILS % (AUTO) 83 % (42-75); PLATELET COUNT 177 x10^3/uL (130-400); RED BLOOD COUNT 5.07 x10^6/uL (4.38-5.82); RED CELL DISTRIBUTION WIDTH 13.2 % (9.4-14.8)
[2020-10-28 17:49] LABS: MD NO
[2020-10-28 17:55] LABS: ALBUMIN 4.1 g/dL (3.4-5.0); ANION GAP 7 mmol/L (5-15); CALCIUM 8.7 mg/dL (8.5-10.1); CHLORIDE 106 mmol/L (98-107)
[2020-10-28 17:59] LABS: ALANINE AMINOTRANSFERASE 51 U/L (12-78); ALKALINE PHOSPHATASE 77 U/L (45-117); BILIRUBIN,TOTAL 0.2 mg/dL (0.2-1.0); CREATININE 0.86 mg/dL (0.7-1.3); TOTAL PROTEIN 8.4 g/dL (6.4-8.2)
[2020-10-28 18:20] VITALS: BP 111/74
--- NOTE | 2020-10-28 19:00 | NUR ---
REPORT TO TAMIE WOODS
== END 2020-10-28 19:37 | disposition home or self-care (01) ==
LOC: ED 17:49
DX: S00.83XA Contusion of other part of head, initial encounter (principal); R56.9 Unspecified convulsions; R51.9 Headache, unspecified; R41.0 Disorientation, unspecified; F17.200 Nicotine dependence, unspecified, uncomplicated; Z79.899 Other long term (current) drug therapy; X58.XXXA Exposure to other specified factors, initial encounter; Y93.89 Activity, other specified; Y92.89 Other specified places as the place of occurrence of the external cause; Y99.8 Other external cause status
CPT/HCPCS: 36415; 80053; 85025; 93005; 96374; 99284; J2060

== ENCOUNTER 2020-11-27 10:28 | Emergency (ER) | payer MEDICAID, OTHER ==
[~2020-11-27] VITALS: Ht 172.7 cm; Wt 80.5 kg
[2020-11-27 13:56] VITALS: BP 132/86
--- NOTE | 2020-11-27 13:56 | NUR ---
BREAK RN: PT WATCHING TV IN ROOM. VS STABLE. NO ACUTE DISTRESS NOTED. WILL CONTINUE TO MONITOR WHILE PRIMARY RN IS ON BREAK.
--- NOTE | 2020-11-27 14:28 | NUR ---
Patient given discharge instructions and they have confirmed that they understand the instructions. Patient ambulatory with steady gait.
== END 2020-11-27 14:30 | disposition home or self-care (01) ==
LOC: ED 12:45
DX: G40.909 Epilepsy, unspecified, not intractable, without status epilepticus (principal); F10.139 Alcohol abuse with withdrawal, unspecified; I10 Essential (primary) hypertension; J44.9 Chronic obstructive pulmonary disease, unspecified; F17.200 Nicotine dependence, unspecified, uncomplicated; Y90.0 Blood alcohol level of less than 20 mg/100 ml
CPT/HCPCS: 99281

== ENCOUNTER 2020-11-28 10:06 | Emergency (ER) | payer MEDICAID ==
[~2020-11-28] VITALS: Ht 172.7 cm; Wt 75.0 kg
[2020-11-28] MEDS ORDERED: LEVETIRACETAM 1,000 MG in SODIUM CHLORIDE 0.9% 100 ML IV ONE (10:30)
[2020-11-28 10:48] LABS: BASOPHILS % (AUTO) 1 % (0-1); EOSINOPHILS % (AUTO) 1 % (1-7); LYMPHOCYTES % (AUTO) 18 % (22-44); MEAN CORPUSCULAR HEMOGLOBIN 31.5 pg (27.5-34.5); MEAN CORPUSCULAR HGB CONC 33.9 g/dL (33.2-36.2); MEAN PLATELET VOLUME 7.8 fL (7.4-10.4); MONOCYTES % (AUTO) 9 % (2-9); NEUTROPHILS % (AUTO) 72 % (42-75); PLATELET COUNT 212 x10^3/uL (130-400); RED BLOOD COUNT 4.82 x10^6/uL (4.38-5.82); RED CELL DISTRIBUTION WIDTH 13.4 % (9.4-14.8)
[2020-11-28 10:49] LABS: MD NO
--- NOTE | 2020-11-28 10:51 | NUR ---
Pt alert and oriented, talking. states aura is feeling faint and "no" is repeated over and over again. No signs at this time. Pt on the monitor. Seizure pads in place.
[2020-11-28 11:20] VITALS: BP 104/67
[2020-11-28 11:35] LABS: ALBUMIN 3.8 g/dL (3.4-5.0); ANION GAP 6 mmol/L (5-15); CALCIUM 8.6 mg/dL (8.5-10.1); CHLORIDE 105 mmol/L (98-107); CREATININE 0.58 mg/dL (0.7-1.3)
== END 2020-11-28 12:23 | disposition home or self-care (01) ==
LOC: ED 11:23
DX: G40.319 Generalized idiopathic epilepsy and epileptic syndromes, intractable, without status epilepticus (principal); R55 Syncope and collapse; J44.9 Chronic obstructive pulmonary disease, unspecified; I10 Essential (primary) hypertension
CPT/HCPCS: 36415; 80048; 82040; 85025; 93005; 96365; 99284; J1953

== ENCOUNTER 2020-12-02 17:16 | Emergency (ER) | payer MEDICAID ==
[~2020-12-02] VITALS: Ht 172.7 cm; Wt 82.0 kg
[2020-12-02 17:31] VITALS: BP 129/101
--- NOTE | 2020-12-02 17:37 | NUR ---
CHRISTIANE FOR CC OF SEIZURE ACTIVITY. PT LIVES AT [facility], STATES HE HAD A SEIZURE WHILE USING [id number]. 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 NO POSTICTAL STAGE NOTED BY EMS AND NO LOSS OF BLADDER. PT STATES HE DIDN'T HAVE HIS KEPPRA MEDS FOR A WHILE AND TWO DAYS AGO WAS ABLE TO GET THEM. PT HAS MEDICATIONS WITH HIM, FILLED 11/30/20. DR. MAGANA AT BEDSIDE.
[2020-12-03] MEDS ORDERED: MECL-101 PO (11:04)
== END 2020-12-02 18:03 | disposition home or self-care (01) ==
LOC: ED 17:20
DX: R56.9 Unspecified convulsions (principal); R51.9 Headache, unspecified; I10 Essential (primary) hypertension; J44.9 Chronic obstructive pulmonary disease, unspecified; F17.200 Nicotine dependence, unspecified, uncomplicated
CPT/HCPCS: 99283

== ENCOUNTER 2020-12-03 10:51 | Emergency (ER) | payer MEDICAID ==
[~2020-12-03] VITALS: Ht 172.7 cm; Wt 82.0 kg
[2020-12-03 10:58] VITALS: BP 116/85
[2020-12-03] MEDS ORDERED: MECL-101 PO (11:04)
--- NOTE | 2020-12-03 11:25 | NUR ---
PT TOOK OWN MECLIZINE PRIOR TO DISCHARGE FOR REPORT OF "ROOM SPINNING". DC INSTRUCT PROVIDED.
--- NOTE | 2020-12-03 11:44 | NUR ---
PT TO DC DESK VIA WC, BUS PASS PROVIDED. PT AMBULATORY WITH STEADY GAIT FROM ER.
== END 2020-12-03 11:45 | disposition home or self-care (01) ==
LOC: ED 10:57
DX: R56.9 Unspecified convulsions (principal); R55 Syncope and collapse; J44.9 Chronic obstructive pulmonary disease, unspecified; F17.200 Nicotine dependence, unspecified, uncomplicated
CPT/HCPCS: 93005; 99283

== ENCOUNTER 2020-12-04 13:45 | Emergency (ER) | payer MEDICAID ==
[~2020-12-04] VITALS: Ht 172.7 cm; Wt 85.0 kg
[~2020-12-04 13:45] MED LIST changes: +MECL-101 PO
[2020-12-04 13:46] VITALS: BP 112/69
--- NOTE | 2020-12-04 13:53 | NUR ---
PATIENT BIB EMS WITH CHIEF C/O SEIZURES. PER EMS PATIENT HAS HAD 2 SEIZURES TODAY. HAS HISTORY OF SEIZURES, TAKES KEPPRA. VSS EN ROUTE, BLOOD SUGAR 120. UPON ASSESSMENT PATIENT IS IN NAD, VSS, REPORTS SEIZURES X2 TODAY, STATES HE IS COMPLIANT WITH HIS SEIZURE MEDS. REPORTS DRINKING "SOME VODKA AND A BEER TODAY." DENIES DRUG USE. CONNECTED TO MONITORS, SIDE RAILS UP X2, SEIZURE PRECAUTIONS IN PLACE, CALL LIGHT WITHIN REACH.
--- NOTE | 2020-12-04 14:00 | NUR ---
ERP TO BEDSIDE- TO D/C SHORTLY PATIENT WALKED TO RESTROOM, PROVIDED WITH PO FLUIDS WHICH HE TOLERATED WELL PATIENT WALKED TO LOBBY BEFORE PAPERWORK COULD BE SIGNED
== END 2020-12-04 14:41 | disposition home or self-care (01) ==
LOC: ED 14:25
DX: G40.919 Epilepsy, unspecified, intractable, without status epilepticus (principal); F10.129 Alcohol abuse with intoxication, unspecified; I10 Essential (primary) hypertension; K21.9 Gastro-esophageal reflux disease without esophagitis; Y90.0 Blood alcohol level of less than 20 mg/100 ml
CPT/HCPCS: 93005; 99283

== ENCOUNTER 2020-12-05 09:30 | Emergency (ER) | payer MEDICAID ==
[~2020-12-05] VITALS: Ht 172.7 cm; Wt 80.0 kg
[2020-12-05 09:33] VITALS: BP 128/74
--- NOTE | 2020-12-05 09:37 | NUR ---
PT ELIJAHA FROM [facility] FOR SZ. PT STATES HAPPENED IN BED AT 0800 AND LASTED 3-4 MINUTES. PT C/O HIGHTOWER. PT CALM, COOPERATIVE, APPROPRIATE TO STAFF. MONITORS IN PLACE. CALL LIGHT WITHIN REACH.
--- NOTE | 2020-12-05 10:07 | NUR ---
PT AMBULATORY TO BR WITH UPRIGHT STEADY GAIT
[2020-12-05] MEDS ORDERED: CHLORDIAZEPOXIDE 25 MG CAPSULE PO ONE (10:17)
[2020-12-05] MEDS ORDERED: CHLORDIAZEPOXIDE 25 MG CAPSULE ONE (10:31)
--- NOTE | 2020-12-05 10:45 | NUR ---
Patient given discharge instructions and they have confirmed that they understand the instructions. Patient ambulatory with steady gait.
== END 2020-12-05 10:47 | disposition home or self-care (01) ==
LOC: ED 09:52
DX: R56.9 Unspecified convulsions (principal); F10.239 Alcohol dependence with withdrawal, unspecified; Y90.0 Blood alcohol level of less than 20 mg/100 ml
CPT/HCPCS: 93005; 99283

== ENCOUNTER 2020-12-06 09:09 | Emergency (ER) | payer MEDICAID ==
[~2020-12-06] VITALS: Ht 172.7 cm; Wt 80.0 kg
[2020-12-06 09:11] VITALS: BP 128/88
== END 2020-12-06 09:40 | disposition home or self-care (01) ==
LOC: ED 09:25
DX: G40.919 Epilepsy, unspecified, intractable, without status epilepticus (principal); I10 Essential (primary) hypertension; J44.9 Chronic obstructive pulmonary disease, unspecified; F17.210 Nicotine dependence, cigarettes, uncomplicated
CPT/HCPCS: 93005; 99283

== ENCOUNTER 2020-12-09 09:43 | Emergency (ER) | payer MEDICAID ==
[~2020-12-09] VITALS: Ht 172.7 cm; Wt 83.0 kg
--- NOTE | 2020-12-09 09:45 | NUR ---
Pt able to disrobe slowly with steady stance while standing to take off pants/shoes, placed on monitor including EKG and small appliance assembly supervisor completed. Sz precautions in place, call light in reach, and warm blankets provided.
[2020-12-09] MEDS ORDERED: TOPI25TA8 PO (10:06)
--- NOTE | 2020-12-09 10:23 | NUR ---
Pt calling for food and drink tower air traffic control specialist light. Upon entering room, pt hands me a urinal with 125mL dark yellow uop which was emptied and urinal returned with lid on for future use. Pt updated to CT of head needed prior to orders for food/drink and states understanding of this.
--- NOTE | 2020-12-09 10:30 | NUR ---
Pt [facility] to CT by device repair technician [facility]
--- NOTE | 2020-12-09 10:38 | NUR ---
Pt returned from CT via gurney with sz pads still in place on railings and without acute changes per tablet technician while off unit. PA requested for orders to be able to feed/water pt made.
--- NOTE | 2020-12-09 11:05 | NUR ---
Crackers with peanut butter and water provided while awaiting d/c paperwork. Pt getting dressed into his own clothing in anticipation of d/c.
[2020-12-09 11:25] VITALS: BP 97/42
--- NOTE | 2020-12-09 11:25 | NUR ---
Pt ambulatory with steady gait out of room with task RN to d/c desk.
== END 2020-12-09 11:27 | disposition home or self-care (01) ==
LOC: ED 09:47
DX: S09.90XA Unspecified injury of head, initial encounter (principal); J44.9 Chronic obstructive pulmonary disease, unspecified; F17.210 Nicotine dependence, cigarettes, uncomplicated; G40.909 Epilepsy, unspecified, not intractable, without status epilepticus; X58.XXXA Exposure to other specified factors, initial encounter; Y93.89 Activity, other specified; Y92.89 Other specified places as the place of occurrence of the external cause; Y99.8 Other external cause status
CPT/HCPCS: 70450; 99284

== ENCOUNTER 2020-12-11 12:18 | Emergency (ER) | payer MEDICAID ==
[~2020-12-11] VITALS: Ht 172.7 cm; Wt 84.0 kg
[~2020-12-11 12:18] MED LIST changes: +TOPI25TA8 PO
[2020-12-11 12:22] VITALS: BP 118/68
--- NOTE | 2020-12-11 12:24 | NUR ---
PATIENT BIB EMS WITH CHIEF C/O SEIZURE. PER EMS PATIENT PICKED UP FROM [facility] AFTER HIS LEG STARTED SHAKING AND HE FELT LIKE HE WAS GOING TO HAVE A SEIZURE. NO LOC, PER EMS NO INTERVENTIONS EN ROUTE. VSS. PATIENT STATES HIS LEFT LEG WAS "JERKING AND I STARTED SAYING NO TO STOP IT." NADN, CONNECTED TO MONITORS, VSS, CALL LIGHT WITHIIN REACH.
--- NOTE | 2020-12-11 13:15 | NUR ---
PT WANTING TO LEAVE. MD AWARE.
== END 2020-12-11 13:27 | disposition home or self-care (01) ==
LOC: ED 12:39
DX: G40.909 Epilepsy, unspecified, not intractable, without status epilepticus (principal); F10.139 Alcohol abuse with withdrawal, unspecified; I10 Essential (primary) hypertension; F17.200 Nicotine dependence, unspecified, uncomplicated; Y90.0 Blood alcohol level of less than 20 mg/100 ml
CPT/HCPCS: 99283

== ENCOUNTER 2020-12-14 18:21 | Emergency (ER) | payer MEDICAID ==
[~2020-12-14] VITALS: Ht 175.3 cm; Wt 80.0 kg
--- NOTE | 2020-12-14 18:30 | NUR ---
THIS IS A 55 YEAR OLD MALE WHO WAS BIB BY AMBULANCE DUE TO ETOH AND POSSIBLE SEIZURE ACTIVITY. PT DENIES SI/SA. ASSISTED PT TO BATHROOM GAIT SLOW AND UNSTEADY, BACK TO BED, PLACED SEIZURE PADS ON RAILS X 2. PT STATES HE DRANK 5TH OF TEQUILLA AND A LITER OF VODKA.
--- NOTE | 2020-12-14 18:53 | NUR ---
RECEIVED BS REPORT FROM TAMIE GALDAMEZ TO ASSUME CARE OF PT. AT THIS TIME. PT. SITTING UP ON GURNEY EATING SANDWICH PROVIDED. PT. DENIES NEEDS AT THIS TIME. NO DISTRESS NOTED. +ETOH.
--- NOTE | 2020-12-14 18:53 | NUR ---
PT EATING A MEAL, REPORT TO GILDA WILLETT, PLAN OF CARE DISCUSSED
--- NOTE | 2020-12-14 19:29 | NUR ---
PT. ATE ALL OF SANDWICH THAT WAS PROVIDED. PT. ATTEMPTED TO GET UP TO SIDE OF BED TO USE URINAL. PT. VERY UNSTEADY ON HIS FEET AND ASSISTED BACK TO [facility] BY THIS RN. SPO2 MONITOR REPLACED. ALL SAFETY MEASURES OBSERVED.
--- NOTE | 2020-12-14 19:53 | NUR ---
RN FOUND PT. AMBULATING IN [place] TO BR. PT. WITH STEADY GAIT AT THIS TIME. PT. UNHOOKED ALL MONITORS AND WALKED TO BR WITH THE URINAL FROM THE BS IN HIS HAND. PT. TO BE D/C.
[2020-12-14 19:54] VITALS: BP 102/68
== END 2020-12-14 20:01 | disposition home or self-care (01) ==
LOC: ED 18:37
DX: F10.220 Alcohol dependence with intoxication, uncomplicated (principal); Y90.0 Blood alcohol level of less than 20 mg/100 ml; J44.9 Chronic obstructive pulmonary disease, unspecified; I10 Essential (primary) hypertension
CPT/HCPCS: 99283

== ENCOUNTER 2020-12-19 23:39 | Emergency (ER) | payer MEDICAID ==
[~2020-12-19] VITALS: Ht 172.7 cm; Wt 71.3 kg
[2020-12-20 02:33] VITALS: BP 120/73
--- NOTE | 2020-12-20 02:33 | NUR ---
pt stated he has had dark stools for the last 4 days that resolved tonight
[2020-12-20 02:35] LABS: BASOPHILS % (AUTO) 1 % (0-1); EOSINOPHILS % (AUTO) 2 % (1-7); LYMPHOCYTES % (AUTO) 24 % (22-44); MEAN CORPUSCULAR HEMOGLOBIN 32.1 pg (27.5-34.5); MEAN CORPUSCULAR HGB CONC 34.1 g/dL (33.2-36.2); MEAN PLATELET VOLUME 7.9 fL (7.4-10.4); MONOCYTES % (AUTO) 10 % (2-9); NEUTROPHILS % (AUTO) 64 % (42-75); PLATELET COUNT 221 x10^3/uL (130-400); RED BLOOD COUNT 4.88 x10^6/uL (4.38-5.82); RED CELL DISTRIBUTION WIDTH 14.6 % (9.4-14.8)
[2020-12-20 02:36] LABS: MD NO
[2020-12-20 02:43] LABS: ALANINE AMINOTRANSFERASE 46 U/L (12-78); ALBUMIN 4.2 g/dL (3.4-5.0); ANION GAP 7 mmol/L (5-15); CALCIUM 8.9 mg/dL (8.5-10.1); CHLORIDE 105 mmol/L (98-107); CREATININE 0.76 mg/dL (0.7-1.3)
[2020-12-20 02:45] LABS: ALKALINE PHOSPHATASE 78 U/L (45-117); BILIRUBIN,TOTAL 0.6 mg/dL (0.2-1.0); TOTAL PROTEIN 8.3 g/dL (6.4-8.2)
== END 2020-12-20 03:59 | disposition home or self-care (01) ==
LOC: ED 12-20 00:09
DX: G40.309 Generalized idiopathic epilepsy and epileptic syndromes, not intractable, without status epilepticus (principal); Z72.9 Problem related to lifestyle, unspecified; I10 Essential (primary) hypertension; J44.9 Chronic obstructive pulmonary disease, unspecified; F17.210 Nicotine dependence, cigarettes, uncomplicated
CPT/HCPCS: 36415; 80053; 80320; 85025; 99406; G0480

== ENCOUNTER 2020-12-20 12:44 | Emergency (ER) | payer MEDICAID ==
[~2020-12-20] VITALS: Ht 172.7 cm; Wt 79.0 kg
[2020-12-20 12:51] VITALS: BP 151/108
--- NOTE | 2020-12-20 13:20 | NUR ---
NO D/C PAPERWORK PER PRODUCTION OPERATIONS MANAGER PT DENIED NEEDING ANYTHING AND ASKED FOR A BUS PASS. PT WAS HERE LAST NIGHT, PT DENIED RECEIVING BUS PASS FROM THAT VISIT. PT WAS INFORMED THIS CANNOT BE A REGULAR OCCURENCE AND WAS PROVIDED A BUS PASS. PT AMBULATED
== END 2020-12-20 13:24 | disposition home or self-care (01) ==
LOC: ED 13:23
DX: G40.419 Other generalized epilepsy and epileptic syndromes, intractable, without status epilepticus (principal); Z72.9 Problem related to lifestyle, unspecified; J44.9 Chronic obstructive pulmonary disease, unspecified; I10 Essential (primary) hypertension
CPT/HCPCS: 93005; 99283

== ENCOUNTER 2020-12-23 06:38 | Emergency (ER) | payer MEDICAID ==
[~2020-12-23] VITALS: Ht 172.7 cm; Wt 77.8 kg
[2020-12-23 06:43] VITALS: BP 105/70
--- NOTE | 2020-12-23 07:04 | NUR ---
PT C/O RIGHT KNEE PAIN. PT STATES HE FELT IT "POP" AND THEN IT HURT. HE FELT A SECOND "POP" AND IT FELT BETTER, BUT HE IS WORRIED IT MAY BE INJURED.
--- NOTE | 2020-12-23 07:20 | NUR ---
PT REC'VD DISCHARGE INSTRUCTIONS AND EDUCATION. PT HAD NO QUESTIONS. PT GIVEN BUS PASS. PT AMBULATED TO DC AREA, STEADY GAIT.
== END 2020-12-23 07:28 | disposition home or self-care (01) ==
LOC: ED 06:59
DX: M25.561 Pain in right knee (principal); F17.210 Nicotine dependence, cigarettes, uncomplicated
CPT/HCPCS: 99282; 99406

== ENCOUNTER 2020-12-27 19:52 | Emergency (ER) | payer MEDICAID ==
[~2020-12-27] VITALS: Ht 172.7 cm; Wt 78.6 kg
[2020-12-27 20:01] VITALS: BP 151/92
--- NOTE | 2020-12-27 20:14 | NUR ---
THIS IS A 55M WELL KNOWN TO ED, PRESENTS TODAY W/ C/O "SHITTING BLOOD MAN" X2DAYS. PT STS IT'S DARK, DOES NOT REPORT INCONTINENCE. PT RESTING ON BED COMFORTABLY.
--- NOTE | 2020-12-27 20:33 | NUR ---
PT DEPARTED ED PER DOOR STAFF
== END 2020-12-27 20:34 | disposition left against medical advice (07) ==
LOC: ED 20:07
DX: K62.5 Hemorrhage of anus and rectum (principal); R10.10 Upper abdominal pain, unspecified; I10 Essential (primary) hypertension; G40.909 Epilepsy, unspecified, not intractable, without status epilepticus; J44.9 Chronic obstructive pulmonary disease, unspecified; F17.210 Nicotine dependence, cigarettes, uncomplicated
CPT/HCPCS: 99406

== ENCOUNTER 2020-12-28 07:26 | Emergency (ER) | payer MEDICAID ==
[~2020-12-28] VITALS: Ht 172.7 cm; Wt 78.2 kg
[2020-12-28 07:31] VITALS: BP 113/82
--- NOTE | 2020-12-28 07:45 | NUR ---
assumed care of pt. attempted to begin patint assessment, attempted to get patient to change into a gown for evaluation, pt refuses. pt states that he does not want to be here and does not want a medical evaluation. pt reports that he is aware that he had a seizure and that he has a hx of same. pt is A&Ox4, no obvious injury. ambualtory without assist. attemtped to discuss potential pending MD vance, pt reports that he want to leave. pt given AMA form
== END 2020-12-28 08:09 | disposition left against medical advice (07) ==
LOC: ED 07:45
DX: R56.9 Unspecified convulsions (principal); Z53.21 Procedure and treatment not carried out due to patient leaving prior to being seen by health care provider

== ENCOUNTER 2020-12-30 15:35 | Emergency (ER) | payer MEDICAID ==
[~2020-12-30] VITALS: Ht 172.7 cm; Wt 77.3 kg
[2020-12-30 16:09] VITALS: BP 118/77
== END 2020-12-30 16:59 | disposition left against medical advice (07) ==
LOC: ED 16:50
DX: R56.9 Unspecified convulsions (principal); Z53.21 Procedure and treatment not carried out due to patient leaving prior to being seen by health care provider

== ENCOUNTER 2021-01-01 09:56 | Emergency (ER) | payer MEDICAID ==
[~2021-01-01] VITALS: Ht 172.7 cm; Wt 76.3 kg
[2021-01-01] MEDS ORDERED: TOPI25TA52 PO (10:17)
[2021-01-01] MEDS ORDERED: LEVE10007 PO (10:17)
[2021-01-01] MEDS ORDERED: QUET200T PO (10:17)
[2021-01-01] MEDS ORDERED: PALI117D IM (10:17)
--- NOTE | 2021-01-01 10:20 | NUR ---
C/O LT KNEE AND FOOT PAIN. REPORTS PAIN STARTED "A LONG TIME AGO, BUT IT'S WORSE" REPORTS FALLING YESTERDAY DURING A SEIZURE. LAST DOSE OF KEPPRA ABOUT 5 DAYS AGO. STATES HE WAS AT [facility] RECENTLY, BUT LEFT AMA. AUDIBLE POPPING SOUND NOTED W/ KNEE FLEXION/EXTENSION, LIMITED ROM LT KNEE & ANKLE DUE TO PAIN. PEDAL PULSES STRONG & REG BILAT. NO PAIN MED TAKEN TODAY.
[2021-01-01 10:24] VITALS: BP 121/70
--- NOTE | 2021-01-01 11:19 | NUR ---
LATE ENTRY: CORRECTION TO PHYSICAL ASSESSMENT: PAIN IN RIGHT KNEE AND ANKLE.
--- NOTE | 2021-01-01 11:26 | NUR ---
RESTING QUIETLY ON GURNEY; AWAITING TEST RESULTS & DISPOSITION.
--- NOTE | 2021-01-01 12:06 | NUR ---
WRITTEN DC INSTRUCTIONS DISCUSSED W/ PT. PT REQUESTING TYLENOL OR MOTRIN PRIOR TO DC. WILL NOTIFY ERP.
--- NOTE | 2021-01-01 12:36 | NUR ---
PT LEFT BEFORE GETTING ORDER FOR PAIN MED.
== END 2021-01-01 12:38 | disposition home or self-care (01) ==
LOC: ED 10:46
DX: S93.601A Unspecified sprain of right foot, initial encounter (principal); S83.91XA Sprain of unspecified site of right knee, initial encounter; J44.9 Chronic obstructive pulmonary disease, unspecified; I10 Essential (primary) hypertension; X58.XXXA Exposure to other specified factors, initial encounter; Y93.89 Activity, other specified; Y92.009 Unspecified place in unspecified non-institutional (private) residence as the place of occurrence of the external cause; Y99.8 Other external cause status
CPT/HCPCS: 99284

== ENCOUNTER 2021-01-04 16:05 | Emergency (ER) | payer MEDICAID ==
[~2021-01-04] VITALS: Ht 172.7 cm; Wt 77.0 kg
[~2021-01-04 16:05] MED LIST changes: +LEVE10007 PO; +PALI117D IM; +QUET200T PO; +TOPI25TA52 PO
[2021-01-04 16:15] VITALS: BP 115/74
--- NOTE | 2021-01-04 16:51 | NUR ---
PT LEFT WITHOUT BEING SEEN
== END 2021-01-04 16:53 ==
LOC: ED 16:45
DX: R56.9 Unspecified convulsions (principal)
CPT/HCPCS: 99281

== ENCOUNTER 2021-01-05 07:17 | Emergency (ER) | payer MEDICAID ==
[~2021-01-05] VITALS: Ht 172.7 cm; Wt 76.6 kg
[2021-01-05 07:19] VITALS: BP 121/75
--- NOTE | 2021-01-05 08:08 | NUR ---
it administrative assistant: pt not in lobby
--- NOTE | 2021-01-05 08:15 | NUR ---
excellence leader: pt not in lobby
--- NOTE | 2021-01-05 08:25 | NUR ---
bottle line worker: no answer in lobby
== END 2021-01-05 08:28 | disposition left against medical advice (07) ==
LOC: ED 08:22
DX: R56.9 Unspecified convulsions (principal); Z53.21 Procedure and treatment not carried out due to patient leaving prior to being seen by health care provider

== ENCOUNTER 2021-01-05 12:43 | Emergency (ER) | payer MEDICAID ==
--- NOTE | 2021-01-05 13:01 | NUR ---
CALLED FOR PT. PT NOT IN LOBBY
--- NOTE | 2021-01-05 13:22 | NUR ---
CALLED FOR PT. PT NOT IN LOBBY
--- NOTE | 2021-01-05 14:23 | NUR ---
CALLED FOR PT. PT NOT IN LOBBY
== END 2021-01-05 16:58 | disposition left against medical advice (07) ==
LOC: ED 13:46
DX: R06.02 Shortness of breath (principal); Z53.21 Procedure and treatment not carried out due to patient leaving prior to being seen by health care provider

== ENCOUNTER 2021-01-07 04:39 | Emergency (ER) | payer MEDICAID ==
[~2021-01-07] VITALS: Ht 172.7 cm; Wt 77.8 kg
[2021-01-07 04:43] VITALS: BP 118/79
--- NOTE | 2021-01-07 04:49 | NUR ---
EKG DONE IN TRIAGE
== END 2021-01-07 05:31 | disposition left against medical advice (07) ==
LOC: ED 04:45
DX: R56.9 Unspecified convulsions (principal); Z53.21 Procedure and treatment not carried out due to patient leaving prior to being seen by health care provider
CPT/HCPCS: 93005

== ENCOUNTER 2021-01-16 09:53 | Emergency (ER) | payer MEDICAID ==
[~2021-01-16] VITALS: Ht 177.8 cm; Wt 75.0 kg
[2021-01-16 09:58] VITALS: BP 120/70
--- NOTE | 2021-01-16 10:05 | NUR ---
PT BIB [facility]. PT STATED THAT HE HAD ANOTHER SEIZURE. PT AOX4, VSS,
--- NOTE | 2021-01-16 10:46 | NUR ---
DISCHARGE INSTRUCTIONS REVIEWED WITH PT. ALL QUESTIONS ANSWERED AT THIS TIME.
== END 2021-01-16 10:48 | disposition home or self-care (01) ==
LOC: ED 10:25
DX: Z00.00 Encounter for general adult medical examination without abnormal findings (principal); R56.9 Unspecified convulsions; F17.210 Nicotine dependence, cigarettes, uncomplicated
CPT/HCPCS: 93005; 99406

== ENCOUNTER 2021-01-17 07:00 | Emergency (ER) | payer MEDICAID ==
[~2021-01-17] VITALS: Ht 172.7 cm; Wt 80.0 kg
--- NOTE | 2021-01-17 07:00 | NUR ---
PT BIBA FOR C/O SEIZURE AN HOUR AGO, UNWITNESSED. PT STATES HE TOOK HIS ANTI-SEIZURE MEDICATION BEFORE HIS SZ. PT AMBULATORY TO ROOM, MONITORS CONNECTED. CALL LIGHT WITHIN REACH. SZ PRECAUTIONS IN PLACE. PT A&OX4, JIHAN.
[2021-01-17 07:01] VITALS: BP 108/75
--- NOTE | 2021-01-17 07:11 | NUR ---
PA AT BS
--- NOTE | 2021-01-17 07:25 | NUR ---
Patient given discharge instructions and they have confirmed that they understand the instructions. Patient ambulatory with steady gait.
== END 2021-01-17 07:27 | disposition home or self-care (01) ==
LOC: ED 07:18
DX: Z00.00 Encounter for general adult medical examination without abnormal findings (principal); G40.909 Epilepsy, unspecified, not intractable, without status epilepticus; R55 Syncope and collapse; I10 Essential (primary) hypertension; J44.9 Chronic obstructive pulmonary disease, unspecified; F17.210 Nicotine dependence, cigarettes, uncomplicated
CPT/HCPCS: 99406

== ENCOUNTER 2021-01-17 12:31 | Emergency (ER) | payer MEDICAID ==
[2021-01-17 12:38] VITALS: BP 118/69
--- NOTE | 2021-01-17 12:38 | NUR ---
PT ARRIVED TO ER VIA AMBULANCE. PT LWBS PRIOR TO ANY TRIAGE.
== END 2021-01-17 12:40 | disposition left against medical advice (07) ==
LOC: ED 12:35
DX: F10.10 Alcohol abuse, uncomplicated (principal); Z53.21 Procedure and treatment not carried out due to patient leaving prior to being seen by health care provider; Y90.0 Blood alcohol level of less than 20 mg/100 ml

== ENCOUNTER 2021-01-18 06:47 | Emergency (ER) | payer MEDICAID ==
[~2021-01-18] VITALS: Ht 172.7 cm; Wt 85.0 kg
[2021-01-18 06:53] VITALS: BP 113/72
--- NOTE | 2021-01-18 06:58 | NUR ---
PT BIBA FOR SEIZURES, NO POST-ICTAL. HX OF SAME. PT DENIES ANY TRAUMA, STATES "I DO NOT WANT TO BED HERE". PT A&O, RESPS EVEN AND UNLABORED, JIHAN JARAMILLO. Addendum: 01/18/21 at 0725 by [email or web address] PT BIBA FOR SEIZURES, NO POST-ICTAL. HX OF SAME. PT DENIES ANY TRAUMA, STATES "I DO NOT WANT TO BED HERE AT THE HOSPITAL". PT A&O, RESPS EVEN AND UNLABORED, JIHAN JARAMILLO.
[2021-01-18] MEDS ORDERED: IBUPROFEN 600 MG TABLET ONE (07:19)
[2021-01-18] MEDS ORDERED: IBUPROFEN 200 MG TABLET PO ONE (07:30)
[2021-01-18] MEDS ORDERED: IBUPROFEN 600 MG TABLET PO ONE (07:30)
--- NOTE | 2021-01-18 07:36 | NUR ---
PT EDUCATED ON DISCHARGE INSTRUCTIONS, VERBALIZED UNDERSTANDING. AMBULATORY TO DISCHARGE WITH STEADY GAIT. JIHAN.
== END 2021-01-18 07:39 | disposition home or self-care (01) ==
LOC: ED 06:56
DX: G40.409 Other generalized epilepsy and epileptic syndromes, not intractable, without status epilepticus (principal); I10 Essential (primary) hypertension; J44.9 Chronic obstructive pulmonary disease, unspecified
CPT/HCPCS: 93005; 99283

== ENCOUNTER 2021-01-20 12:20 | Emergency (ER) | payer MEDICAID ==
[~2021-01-20] VITALS: Ht 165.1 cm; Wt 76.0 kg
[2021-01-20 12:23] VITALS: BP 115/67
--- NOTE | 2021-01-20 12:25 | NUR ---
PT PLACED IN LOBBY IN WC AFTER TRIAGE COMPLETED.
--- NOTE | 2021-01-20 13:13 | NUR ---
TASK RN. PT FOUND OUT OF WHEELCHAIR ON GROUND IN LOBBY, PT WAS WITNESSED FALING OUT OF WC. PT DID NOT HIT HEAD PER WITNESSES. PT BROUGHT BACK TO RM T2, PLACED ON GURNEY WITH SZ PRECAUTIONS IN PLACE. FALL PRECAUTIONS TAKEN. AWAITING ERMD ASSESSMENT.
--- NOTE | 2021-01-20 14:12 | NUR ---
PATIENT STATING HE IS READY TO LEAVE, FULLY DRESSED, ALL MONITORING EQUIPMENT TAKEN OFF BY PATIENT. STARTED WALKING PATIENT OUT, PATIENT AMBULATORY WITH STABLE GAIT. PATIENT THEN STATES "I CAN'T WALK, I'M GOING TO COLLAPSE, I CAN'T LEAVE YET." WALKED PATIENT BACK TO ROOM AND PATIENT IS NOW SITTING ON GURNEY.
--- NOTE | 2021-01-20 14:19 | NUR ---
PT GAIT STEADY, STATES HE WANTS TO GO, EXPLAINED THAT CM WILL CROSS CUT SAWYER AND CROSS CUT SAWYER TO NEUROLOGIST.
== END 2021-01-20 14:22 | disposition home or self-care (01) ==
LOC: ED 13:07
DX: G40.409 Other generalized epilepsy and epileptic syndromes, not intractable, without status epilepticus (principal); I10 Essential (primary) hypertension; J44.9 Chronic obstructive pulmonary disease, unspecified; F17.200 Nicotine dependence, unspecified, uncomplicated
CPT/HCPCS: 99283

== ENCOUNTER 2021-01-21 01:15 | Emergency (ER) | payer MEDICAID ==
[~2021-01-21] VITALS: Ht 172.7 cm; Wt 85.0 kg
[2021-01-21 01:18] VITALS: BP 92/68
--- NOTE | 2021-01-21 02:58 | NUR ---
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 TO ROOM FROM LOBBY AT THIS TIME.
[2021-01-21] MEDS ORDERED: LEVETIRACETAM 500 MG TABLET ONE (03:24)
[2021-01-21] MEDS ORDERED: LEVETIRACETAM 500 MG TABLET PO ONE (03:30)
== END 2021-01-21 03:34 | disposition home or self-care (01) ==
LOC: ED 02:27
DX: G40.919 Epilepsy, unspecified, intractable, without status epilepticus (principal); R55 Syncope and collapse; R94.31 Abnormal electrocardiogram [ECG] [EKG]; I10 Essential (primary) hypertension; J44.9 Chronic obstructive pulmonary disease, unspecified; F17.210 Nicotine dependence, cigarettes, uncomplicated
CPT/HCPCS: 93005; 99283; 99406

== ENCOUNTER 2021-01-21 09:49 | Emergency (ER) | payer MEDICAID ==
[~2021-01-21] VITALS: Ht 172.7 cm; Wt 75.7 kg
[2021-01-21 09:51] VITALS: BP 94/63
--- NOTE | 2021-01-21 10:43 | NUR ---
PATIENT ELOPED FROM LOBBY, PER SANITATION LEAD PATIENT LEFT FROM ED LOBBY AROUND [id number].
== END 2021-01-21 10:46 | disposition left against medical advice (07) ==
LOC: ED 10:44
DX: G40.909 Epilepsy, unspecified, not intractable, without status epilepticus (principal); M54.5 Low back pain; M54.6 Pain in thoracic spine
CPT/HCPCS: 99281

== ENCOUNTER 2021-01-21 11:56 | Emergency (ER) | payer MEDICAID ==
[~2021-01-21] VITALS: Ht 172.7 cm; Wt 78.0 kg
[2021-01-21 12:00] VITALS: BP 100/56
--- NOTE | 2021-01-21 12:31 | NUR ---
PatienT given discharge instructions and TAXI VOUCHER AND they have confirmed that they understand the instructions. Patient ambulatory with steady gait. NAD, all questions answered appropriately, denies additional needs at this time. No personal belongings left in room after discharge.
== END 2021-01-21 12:32 | disposition home or self-care (01) ==
LOC: ED 12:25
DX: F10.129 Alcohol abuse with intoxication, unspecified (principal); I10 Essential (primary) hypertension; F17.210 Nicotine dependence, cigarettes, uncomplicated; Y90.0 Blood alcohol level of less than 20 mg/100 ml
CPT/HCPCS: 99283

== ENCOUNTER 2021-01-22 09:24 | Emergency (ER) | payer MEDICAID ==
--- NOTE | 2021-01-22 09:30 | NUR ---
PT BECAME UPSET AT STAFF STATING "FINE I'LL JUST LEAVE THEN". PT TOOK OFF MONITORS AND WALKED OUT OF ROOM 4. UNABLE TO DO ASSESSMENT.
== END 2021-01-22 09:32 | disposition left against medical advice (07) ==
LOC: ED 09:31
DX: R56.9 Unspecified convulsions (principal); I10 Essential (primary) hypertension; J44.9 Chronic obstructive pulmonary disease, unspecified
CPT/HCPCS: 99283

== ENCOUNTER 2021-01-22 10:39 | Emergency (ER) | payer MEDICAID ==
[~2021-01-22] VITALS: Ht 170.2 cm; Wt 68.0 kg
--- NOTE | 2021-01-22 10:42 | NUR ---
Lani RN note: Pt standing in doorway of his room requesting to leave. This RN asked if the pt has been seen by the ERP yet. Pt reports "No, but it's taking too long." This RN advised pt that his arrival time was 1039 and it is now 1042 and that the ERP will be in as soon as they are able. Pt reports he will wait. Primary RN made aware.
--- NOTE | 2021-01-22 10:54 | NUR ---
bib ems from gas station for self reported seizure. pt axox4 and ambulatory upon arrival. upon arrival to er pt refuses any vital signs and states to rn that he just needs to pee. pt allowed time to urinate and stands by self at end of bed. pt then requests to go outside and smoke. pt wishes to leave despite disscussion regarding care. refusing to sign ama. security is contacted regarding pt and to escort pt off property.
== END 2021-01-22 10:57 | disposition home or self-care (01) ==
LOC: ED 10:41
DX: F10.129 Alcohol abuse with intoxication, unspecified (principal); J44.9 Chronic obstructive pulmonary disease, unspecified; G40.909 Epilepsy, unspecified, not intractable, without status epilepticus; F17.200 Nicotine dependence, unspecified, uncomplicated; Y90.0 Blood alcohol level of less than 20 mg/100 ml
CPT/HCPCS: 99283

== ENCOUNTER 2021-01-24 07:00 | Emergency (ER) | payer MEDICAID ==
[~2021-01-24] VITALS: Ht 172.7 cm; Wt 78.0 kg
[2021-01-24 07:11] VITALS: BP 134/94
--- NOTE | 2021-01-24 07:18 | NUR ---
PT BIB [facility], PT WITH SELF REPORTED "SHAKING AFTER I WENT OUT TO SMOKE THIS MORNING" PT WITH HX SEIZURES ON KEPPRA, STATES TAKING MEDS PRESCRIBED, DENIES ETOH. PT AMBULATORY TO RM WITH [facility], [facility] [address] FUEL PELLETIZER. ERMD IN TO EVAL PT. PT TO BP, CONT PULSE OX. NO NEED FOR CARD MONITOR PER ERMD. LABS ORDERED.
[2021-01-24] MEDS ORDERED: MULTIVITAMIN 1 TABLET PO ONE (07:30)
[2021-01-24 07:41] LABS: BASOPHILS % (AUTO) 1 % (0-1); EOSINOPHILS % (AUTO) 2 % (1-7); LYMPHOCYTES % (AUTO) 19 % (22-44); MEAN CORPUSCULAR HEMOGLOBIN 33.1 pg (27.5-34.5); MEAN CORPUSCULAR HGB CONC 34.5 g/dL (33.2-36.2); MEAN PLATELET VOLUME 7.3 fL (7.4-10.4); MONOCYTES % (AUTO) 9 % (2-9); NEUTROPHILS % (AUTO) 70 % (42-75); PLATELET COUNT 207 x10^3/uL (130-400); RED BLOOD COUNT 4.62 x10^6/uL (4.38-5.82); RED CELL DISTRIBUTION WIDTH 14.1 % (9.4-14.8)
[2021-01-24 07:50] LABS: ALANINE AMINOTRANSFERASE 47 U/L (12-78); ALBUMIN 3.8 g/dL (3.4-5.0); ANION GAP 9 mmol/L (5-15); CALCIUM 9.1 mg/dL (8.5-10.1); CHLORIDE 107 mmol/L (98-107); CREATININE 0.64 mg/dL (0.7-1.3)
[2021-01-24 08:06] LABS: ALKALINE PHOSPHATASE 75 U/L (45-117); BILIRUBIN,TOTAL 1.2 mg/dL (0.2-1.0)
== END 2021-01-24 08:12 | disposition left against medical advice (07) ==
LOC: ED 07:57
DX: F41.1 Generalized anxiety disorder (principal); R53.1 Weakness; I10 Essential (primary) hypertension; J44.9 Chronic obstructive pulmonary disease, unspecified; G40.909 Epilepsy, unspecified, not intractable, without status epilepticus; F17.200 Nicotine dependence, unspecified, uncomplicated
CPT/HCPCS: 36415; 80053; 80320; 82607; 83735; 85025; 99283; G0480

== ENCOUNTER 2021-01-24 15:41 | Emergency (ER) | payer MEDICAID ==
[~2021-01-24] VITALS: Ht 172.7 cm; Wt 76.3 kg
[2021-01-24 15:47] VITALS: BP 135/76
--- NOTE | 2021-01-24 16:06 | NUR ---
GROMMET MACHINE OPERATOR: PT SIGNED OUT AMA.
== END 2021-01-24 16:09 | disposition left against medical advice (07) ==
LOC: ED 15:55
DX: M79.671 Pain in right foot (principal); Z53.21 Procedure and treatment not carried out due to patient leaving prior to being seen by health care provider

== ENCOUNTER 2021-01-24 16:14 | Emergency (ER) | payer MEDICAID ==
[2021-01-24 16:55] VITALS: BP 135/76
== END 2021-01-24 17:01 | disposition home or self-care (01) ==
LOC: ED 16:55
DX: F10.129 Alcohol abuse with intoxication, unspecified (principal); R56.9 Unspecified convulsions; Y90.0 Blood alcohol level of less than 20 mg/100 ml
CPT/HCPCS: 99281

== ENCOUNTER 2021-01-25 16:10 | Emergency (ER) | payer MEDICAID ==
--- NOTE | 2021-01-25 16:12 | NUR ---
SURFACE GRINDER TENDER: PT WALKED OUT, GAIT STEADY
== END 2021-01-25 16:14 | disposition left against medical advice (07) ==
LOC: ED 16:12
DX: F10.20 Alcohol dependence, uncomplicated (principal); R56.9 Unspecified convulsions; I10 Essential (primary) hypertension; Y90.0 Blood alcohol level of less than 20 mg/100 ml
CPT/HCPCS: 99283

== ENCOUNTER 2021-01-28 03:30 | Emergency (ER) | payer MEDICAID ==
[~2021-01-28] VITALS: Ht 172.7 cm; Wt 78.5 kg
[2021-01-28 03:32] VITALS: BP 128/82
== END 2021-01-28 04:15 | disposition home or self-care (01) ==
LOC: ED 04:07
DX: G40.909 Epilepsy, unspecified, not intractable, without status epilepticus (principal); Z72.9 Problem related to lifestyle, unspecified; J44.9 Chronic obstructive pulmonary disease, unspecified
CPT/HCPCS: 99281

== ENCOUNTER 2021-01-30 22:40 | Emergency (ER) | payer MEDICAID ==
[~2021-01-30] VITALS: Ht 172.7 cm; Wt 78.0 kg
--- NOTE | 2021-01-30 22:55 | NUR ---
PT BIB [facility] FOR REPORTED SZ ACTIVITY. PT HAS HX OF SAME. VSS. PT INTOXICATED AT THIS TIME. PT PLACED ON MONITORS AND GIVEN URINAL. CALL LIGHT IN REACH
--- NOTE | 2021-01-30 23:19 | NUR ---
PT ASSISTED WITH URINAL. VSS. PT NOT STEADY ON FEET. WILL CONTINUE TO MONITOR
--- NOTE | 2021-01-31 01:15 | NUR ---
PT STANDING IN ROON DOORWAY STATING HE NEEDS TO URINATE. PT AMBULATED DOWN LNETZ AND BACK TO ROOM WITH A STEADY GAIT AND GOT BACK IN BED.
--- NOTE | 2021-01-31 01:59 | NUR ---
PT GIVEN DISCHARGE INSTRUCTIONS. PT PUT ON SHIRT AND WAS SITTING IN CHAIR. PT SAYS "I CANT WALK." PT REMINDED THAT HE JUST WALKED UNASSISTED TO BATHROOM. SECURITY CALLED TO ESCORT PT OUT.
[2021-01-31 02:01] VITALS: BP 110/59
== END 2021-01-31 02:02 | disposition home or self-care (01) ==
LOC: ED 22:45
DX: G40.909 Epilepsy, unspecified, not intractable, without status epilepticus (principal); F10.120 Alcohol abuse with intoxication, uncomplicated; G31.2 Degeneration of nervous system due to alcohol; I10 Essential (primary) hypertension; F17.200 Nicotine dependence, unspecified, uncomplicated; Z72.9 Problem related to lifestyle, unspecified
CPT/HCPCS: 93005; 99283

== ENCOUNTER 2021-01-31 07:20 | Emergency (ER) | payer MEDICAID ==
[~2021-01-31] VITALS: Ht 175.3 cm; Wt 75.0 kg
[2021-01-31 07:28] VITALS: BP 123/67
--- NOTE | 2021-01-31 07:33 | NUR ---
SEE TRIAGE. MULTIPLE VISITS TO THIS ED FOR SAME. PT STATES HE'S HUNGRY. BREAKFAST PROVIDED. CALL LIGHT WITHIN REACH.
== END 2021-01-31 07:49 | disposition home or self-care (01) ==
LOC: ED 07:40
DX: R56.9 Unspecified convulsions (principal); R53.1 Weakness; I10 Essential (primary) hypertension; J44.9 Chronic obstructive pulmonary disease, unspecified
CPT/HCPCS: 99283

== ENCOUNTER 2021-02-01 07:42 | Emergency (ER) | payer MEDICAID ==
[~2021-02-01] VITALS: Ht 172.7 cm; Wt 75.0 kg
[~2021-02-01 07:42] MED LIST changes: +OLAN10TA69 PO; -OLAN10TA9 PO; -QUET200T PO; +QUET200T2 PO
[2021-02-01 07:45] VITALS: BP 121/74
--- NOTE | 2021-02-01 07:57 | NUR ---
PT TO ROOM FROM TRIAGE, PT C/O SZ AT 0700 THIS MORNING, UNWITNESSED. PT STATES IT LASTED 3-5 MINUTES. NADN/VSS. CALL LIGHT WITHIN REACH
[2021-02-01] MEDS ORDERED: LEVETIRACETAM 500 MG TABLET ONE (08:21)
[2021-02-01] MEDS ORDERED: LEVETIRACETAM 500 MG TABLET PO ONE (08:30)
--- NOTE | 2021-02-01 08:35 | NUR ---
Patient given discharge instructions and they have confirmed that they understand the instructions. Patient ambulatory with steady gait.
== END 2021-02-01 08:37 | disposition home or self-care (01) ==
LOC: ED 08:11
DX: R56.9 Unspecified convulsions (principal); Z91.14 Patient's other noncompliance with medication regimen; F17.210 Nicotine dependence, cigarettes, uncomplicated
CPT/HCPCS: 99283

== ENCOUNTER 2021-02-06 09:12 | Emergency (ER) | payer MEDICAID ==
[~2021-02-06] VITALS: Ht 172.7 cm; Wt 70.0 kg
[~2021-02-06 09:12] MED LIST changes: -OLAN10TA69 PO; +OLAN10TA9 PO; +QUET200T PO; -QUET200T2 PO
[2021-02-06 09:20] VITALS: BP 118/71
--- NOTE | 2021-02-06 09:30 | NUR ---
PT BIB EMS FOR POSSIBLE SEIZURE ACTIVIT. PT STATES HE IS COMPLIANT W [place]. NO INJURIES. OR SEIZURE ACIVITY NOTICED
--- NOTE | 2021-02-06 10:27 | NUR ---
Patient given discharge instructions and they have confirmed that they understand the instructions. Patient ambulatory with steady gait.
== END 2021-02-06 10:30 | disposition home or self-care (01) ==
LOC: ED 10:24
DX: G40.909 Epilepsy, unspecified, not intractable, without status epilepticus (principal); I10 Essential (primary) hypertension
CPT/HCPCS: 93005; 99283

== ENCOUNTER 2021-02-08 06:46 | Emergency (ER) | payer MEDICAID ==
[~2021-02-08] VITALS: Ht 172.7 cm; Wt 76.2 kg
[2021-02-08 06:49] VITALS: BP 122/77
--- NOTE | 2021-02-08 07:35 | NUR ---
Patient given discharge instructions and bus pass and they have confirmed that they understand the instructions. Patient ambulatory with steady gait. NAD, all questions answered appropriately, denies additional needs at this time. No personal belongings left in room after discharge.
== END 2021-02-08 07:36 | disposition home or self-care (01) ==
LOC: ED 07:21
DX: R56.9 Unspecified convulsions (principal); I10 Essential (primary) hypertension; J44.9 Chronic obstructive pulmonary disease, unspecified; F17.200 Nicotine dependence, unspecified, uncomplicated
CPT/HCPCS: 99283

== ENCOUNTER 2021-02-09 07:43 | Emergency (ER) | payer MEDICAID ==
[~2021-02-09] VITALS: Ht 172.7 cm; Wt 73.7 kg
--- NOTE | 2021-02-09 07:50 | NUR ---
NO ANSWER FROM LOBBY X1.
[2021-02-09 07:52] VITALS: BP 113/73
--- NOTE | 2021-02-09 09:03 | NUR ---
MATERIAL FLOW ANALYST: PT SITTING BY CHARGE DESK FOR OBSERVATION.
== END 2021-02-09 09:15 | disposition home or self-care (01) ==
LOC: ED 08:22
DX: R55 Syncope and collapse (principal); J44.9 Chronic obstructive pulmonary disease, unspecified; I10 Essential (primary) hypertension; M10.9 Gout, unspecified; Z59.0 Homelessness
CPT/HCPCS: 99283

== ENCOUNTER 2021-02-10 08:15 | Emergency (ER) | payer MEDICAID ==
[~2021-02-10] VITALS: Ht 172.7 cm; Wt 74.0 kg
--- NOTE | 2021-02-10 08:31 | NUR ---
Pt walked back from triage with chief complaint of reported unwitnessed seizure. No complaints or neuro changes at this time. VSS. Seizure precautions in place.
[2021-02-10 08:45] VITALS: BP 123/78
== END 2021-02-10 09:24 | disposition home or self-care (01) ==
LOC: ED 09:10
DX: G40.409 Other generalized epilepsy and epileptic syndromes, not intractable, without status epilepticus (principal); J44.9 Chronic obstructive pulmonary disease, unspecified; I10 Essential (primary) hypertension
CPT/HCPCS: 99283

== ENCOUNTER 2021-02-27 06:26 | Emergency (ER) | payer MEDICAID ==
[~2021-02-27] VITALS: Ht 172.7 cm; Wt 74.0 kg
[~2021-02-27 06:26] MED LIST changes: +OLAN10TA69 PO; -OLAN10TA9 PO
--- NOTE | 2021-02-27 07:18 | NUR ---
PT AMBULATORY TO ROOM TR01 W/ C/O SZ HAPPENED TODAY AT 0600. PT STATES HE DOES TAKE SZ MEDS. STATES THAT HE HAS TRIED TO GET AN APPT W/ HIS NEUROLOGIST "BUT THEY DON'T HAVE ANY". PT STATES HE DOES NOT HAVE AN OFFICE FOR NEUROLOGY THAT HE GOES TO. PT RESTING ON GURNEY. NADN. MONITORS APPLIED. VSS. WARM BLANKET PROVIDED. CALL LIGHT IN REACH.
[2021-02-27 07:28] VITALS: BP 108/65
--- NOTE | 2021-02-27 07:37 | NUR ---
CHRIS ZAMUDIO ASSESSED PT AT BEDSIDE. PT STATES "I WANT TO LEAVE" ON ASSESSMENT. STATES "I WANT A BUS PASS SO I CAN LEAVE". PT AMBULATED TO DC DESK. PROVIDED W/ INFORMATION FOR Yasmeen
== END 2021-02-27 07:40 | disposition left against medical advice (07) ==
LOC: ED 06:44
DX: R56.9 Unspecified convulsions (principal); Z53.21 Procedure and treatment not carried out due to patient leaving prior to being seen by health care provider

== ENCOUNTER 2021-03-04 14:27 | Emergency (ER) | payer MEDICAID ==
[~2021-03-04] VITALS: Ht 172.7 cm; Wt 75.7 kg
[2021-03-04 14:36] VITALS: BP 145/81
--- NOTE | 2021-03-04 15:00 | NUR ---
PT AMBULATES FROM TRIAGE TO ROOM WITH STEADY GAIT.
--- NOTE | 2021-03-04 15:05 | NUR ---
PT WALKS STEADY GAIT TO ROOM T2
== END 2021-03-04 15:44 | disposition home or self-care (01) ==
LOC: ED 14:57
DX: G40.909 Epilepsy, unspecified, not intractable, without status epilepticus (principal); Z76.0 Encounter for issue of repeat prescription; M10.9 Gout, unspecified; J44.9 Chronic obstructive pulmonary disease, unspecified; I10 Essential (primary) hypertension; F17.210 Nicotine dependence, cigarettes, uncomplicated
CPT/HCPCS: 99283; 99406

== ENCOUNTER 2021-03-06 10:30 | Emergency (ER) | payer MEDICAID ==
[~2021-03-06] VITALS: Ht 170.2 cm; Wt 70.0 kg
--- NOTE | 2021-03-06 10:42 | NUR ---
PT CHRISTIANE FROM [facility]. PER EMS PT HAS RAN OUT OF KEPPRA AND NEEDS MORE. PT STATES LAST DRINK WAS 1 HOUR AGO. PER PT "I NEED MORE KEPPRA".
--- NOTE | 2021-03-06 10:54 | NUR ---
RECEIVED REPORT FROM HEATHER WILLETT. ASSUMING CARE AT THIS TIME.
[2021-03-06] MEDS ORDERED: LEVETIRACETAM 500 MG TABLET ONE (10:56)
[2021-03-06] MEDS ORDERED: LEVETIRACETAM 500 MG TABLET PO ONE (11:00)
--- NOTE | 2021-03-06 11:10 | NUR ---
PT TO BE MTF
--- NOTE | 2021-03-06 11:18 | NUR ---
GOVERNMENT DOCUMENTS LIBRARIAN PER OCT. PT KEEPS SITTING EDGE OF BED STATING HE NEEDS TO PEE, BUT CAN'T. MULTIPLE REDIRECTIONS TO GET PT BACK TO BED. PT STATING HE NEEDS TO GO TO HOSPITAL, REMINDED MULTIPLE TIMES HE IS IN THE HOSPITAL. TOOL AND DIE INSPECTOR AT BEDSIDE SITTER FOR PT SAFETY.
--- NOTE | 2021-03-06 11:28 | NUR ---
PT IS CONNECTED TO PULSE OX
--- NOTE | 2021-03-06 12:23 | NUR ---
PT SLEEPING ON GURNEY. RESP EVEN AND UNLABORED. BUILDING COMPONENTS DESIGNER CONTINUES AT BEDSIDE FOR SAFETY.
--- NOTE | 2021-03-06 13:41 | NUR ---
PT SLEEPING ON GURNEY. RESP EVEN AND UNLABORED. AIRBRUSH ARTIST PHOTOGRAPHY CONTINUES AT BEDSIDE FOR SAFETY.
--- NOTE | 2021-03-06 15:03 | NUR ---
PT AMBULATED TO RESTROOM WITH SHUFFLING BUT STEADY GAIT.
== END 2021-03-06 15:15 | disposition home or self-care (01) ==
LOC: ED 10:39
DX: F10.229 Alcohol dependence with intoxication, unspecified (principal); I10 Essential (primary) hypertension; G40.909 Epilepsy, unspecified, not intractable, without status epilepticus; Y90.0 Blood alcohol level of less than 20 mg/100 ml
CPT/HCPCS: 99283

== ENCOUNTER 2021-03-08 08:15 | Emergency (ER) | payer MEDICAID ==
[~2021-03-08] VITALS: Ht 172.7 cm; Wt 74.3 kg
[2021-03-08 08:43] VITALS: BP 112/80
--- NOTE | 2021-03-08 08:54 | NUR ---
walked back to room gait shuffling but steady. as
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
== END 2021-03-08 09:55 | disposition left against medical advice (07) ==
LOC: ED 09:50
DX: R56.9 Unspecified convulsions (principal); Z53.21 Procedure and treatment not carried out due to patient leaving prior to being seen by health care provider

== ENCOUNTER 2021-03-13 06:17 | Emergency (ER) | payer MEDICAID ==
[~2021-03-13] VITALS: Ht 172.7 cm; Wt 73.0 kg
--- NOTE | 2021-03-13 06:45 | NUR ---
report from TAMIE Cotton
[2021-03-13 06:53] VITALS: BP 132/87
[2021-03-13] MEDS ORDERED: LEVETIRACETAM 500 MG TABLET ONE (06:56)
[2021-03-13] MEDS ORDERED: LEVETIRACETAM 500 MG TABLET PO ONE (07:00)
--- NOTE | 2021-03-13 07:03 | NUR ---
PT RESTING ON GURNEY, NADN/VSS. PT MEDICATED PER EMAR. CALL LIGHT WITHIN REACH. SZ PRECAUTIONS IN PLACE.
--- NOTE | 2021-03-13 07:31 | NUR ---
Patient given discharge instructions and rx, they have confirmed that they understand the instructions. Patient ambulatory with steady gait.
== END 2021-03-13 07:33 | disposition home or self-care (01) ==
LOC: ED 06:20
DX: R56.9 Unspecified convulsions (principal); I10 Essential (primary) hypertension; Z91.14 Patient's other noncompliance with medication regimen
CPT/HCPCS: 99283

== ENCOUNTER 2021-03-13 20:47 | Emergency (ER) | payer MEDICAID ==
[~2021-03-13] VITALS: Ht 170.2 cm; Wt 68.8 kg
[2021-03-13 20:49] VITALS: BP 132/86
== END 2021-03-13 21:28 | disposition home or self-care (01) ==
LOC: ED 21:26
DX: Z00.00 Encounter for general adult medical examination without abnormal findings (principal); Z72.9 Problem related to lifestyle, unspecified; I10 Essential (primary) hypertension; J44.9 Chronic obstructive pulmonary disease, unspecified; G40.909 Epilepsy, unspecified, not intractable, without status epilepticus; F17.200 Nicotine dependence, unspecified, uncomplicated
CPT/HCPCS: 99283

== ENCOUNTER 2021-03-14 10:39 | Emergency (ER) | payer MEDICAID ==
[~2021-03-14] VITALS: Ht 172.7 cm; Wt 80.0 kg
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
[2021-03-14 11:22] VITALS: BP 116/69
== END 2021-03-14 11:42 | disposition home or self-care (01) ==
LOC: ED 11:12
DX: R56.9 Unspecified convulsions (principal); Z76.0 Encounter for issue of repeat prescription; I10 Essential (primary) hypertension; J44.9 Chronic obstructive pulmonary disease, unspecified; Z72.9 Problem related to lifestyle, unspecified
CPT/HCPCS: 99283

== ENCOUNTER 2021-03-19 18:04 | Emergency (ER) | payer MEDICAID ==
[~2021-03-19] VITALS: Ht 170.2 cm; Wt 72.0 kg
--- NOTE | 2021-03-19 18:34 | NUR ---
To room from [facility]
[2021-03-19] MEDS ORDERED: MAALOX/HYOSCYAMINE/LIDOCAINE 45 ML BTL PO ONE (19:30)
[2021-03-19 19:36] LABS: BASOPHILS % (AUTO) 1 % (0-1); EOSINOPHILS % (AUTO) 2 % (1-7); LYMPHOCYTES % (AUTO) 22 % (22-44); MEAN CORPUSCULAR HEMOGLOBIN 32.6 pg (27.5-34.5); MEAN CORPUSCULAR HGB CONC 34.1 g/dL (33.2-36.2); MEAN PLATELET VOLUME 7.6 fL (7.4-10.4); MONOCYTES % (AUTO) 9 % (2-9); NEUTROPHILS % (AUTO) 66 % (42-75); PLATELET COUNT 218 x10^3/uL (130-400); RED BLOOD COUNT 4.82 x10^6/uL (4.38-5.82); RED CELL DISTRIBUTION WIDTH 13.4 % (9.4-14.8)
[2021-03-19] MEDS ORDERED: MAALOX/HYOSCYAMINE/LIDOCAINE 45 ML BTL ONE (19:41)
[2021-03-19 19:47] LABS: CHLORIDE 103 mmol/L (98-107)
[2021-03-19 19:48] LABS: ALBUMIN 3.8 g/dL (3.4-5.0); ANION GAP 7 mmol/L (5-15); CALCIUM 9.3 mg/dL (8.5-10.1); CREATININE 0.69 mg/dL (0.7-1.3)
[2021-03-19 20:21] VITALS: BP 106/80
== END 2021-03-19 21:22 | disposition home or self-care (01) ==
LOC: ED 19:33
DX: K64.4 Residual hemorrhoidal skin tags (principal); G40.909 Epilepsy, unspecified, not intractable, without status epilepticus; I10 Essential (primary) hypertension; J44.9 Chronic obstructive pulmonary disease, unspecified; F17.210 Nicotine dependence, cigarettes, uncomplicated
CPT/HCPCS: 36415; 80048; 82040; 85025; 99283; 99406

== ENCOUNTER 2021-03-21 07:12 | Emergency (ER) | payer MEDICAID ==
[~2021-03-21] VITALS: Ht 172.7 cm; Wt 75.0 kg
[2021-03-21 07:17] VITALS: BP 127/82
== END 2021-03-21 07:39 | disposition home or self-care (01) ==
LOC: ED 07:31
DX: G40.309 Generalized idiopathic epilepsy and epileptic syndromes, not intractable, without status epilepticus (principal); I10 Essential (primary) hypertension; J44.9 Chronic obstructive pulmonary disease, unspecified; Z87.891 Personal history of nicotine dependence
CPT/HCPCS: 99283

== ENCOUNTER 2021-03-21 09:25 | Emergency (ER) | payer MEDICAID ==
[~2021-03-21] VITALS: Ht 172.7 cm; Wt 74.9 kg
[2021-03-21 09:29] VITALS: BP 128/70
== END 2021-03-21 11:39 | disposition left against medical advice (07) ==
LOC: ED 09:38
DX: G40.319 Generalized idiopathic epilepsy and epileptic syndromes, intractable, without status epilepticus (principal)
CPT/HCPCS: 99283

== ENCOUNTER 2021-03-22 06:21 | Emergency (ER) | payer MEDICAID ==
[~2021-03-22] VITALS: Ht 172.7 cm; Wt 77.3 kg
--- NOTE | 2021-03-22 06:24 | NUR ---
HEAD GREENSKEEPER: NIL X 1 WHEN CALLED FOR TRIAGE.
[2021-03-22 06:29] VITALS: BP 108/66
--- NOTE | 2021-03-22 06:43 | NUR ---
DR. ANGEL IN TRIAGE TO EVAL PT. AND DISCUSS POC. PT. PROVIDED WITH BUS PASS PER REQUEST AND PER MD VERBAL ORDER TO D/C WITH BUS PAS.
== END 2021-03-22 06:47 | disposition home or self-care (01) ==
LOC: ED 06:23
DX: G40.909 Epilepsy, unspecified, not intractable, without status epilepticus (principal); I10 Essential (primary) hypertension; F17.200 Nicotine dependence, unspecified, uncomplicated
CPT/HCPCS: 93005; 99283

== ENCOUNTER 2021-03-30 00:22 | Emergency (ER) | payer MEDICAID ==
[~2021-03-30] VITALS: Ht 172.7 cm; Wt 78.0 kg
[2021-03-30 00:29] VITALS: BP 109/68
--- NOTE | 2021-03-30 00:56 | NUR ---
Patient given discharge instructions and they have confirmed that they understand the instructions. Patient ambulatory with steady gait. NAD, all questions answered appropriately, denies additional needs at this time. No personal belongings left in room after discharge.
== END 2021-03-30 00:58 | disposition home or self-care (01) ==
LOC: ED 00:30
DX: G40.919 Epilepsy, unspecified, intractable, without status epilepticus (principal); F17.210 Nicotine dependence, cigarettes, uncomplicated; I10 Essential (primary) hypertension; J44.9 Chronic obstructive pulmonary disease, unspecified
CPT/HCPCS: 99283; 99406

== ENCOUNTER 2021-04-05 11:23 | Emergency (ER) | payer MEDICAID ==
[~2021-04-05] VITALS: Ht 172.7 cm; Wt 82.0 kg
[~2021-04-05 11:23] MED LIST changes: -QUET200T PO; +QUET200T2 PO
[2021-04-05 11:52] VITALS: BP 107/69
--- NOTE | 2021-04-05 13:44 | NUR ---
ATTEMPTED TO DC PT. PT NOT IN LOBBY
--- NOTE | 2021-04-05 14:55 | NUR ---
PULP PLANT SUPERVISOR: NO ANSWER
--- NOTE | 2021-04-05 15:00 | NUR ---
ROCK WOOL INSULATOR: CALLED PT NO ANSWER
[2021-04-05] MEDS ORDERED: LEVETIRACETAM 500 MG TABLET PO ONE (21:00)
== END 2021-04-05 15:01 | disposition left against medical advice (07) ==
LOC: ED 11:28
DX: G40.409 Other generalized epilepsy and epileptic syndromes, not intractable, without status epilepticus (principal); M25.561 Pain in right knee; I10 Essential (primary) hypertension; F17.200 Nicotine dependence, unspecified, uncomplicated
CPT/HCPCS: 93005; 99283

== ENCOUNTER 2021-04-15 08:53 | Emergency (ER) | payer MEDICAID ==
[~2021-04-15] VITALS: Ht 172.7 cm; Wt 82.0 kg
[2021-04-15 08:56] VITALS: BP 113/67
[2021-04-15] MEDS ORDERED: LEVETIRACETAM 500 MG TABLET PO ONE (09:30)
[2021-04-15] MEDS ORDERED: LEVETIRACETAM 500 MG TABLET ONE (09:35)
== END 2021-04-15 10:16 | disposition home or self-care (01) ==
LOC: ED 09:45
DX: L25.8 Unspecified contact dermatitis due to other agents (principal); R55 Syncope and collapse; J44.9 Chronic obstructive pulmonary disease, unspecified; I10 Essential (primary) hypertension
CPT/HCPCS: 99283